=== PATIENT | female | born 1940 | race Hispanic/Latino ===

== ENCOUNTER 2017-07-11 09:37 | Inpatient (IN) | payer OTHER ==
--- OUTSIDE RECORDS SUMMARY | 2017-07-11 09:39 | XMS REPORT | Clinical Summary ---
:1940 Author Organization [facility] Address [address] [place] [id number] Care Team Providers Name Role Phone Fredy Torres MD Primary Care Provider Allergies No Known Allergies Current Medications Prescription Sig. Disp. Refills Start Date End Date Status hydrALAZINE Take 25 mg by mouth 2 Active (APRESOLINE) 25 MG (two) times a day. tablet carvedilol (COREG) 12.5 Take 12.5 mg by mouth Active MG tablet 2 (two) times a day with meals. NIFEdipine XL Take 30 mg by mouth 2 Active (PROCARDIA XL) 30 MG 24 (two) times a day. hr tablet lovastatin (MEVACOR) 10 Take 10 mg by mouth Active MG tablet nightly. bimatoprost (LUMIGAN) Administer 1 drop to Active 0.01 % ophthalmic drops both eyes nightly. sitaGLIPtin-metformin Take 1 tablet by Active (JANUMET XR) 100-1,000 mouth daily. mg tablet, ER multiphase 24 hr Active Problems No known active problems Encounters Date Type Specialty Care Team Description 10/09/2016 Hospital Encounter General Surgery Abram Van MD 10/09/2016 Anesthesia Event General Surgery Patricia Cortés CRNA 10/09/2016 Procedure Pass General Surgery 10/09/2016 Surgery General Surgery Rehan PHACOEMULSIFICATIONAbram MD CATARACT, WITH IOL IMPLANTATION 2016 Emergency Emergency Medicine Deisy Miranda MD (Primary Dx) 2016 Pre-Admit Testing Pre-Admission Preop testing Appointment Testing (Primary Dx) 09/11/2016 Procedure Pass General Surgery 08/07/2016 Procedure Pass General Surgery 08/07/2016 Procedure Pass General Surgery after 07/10/2016 Family History Medical History Relation Name Comments No Known Problems Father Diabetes Mother Relation Name Status Comments Father Mother Social History Tobacco Use Types Packs/Day Years Used Date Former Smoker Cigarettes 0.5 10 Smokeless Tobacco: Never Used Alcohol Use Drinks/Week oz/Week Comments No Sex Assigned at Date Recorded Not on file Last Filed Vital Signs Vital Sign Reading Time Taken Blood Pressure 137/65 10/09/2016 10:30 AM CDT Pulse 54 10/09/2016 10:30 AM CDT Temperature 36.4 C (97.6 F) 10/09/2016 10:30 AM CDT Respiratory Rate 16 10/09/2016 10:30 AM CDT Oxygen Saturation 99% 10/09/2016 10:30 AM CDT Inhaled Oxygen Concentration - - Weight 51.7 kg (114 lb) 10/09/2016 8:16 AM CDT Height 149.9 cm (4' 11") 10/09/2016 8:16 AM CDT Body Mass Index 23.03 10/09/2016 8:16 AM CDT Plan of Treatment Health Maintenance Due Date Last Done Comments BREAST CANCER SCREENING 10/07/1991 COLON CANCER SCREENING 10/07/1991 SHINGRIX VACCINE (#1) 10/07/1991 ZOSTER VACCINE 2001 PNEUMOCOCCAL POLYSACCHARIDE VACCINE AGE 65 AND OVER 2006 PNEUMOCOCCAL-13 2006 INFLUENZA VACCINE 09/26/2017 Implants Implanted Type Area Religion Professor Device Expiration Model / Identifier Date Serial / Lot Lens Iol Asprc Asymet Bicnvx Ant +26.0d 0deg 6x13mm - [id number] - [id number] Intraocular Left: BARTOLOME 04/26/2019 [id number] 260 / Implanted: Qty: 1 on 10/09/2016 by Abram Van MD [employer] [facility] [id number] / [id number] Procedures Procedure Name Priority Date/Time Associated Diagnosis Comments PHACOEMULSIFICATION, 10/09/2016 9:15 AM CATARACT RIGHT EYE CATARACT, WITH IOL CDT H25.11 IMPLANTATION after 07/10/2016 Results POC glucose (10/09/2016 10:02 AM)Only the most recent of2 resultswithin the time period is included. Component Value Ref Range POC glucose 179 (H) 65 - 99 mg/dL Comment: Meter ID: [id number] Card Decorator: William Salvador Specimen Performing Laboratory [facility] DEPARTMENT OF PATHOLOGY AND GENOMIC MEDICINE [address] [place] [address] ECG ED Preliminary Interpretation - NOT AN ORDER (2016 9:53 PM) Narrative Deisy Miranda MD 10/06/20169:53 PM ECG ED Preliminary Interpretation - Not an Order Performed by: DEISY MIRANDA Authorized by: DEISY MIRANDA ECG reviewed by ED Physician in the absence of a signal tower director: yes Rate: ECG rate:58 Rhythm: Rhythm: sinus bradycardia Comments: 1st degree AV block XR Chest 1 Vw Portable (2016 2:30 PM) Specimen Performing Laboratory [facility] [address] [place] [address] Narrative EXAMINATION:XR CHEST 1 VW PORTABLE CLINICAL HISTORY:Chest Pain COMPARISON:None IMPRESSION: Vague 12 mm opacity overlying the right upper lobe is felt more likely to represent anterior first rib rather than a true pulmonary nodule. Chest CT is recommended for confirmation. The lungs are otherwise clear. No pleural fluid or pneumothorax is seen. The cardiomediastinal silhouette and bones are within normal limits. [id number] Procedure Note Hm Interface, Radiology Results Incoming - 2016 3:10 PM CDT EXAMINATION: XR CHEST 1 VW PORTABLE CLINICAL HISTORY: Chest Pain COMPARISON: None IMPRESSION: Vague 12 mm opacity overlying the right upper lobe is felt more likely to represent anterior first rib rather than a true pulmonary nodule. Chest CT is recommended for confirmation. The lungs are otherwise clear. No pleural fluid or pneumothorax is seen. The cardiomediastinal silhouette and bones are within normal limits. [id number] Estimated GFR (2016 2:03 PM) Component Value Ref Range GFR Non Af Amer 48 (A) mL/min/1.73 m2 GFR Af Amer 59 (A) mL/min/1.73 m2 Comment: Chronic kidney disease: <60 mL/min/1.73m2 Kidney failure: <15 mL/min/1.73m2 The estimated GFR is calculated from the IDMS-traceable Modification of Diet in Renal Disease Equation. The accuracy of the calculation is poor when the creatinine is normal. Calculated values >90 mL/min/1.73m2 are not reported. This equation has not been validated in children (<18 years), women, the elderly (>70 years), or ethnic groups other than Caucasians and Americans. Specimen Performing Laboratory Plasma specimen [facility] DEPARTMENT PATHOLOGY AND [employer] [address] [place] [address] Troponin (2016 2:03 PM) Component Value Ref Range Troponin <0.300 0.000 - 0.300 ng/mL Comment: 0.30 - 1.49 ng/mlMay indicate increased risk of acute coronary syndrome. >=1.5 ng/mlConsistent with acute myocardial infarction. The diagnostic value of a single normal or non-diagnostic result is questionable.Serial samples at 2-6 hour intervals are required to rule out acute myocardial injury. Specimen Performing Laboratory Plasma specimen [facility] PATHOLOGY AND [facility] [address] [place] [address] CBC with platelet and differential (2016 2:03 PM) Component Value Ref Range WBC 5.61 4.50 - 11.00 k/uL RBC 3.43 (L) 4.20 - 5.50 m/uL HGB 10.3 (L) 12.0 - 16.0 g/dL HCT 31.3 (L) 37.0 - 47.0 % MCV 91.3 82.0 - 100.0 fL MCH 30.0 27.0 - 34.0 pg MCHC 32.9 31.0 - 37.0 g/dL RDW - SD 41.0 37.0 - 55.0 fL MPV 11.1 8.8 - 13.2 fL Platelet count 183 150 - 400 k/uL Nucleated RBC 0.00 /100 WBC Neutrophils 65.3 39.0 - 69.0 % Lymphocytes 22.8 (L) 25.0 - 45.0 % Monocytes 8.9 0.0 - 10.0 % Eosinophils 2.3 0.0 - 5.0 % Basophils 0.5 0.0 - 1.0 % Immature granulocytes 0.2Comment: "Immature granulocytes" 0.0 - 1.0 % (promyelocytes, myelocytes, metamyelocytes) Specimen Performing Laboratory Blood [facility] DEPARTMENT OF PATHOLOGY AND [facility] [address] [place] [address] Comprehensive metabolic panel (2016 2:03 PM) Component Value Ref Range Sodium 142 135 - 148 mEq/L Potassium 4.5 3.5 - 5.0 mEq/L Chloride 103 98 - 112 mEq/L CO2 28 24 - 31 mEq/L Anion gap 11 7 - 15 mEq/L Comment: Starting from May , anion gap calculation no longer incorporates potassium. Please note the change. BUN 26 (H) 8 - 23 mg/dL Creatinine 1.1 (H) 0.5 - 0.9 mg/dL Glucose 142 (H) 65 - 99 mg/dL Calcium 9.8 8.8 - 10.2 mg/dL Protein 7.3 6.3 - 8.3 g/dL Comment: 4.6-7.0 g/dL 1 week 4.4-7.6 g/dL 7 months-1year5.1-7.3 g/dL 1-2 years5.6-7.5 g/dL >3 years6.0-8.0 g/dL 18-150 6.3-8.3 g/dL Albumin 4.5 3.5 - 5.0 g/dL A/G ratio 1.6 0.7 - 3.8 Alkaline phosphatase 82 35 - 104 U/L AST 15 10 - 35 U/L ALT 7 5 - 50 U/L Total bilirubin <0.2 0.0 - 1.2 mg/dL Specimen Performing Laboratory Plasma specimen [facility] DEPARTMENT OF PATHOLOGY AND GENOMIC MEDICINE [address] [place] [address] ECG 12 lead (2016 1:51 PM) Component Value Ref Range Ventricular rate 58 Atrial rate 58 QRSD interval 86 QT interval 454 QTC interval 445 P axis 1 69 QRS axis 1 31 T wave axis 78 EKG impression Sinus bradycardia with 1st degree AV block-Otherwise normal ECG-No previous ECGs available- Specimen Performing Laboratory [facility] [address] [place] [address] after 07/10/2016 Insurance Payer Benefit Plan / Group Subscriber ID Type Phone Address [employer]NA MEDICARE AETNA MEDICARE HMO/PPO [facility] xxxxxxxx HMO [phone] [address]
[2017-07-11 10:53] LABS: Absolute Monocytes 0.4 K/uL (0.1-1.3); Absolute Neutrophil 5.1 K/uL (1.8-8.0); Basophils % 0.5 % (0-1.3); Hematocrit 30.9 % (36.0-45.0); Lymphocytes % 15.6 % (15.3-44.8); MCH 29.4 pg (27.0-35.0); MCV 90.8 fL (80-100); MPV 10.3 fL (7.6-11.3); Monocytes % 6.6 % (3.3-12.3)
[2017-07-11] MEDS ORDERED: NA CHLORIDE 0.9% 1,000 ML ONE ×2 (11:05→15:33)
[2017-07-11 11:08] LABS: Potassium 4.2 mEq/L (3.6-5.0)
[2017-07-11 11:14] LABS: Albumin 3.9 g/dL (3.2-5.5); Bilirubin Direct 0.1 mg/dL (0-0.2); Bilirubin Total 0.4 mg/dL (0.3-1.2); Protein, Total 6.6 g/dL (6.0-8.3)
--- NOTE | 2017-07-11 12:16 | ER ---
Nurse's Notes [facility] Name: Tika Guadalupe Age: 76 yrs Sex: Female : 1940 Arrival Date: 07/11/2017 Time: 09:41 Bed 13 Private MD: Anthony Torres C Diagnosis: Hypotension;Diarrhea, unspecified Presentation: 07/11 10:05 Presenting complaint: Patient states: Reports diarrhea since last night. 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 Denies pain or blood in stool. Transition of care: patient was not received from another setting of care. Onset of symptoms was July 11, 2017. Care prior to arrival: None. 10:05 Method Of Arrival: Ambulatory aj 10:05 Acuity: APRYL 3 aj 10:40 Initial Sepsis Screen: Does the patient meet any 2 criteria? Mean Arterial Pressure sg (MAP) < 65. No. Patient's initial sepsis screen is negative. Does the patient have a suspected source of infection? No. Patient's initial sepsis screen is negative. Triage Assessment: 10:07 General: Appears in no apparent distress. comfortable, Behavior is calm, cooperative, aj appropriate for age. Pain: Denies pain. Neuro: Level of Consciousness is awake, alert, obeys commands, Oriented to person, place, time, situation, Appropriate for age. Respiratory: Airway is patent Respiratory effort is even, unlabored, Respiratory pattern is regular, symmetrical. GI: Abdomen is flat, non-distended, Reports diarrhea. Derm: Skin is intact, is healthy with good turgor, Skin is pink, warm \T\ dry. normal. Historical: - Allergies: 10:07 No Known Allergies; aj - Home Meds: 12:26 carvedilol 12.5 mg oral tab 1 tab 2 times per day [Active]; lovastatin 10 mg Oral tab 1 sg tab once daily [Active]; clonidine HCl 0.1 mg Oral tab 1 tab 2 times per day [Active]; losartan 100 mg oral tab 1 tab once daily [Active]; nifedipine 30 mg Oral tr24 1 tab twice daily [Active]; hydralazine 25 mg Oral tab 1 tab 2 times per day [Active]; Janumet 50-500 mg oral tab 1 tab 2 times per day [Active]; - PMHx: 14:39 Hypertension; Diabetes - NIDDM; sg - PSHx: 10:07 left masectomy; colon surgery; Appendectomy; Cholecystectomy; aj - Immunization history:: Adult Immunizations up to date. - Social history:: Smoking status: Patient/guardian denies using tobacco. Screenin:10 Abuse screen: Denies threats or abuse. Denies injuries from another. Nutritional iw screening: No deficits noted. Tuberculosis screening: No symptoms or risk factors identified. Fall Risk IV access (20 points). Assessment: 10:40 Reassessment: Donald GRESHAM at bedside at this time. General: Appears in no apparent sg distress. comfortable, slender, well groomed, well developed, well nourished, Behavior is calm, cooperative, appropriate for age. Pain: Denies pain. Neuro: Level of Consciousness is awake, alert, obeys commands, Oriented to person, place, time, situation, Speech is normal, Facial symmetry appears normal. Cardiovascular: Heart tones S1 S2 present Capillary refill is brisk in bilateral fingers. Respiratory: Airway is patent Respiratory effort is even, unlabored, Respiratory pattern is regular, symmetrical, Breath sounds are clear. GI: Abdomen is flat, non-distended, Bowel sounds present X 4 quads. Reports diarrhea. : No signs and/or symptoms were reported regarding the genitourinary system. EENT: No signs and/or symptoms were reported regarding the EENT system. Derm: Skin is intact, is healthy with good turgor, Skin is dry, Skin is pale, Skin temperature is warm. Musculoskeletal: No signs and/or symptoms reported regarding the musculoskeletal system. 10:58 Reassessment: Donald GRESHAM notified of pt VS. sg 11:10 Reassessment: Patient appears in no apparent distress at this time. Patient and/or iw family updated on plan of care and expected duration. Pain level reassessed. Patient is alert, oriented x 3, equal unlabored respirations, skin warm/dry/pink. warm blanket given, son at bedside. 11:46 Reassessment: Donald GRESHAM notified of VS, BP remains hypotensive at this time, orders sg received, see EMAR. 14:50 Reassessment: Patient appears in no apparent distress at this time. Patient and/or sg family updated on plan of care and expected duration. Pain level reassessed. Patient is alert, oriented x 3, equal unlabored respirations, skin warm/dry/pink. pt updated attempt to call report, receiving nurse unavailable at this time, awaiting a call back, pt stated understanding, will continue to monitor, pt son remains at bedside at this time, updated on room number 408, pt son stated understanding. 15:45 Reassessment: Patient appears in no apparent distress at this time. Patient and/or sg family updated on plan of care and expected duration. Pain level reassessed. Patient is alert, oriented x 3, equal unlabored respirations, skin warm/dry/pink. Vital Signs: 10:07 BP 99 / 47; Pulse 63; Resp 19; Temp 97.2; Pulse Ox 99% on R/A; Weight 53.98 kg; Height aj 4 ft. 11 in. (149.86 cm); Pain 0/10; 10:58 BP 96 / 40; Pulse 55; Resp 17 S; Pulse Ox 98% on R/A; Pain 0/10; sg 11:40 BP 88 / 37; Pulse 55; Resp 16; Pulse Ox 100% on R/A; Pain 0/10; sg 12:21 BP 92 / 37; Pulse 56; Resp 16; Pulse Ox 99% on R/A; Pain 0/10; sg 12:26 BP 96 / 50; sg 13:30 BP 94 / 50; Pulse 60; Resp 18; Pulse Ox 100% on R/A; Pain 0/10; sg 14:50 BP 92 / 52; Pulse 58 MON; Resp 17 S; Pulse Ox 100% on R/A; sg 15:40 BP 96 / 54; Pulse 56; Resp 17; Temp 97.2; Pulse Ox 97% on R/A; Pain 0/10; sg 16:00 BP 104 / 55; Pulse 57; Resp 16; Pulse Ox 97% on R/A; Pain 0/10; sg 10:07 Body Mass Index 24.03 (53.98 kg, 149.86 cm) aj Rona Coma Score: 11:40 Eye Response: spontaneous(4). Verbal Response: oriented(5). Motor Response: obeys sg commands(6). Total: 15. 12:21 Eye Response: spontaneous(4). Verbal Response: oriented(5). Motor Response: obeys sg commands(6). Total: 15. 13:30 Eye Response: spontaneous(4). Verbal Response: oriented(5). Motor Response: obeys sg commands(6). Total: 15. 14:50 Eye Response: spontaneous(4). Verbal Response: oriented(5). Motor Response: obeys sg commands(6). Total: 15. 15:40 Eye Response: spontaneous(4). Verbal Response: oriented(5). Motor Response: obeys sg commands(6). Total: 15. ED Course: 09:41 Patient arrived in ED. mr 09:41 Anthony Torres MD is Private Physician. mr 10:06 Triage completed. aj 10:07 Arm band placed on right wrist. Patient placed in an exam room, on a stretcher. aj 10:10 Patient has correct armband on for positive identification. Placed in gown. Bed in low sg position. Call light in reach. Side rails up X2. nuclear monitoring technician on. Pulse ox on. NIBP on. Warm blanket given. Head of bed elevated. 10:22 Donald Eden PA is PHCP. jr8 10:22 Venancio Norris MD is Attending Physician. jr8 10:40 Initial lab(s) drawn, by co, sent to lab. Inserted saline lock: 22 gauge in right sg wrist, using aseptic technique. Blood collected. 10:40 No provider procedures requiring assistance completed. sg 10:53 Chau Langford RN is Primary Nurse. sg 12:14 Anthony Torres MD is Hospitalizing Provider. jr8 16:00 Patient admitted, IV remains in place. intact, No redness/swelling at site. sg Administered Medications: 11:09 Drug: NS 0.9% 500 ml Route: IV; Rate: bolus; Site: right wrist; iw 11:46 Follow up: Response: No adverse reaction; IV Status: Completed infusion; IV Intake: sg 500ml 11:45 Drug: NS 0.9% 500 ml Route: IV; Rate: bolus; Site: right wrist; sg 15:44 Drug: NS 0.9% 500 ml Route: IV; Rate: bolus; Site: right wrist; sg Intake: 11:46 IV: 500ml; Total: 500ml. sg Outcome: 12:15 Decision to Hospitalize by Provider. jr8 15:50 Admitted to Tele accompanied by tech, family with patient, via stretcher, room 408, sg with chart, Report called to Aysha DIAZ 15:50 Condition: stable 15:50 Instructed on follow up and referral plans. medication usage, safety practices, Demonstrated understanding of instructions. 15:57 Patient left the ED. iw Signatures: Chau Langford RN RN sg Myers, Amanda, RN RN aj Rivera, Maria mr Williams, Irene, RN RN iw Roszak, Josh, PA PA jr8
--- NOTE | 2017-07-11 12:16 | EDPHYS ---
Physician Documentation [facility] Name: Tika Guadalupe Age: 76 yrs Sex: Female : 1940 Arrival Date: 07/11/2017 Time: 09:41 Bed 13 Private MD: Anthony Torres C ED Physician Venancio Norris HPI: 07/11 11:01 This 76 yrs old Female presents to ER via Ambulatory with complaints of jr8 Diarrhea. 11:01 The patient presents to the emergency department with diarrhea. Onset: The jr8 symptoms/episode began/occurred acutely, yesterday. Possible causes: unknown. The symptoms are aggravated by nothing. The symptoms are alleviated by nothing. Associated signs and symptoms: The patient has no apparent associated signs or symptoms. Severity of symptoms: At their worst the symptoms were mild in the emergency department the symptoms are unchanged. It is unknown whether or not the patient has had similar symptoms in the past. The patient has not recently seen a physician. 2 days of diarrhea. Denies abdominal pain, n/v, fevers, blood or mucous in stool . Historical: - Allergies: 10:07 No Known Allergies; aj - Home Meds: 12:26 carvedilol 12.5 mg oral tab 1 tab 2 times per day [Active]; lovastatin 10 mg Oral tab 1 sg tab once daily [Active]; clonidine HCl 0.1 mg Oral tab 1 tab 2 times per day [Active]; losartan 100 mg oral tab 1 tab once daily [Active]; nifedipine 30 mg Oral tr24 1 tab twice daily [Active]; hydralazine 25 mg Oral tab 1 tab 2 times per day [Active]; Janumet 50-500 mg oral tab 1 tab 2 times per day [Active]; - PMHx: 14:39 Hypertension; Diabetes - NIDDM; sg - PSHx: 10:07 left masectomy; colon surgery; Appendectomy; Cholecystectomy; aj - Immunization history:: Adult Immunizations up to date. - Social history:: Smoking status: Patient/guardian denies using tobacco. ROS: 11:01 Eyes: Negative for injury, pain, redness, and discharge, ENT: Negative for injury, jr8 pain, and discharge, Neck: Negative for injury, pain, and swelling, Cardiovascular: Negative for chest pain, palpitations, and edema, Respiratory: Negative for shortness of breath, cough, wheezing, and pleuritic chest pain, Back: Negative for injury and pain, MS/Extremity: Negative for injury and deformity, Skin: Negative for injury, rash, and discoloration, Neuro: Negative for headache, weakness, numbness, tingling, and seizure. 11:01 Abdomen/GI: Positive for diarrhea, Negative for abdominal pain, nausea and vomiting, constipation, abdominal cramps, abdominal distension, anorexia, dysphagia, hematemesis, black/tarry stool, rectal pain, rectal bleeding, bowel incontinence, flatulence. Exam: 11:01 Eyes: Pupils equal round and reactive to light, extra-ocular motions intact. Lids and jr8 lashes normal. Conjunctiva and sclera are non-icteric and not injected. Cornea within normal limits. Periorbital areas with no swelling, redness, or edema. ENT: Nares patent. No nasal discharge, no septal abnormalities noted. Tympanic membranes are normal and external auditory canals are clear. Oropharynx with no redness, swelling, or masses, exudates, or evidence of obstruction, uvula midline. Mucous membranes moist. Neck: Trachea midline, no thyromegaly or masses palpated, and no cervical lymphadenopathy. Supple, full range of motion without nuchal rigidity, or vertebral point tenderness. No Meningismus. Cardiovascular: Regular rate and rhythm with a normal S1 and S2. No gallops, murmurs, or rubs. Normal PMI, no JVD. No pulse deficits. Respiratory: Lungs have equal breath sounds bilaterally, clear to auscultation and percussion. No rales, rhonchi or wheezes noted. No increased work of breathing, no retractions or nasal flaring. Abdomen/GI: Soft, non-tender, with normal bowel sounds. No distension or tympany. No guarding or rebound. No evidence of tenderness throughout. Back: No spinal tenderness. No costovertebral tenderness. Full range of motion. Skin: Warm, dry with normal turgor. Normal color with no rashes, no lesions, and no evidence of cellulitis. MS/ Extremity: Pulses equal, no cyanosis. Neurovascular intact. Full, normal range of motion. Neuro: Awake and alert, GCS 15, oriented to person, place, time, and situation. Cranial nerves II-XII grossly intact. Motor strength 5/5 in all extremities. Sensory grossly intact. Cerebellar exam normal. Normal gait. Vital Signs: 10:07 BP 99 / 47; Pulse 63; Resp 19; Temp 97.2; Pulse Ox 99% on R/A; Weight 53.98 kg; Height aj 4 ft. 11 in. (149.86 cm); Pain 0/10; 10:58 BP 96 / 40; Pulse 55; Resp 17 S; Pulse Ox 98% on R/A; Pain 0/10; sg 11:40 BP 88 / 37; Pulse 55; Resp 16; Pulse Ox 100% on R/A; Pain 0/10; sg 12:21 BP 92 / 37; Pulse 56; Resp 16; Pulse Ox 99% on R/A; Pain 0/10; sg 12:26 BP 96 / 50; sg 13:30 BP 94 / 50; Pulse 60; Resp 18; Pulse Ox 100% on R/A; Pain 0/10; sg 14:50 BP 92 / 52; Pulse 58 MON; Resp 17 S; Pulse Ox 100% on R/A; sg 15:40 BP 96 / 54; Pulse 56; Resp 17; Temp 97.2; Pulse Ox 97% on R/A; Pain 0/10; sg 16:00 BP 104 / 55; Pulse 57; Resp 16; Pulse Ox 97% on R/A; Pain 0/10; sg 10:07 Body Mass Index 24.03 (53.98 kg, 149.86 cm) aj Rona Coma Score: 11:40 Eye Response: spontaneous(4). Verbal Response: oriented(5). Motor Response: obeys sg commands(6). Total: 15. 12:21 Eye Response: spontaneous(4). Verbal Response: oriented(5). Motor Response: obeys sg commands(6). Total: 15. 13:30 Eye Response: spontaneous(4). Verbal Response: oriented(5). Motor Response: obeys sg commands(6). Total: 15. 14:50 Eye Response: spontaneous(4). Verbal Response: oriented(5). Motor Response: obeys sg commands(6). Total: 15. 15:40 Eye Response: spontaneous(4). Verbal Response: oriented(5). Motor Response: obeys sg commands(6). Total: 15. MDM: 10:22 Patient medically screened. jr8 12:13 Data reviewed: vital signs, nurses notes, lab test result(s), and as a result, I will jr8 admit patient. Data interpreted: Pulse oximetry: on room air is 100 %. Interpretation: normal. Counseling: I had a detailed discussion with the patient and/or guardian regarding: the historical points, exam findings, and any diagnostic results supporting the discharge/admit diagnosis, lab results, the need for further work-up and treatment in the hospital. Physician consultation: A Brian AHUMADA was called at 12:13, was contacted at 12:14, regarding admission, to the medical/surgical unit. consult, patient's condition, and will see patient Dr. Torres wants to admit for blood pressure control and diarrhea. Requests inpatient admission. 07/11 10:23 Order name: Basic Metabolic Panel; Complete Time: 11:38 07/11 10:23 Order name: CBC with Diff; Complete Time: 10:59 07/11 10:23 Order name: Creatinine for Radiology; Complete Time: 11:10 [facility] 07/11 10:23 Order name: Hepatic Function; Complete Time: 11:38 [facility] 07/11 10:23 Order name: Lipase; Complete Time: 11:38 07/11 15:46 Order name: Urine Dipstick--Ancillary (enter results) em1 07/11 10:23 Order name: IV Saline Lock; Complete Time: 10:53 07/11 10:23 Order name: Labs collected and sent; Complete Time: 10:53 Administered Medications: 11:09 Drug: NS 0.9% 500 ml Route: IV; Rate: bolus; Site: right wrist; iw 11:46 Follow up: Response: No adverse reaction; IV Status: Completed infusion; IV Intake: sg 500ml 11:45 Drug: NS 0.9% 500 ml Route: IV; Rate: bolus; Site: right wrist; sg 15:44 Drug: NS 0.9% 500 ml Route: IV; Rate: bolus; Site: right wrist; sg Disposition: 18:03 Co-signature as Attending Physician, Venancio Norris MD I agree with the assessment and kdr plan of care. Disposition: 07/11/17 12:15 Hospitalization ordered by Anthony Torres for Inpatient Admission. Preliminary diagnosis are Hypotension, Diarrhea, unspecified. - Bed requested for Telemetry/MedSurg (Inpatient). - Status is Inpatient Admission. iw - Condition is Stable. - Problem is new. - Symptoms are unchanged. UTI on Admission? No Signatures: Dispatcher [employer] EDMS Chau Langford, RN Dorinda Galicia, RN Venancio Almonte MD MD kdr Williams, Irene, RN RN iw Martinez, Eric em1 Donald Eden PA PA jr8 Corrections: (The following items were deleted from the chart) 14:56 12:15 Hospitalization Ordered by A Brian AHUMADA for Inpatient Admission. Preliminary em1 diagnosis is Hypotension; Diarrhea, unspecified. Bed requested for Telemetry/MedSurg (Inpatient). Status is Inpatient Admission. Condition is Stable. Problem is new. Symptoms are unchanged. UTI on Admission? No. jr8 15:57 14:56 07/11/2017 12:15 Hospitalization Ordered by A Brian AHUMADA for Inpatient Admission. iw Preliminary diagnosis is Hypotension; Diarrhea, unspecified. Bed requested for Telemetry/MedSurg (Inpatient). Status is Inpatient Admission. Condition is Stable. Problem is new. Symptoms are unchanged. UTI on Admission? No. em1
[2017-07-11] MEDS ORDERED: D50W 25 GM/50 ML SYRINGE IV PRN (16:36)
[2017-07-11] MEDS: INSULIN -REGULAR HUMAN 50 UNIT/0.5 ML ML SQ SCH ×2 (16:36→21:00)
[2017-07-11] MEDS ORDERED: GLUCAGON 1 MG/VIAL IM PRN (16:36)
[2017-07-11] MEDS: NA CHLORIDE 0.9% 1,000 ML IV SCH ×2 (16:36→20:24)
[2017-07-11] MEDS ORDERED: ONDANSETRON 4 MG/2 ML VIAL IV PRN (16:36)
[2017-07-11] MEDS ORDERED: ACETAMINOPHEN 500 MG TAB PO PRN (16:36)
[2017-07-11 16:44] LABS: Urine Blood NEGATIVE (NEG); Urine Glucose NEGATIVE (NEG); Urine Protein NEGATIVE (NEG); Urine Specific Gravity 1.015 (1.005-1.030); Urine pH 7.5 (5.0-7.0)
[2017-07-11 17:12] VITALS: BMI 24.0
[2017-07-12] MEDS: NA CHLORIDE 0.9% 1,000 ML IV SCH (02:36)
[2017-07-12 04:06] LABS: Absolute Lymphocytes (CBC) 1.4 K/uL (0.7-4.9); Absolute Monocytes 0.6 K/uL (0.1-1.3); Absolute Neutrophil 3.7 K/uL (1.8-8.0); Basophils % 0.6 % (0-1.3); Eosinophils % 1.9 % (0-4.4); Hematocrit 29.3 % (36.0-45.0); MCH 29.5 pg (27.0-35.0); MPV 10.2 fL (7.6-11.3); Monocytes % 10.1 % (3.3-12.3); RBC Red Blood Cell Count 3.22 M/uL (3.86-4.86)
[2017-07-12 04:46] LABS: Potassium 4.1 mEq/L (3.6-5.0)
--- NOTE | 2017-07-12 06:18 | HP ---
Date of Admission: 07/11/2017 Chief Complaint: Diarrhea, weak. History Of Present Illness: A 76-year-old female patient who lives with her son , started her diarrhea yesterday. At this moment, the patient's son brought her in the emergency room. The patient did take her antihypertensive medication this morning. Normally without her blood pressure medication, her blood pressure runs extremely high anywhere between 180-200 systolic blood pressure range but if she takes her blood pressure medications regularly then it is well controlled. Today in the emergency room, her lowest systolic blood pressure was 88 systolic. After she was evaluated in the ER, I was contacted requesting admission to the hospital. Since her time of presentation to the emergency room till I saw her this evening. She received approximately 1800 cc of IV fluids and her systolic blood pressure is still running in the range of between 90 to 100. She denies any abdominal pain. No nausea, no vomiting. No bleeding. Allergies: SHE IS LISTED ALLERGIC TO GLIMEPIRIDE, CAUSING ITCHING. Review of Systems: GI: As mentioned above. Constitutional: As mentioned above. All other systems reviewed and negative. Past Medical History: Significant for type 2 diabetes mellitus, mixed hyperlipidemia, hypertension, left breast cancer, anemia, gastroesophageal reflux disease, prior history of asthma, osteoarthritis at multiple sites. Past Surgical History: Mastectomy in 1995. Family History: Significant for father had stroke. Mother, hypertension and diabetes mellitus. Social History: Negative for smoking and alcohol use. Medications: Aspirin 81 mg p.o. daily, carvedilol 12.5 mg 2 times a day, clonidine 0.1 mg 2 times a day, hydralazine 25 mg the patient takes 2 tablets by mouth 2 times a day, Janumet one tablet p.o. 2 times a day, losartan 100 mg p.o. daily, lovastatin 10 mg p.o. daily, Lumigan eye drops, and nifedipine ER 30 mg p.o. 2 times a day. Physical Examination: Vital Signs: Initial blood pressure when she was admitted 99/47, pulse 63, respiratory rate 19, temperature 97.2, oxygen saturation 99%, height 4 feet 11 inches, weight 119 pounds. General: Awake, alert, oriented, not in distress. HEENT: Head atraumatic, normocephalic. Conjunctivae nonerythematous. Sclerae white. Mouth, no thrush or edema noted. Ears/Nose, no mass, lesion, discharge noted. Neck: Supple. No JVD, lymph nodes, bruit, thyromegaly noted. Lungs: Bilateral good equal air entry. Clear to auscultation. No rhonchi. No rales. Heart: Normal heart sounds, no murmur or gallop. Abdomen: Soft, bowel sounds normal. No guarding, rigidity, tenderness, mass, hepatosplenomegaly, distention, or bruit noted. Extremities: No leg edema. No calf tenderness. Skin: No rash, ulcer, cellulitis. Lymphatics: No lymph node enlargement in neck, supraclavicular, infraclavicular region. Neuro: No focal neurological deficit. Chest: Unremarkable. External Genitalia: Deferred. Rectal: Deferred. Laboratory Data: White count 6.6, hemoglobin 10, platelets 156. Sodium 136, potassium 4.2, chloride 105, bicarb 23, BUN 43, creatinine 1.71. Glucose 153. Liver function tests unremarkable. Lipase 20. Urinalysis; 1+ leukocyte esterase, 2+ ketones. Impression: 1. Acute gastroenteritis. 2. Volume depletion. 3. Acute kidney injury. 4. Type 2 diabetes mellitus. 5. Mixed hyperlipidemia. 6. Hypertension. 7. Left breast cancer. 8. Osteoarthritis, multiple sites. 9. Gastroesophageal reflux disease. Plan: 1. Admit the patient to hospital for further evaluation and management of this problem. The patient is appropriate for inpatient and is expected to spend 2 midnights in hospital. We will continue IV fluid hydration, monitor her renal function electrolytes, fall precautions, and DVT prophylaxis will be ordered. I will see her tomorrow for followup. We will repeat blood work tomorrow morning. Depending on the patient's condition, possible discharge day after tomorrow. Details and plan of treatment discussed with the patient and family member who was at bedside. We will hold her antihypertensive and diabetes medication at this point. We will restart it at appropriate time. We will start her on clear liquid diet and tomorrow, we will consider to advance diet depending on her condition. ABNER/MODL Voice ID: [id number] FERNANDA
[2017-07-12] MEDS: INSULIN -REGULAR HUMAN 50 UNIT/0.5 ML ML SQ SCH ×4 (07:30→21:00)
[2017-07-12] MEDS ORDERED: cloNIDine HCl 0.1 MG TAB PO SCH (09:00)
[2017-07-12] MEDS: NACHLORIDE 0.45% 1,000 ML IV SCH ×3 (09:00→21:02)
[2017-07-12] MEDS: ENOXAPARIN 30 MG/0.3 ML SQ SCH (13:07)
[2017-07-12] MEDS: ASPIRIN EC 81 MG TAB PO SCH (13:08)
[2017-07-12] MEDS: HYDRALAZINE HCL 25 MG TABLET PO SCH ×2 (13:08→21:03)
[2017-07-12] MEDS: CARVEDILOL 12.5 MG TAB PO SCH ×2 (13:08→21:03)
[2017-07-12] MEDS: NIFEDIPINE XL 30 MG TABLET PO SCH ×2 (14:12→21:02)
[2017-07-12] MEDS: cloNIDine HCl 0.1 MG TAB PO PRN (16:34)
[2017-07-12] MEDS: ATORVASTATIN 10 MG TAB PO SCH (17:49)
--- NOTE | 2017-07-13 01:49 | PN ---
Date of Progress Note: 07/12/2017 Subjective: The patient was seen this morning for followup. No new complaints or problems reported by patient. She was lying in bed, not in any distress. There was no family member with her at [facility]. Denies any abdominal pain, nausea or vomiting. No diarrhea overnight, no bleeding. Objective: Vital signs: Reviewed. HEENT: Unremarkable. Lungs: Clear to auscultation. Heart: Heart sounds normal. Abdomen: Soft. Bowel sounds normal. No guarding, rigidity, tenderness, or distention. Extremities: No leg edema. Laboratory Data: White count 5.8, hemoglobin 9.5, platelets 140. Sodium 141, potassium 4.1, chlorid e 115, bicarb 24, BUN 32, creatinine 1.07. Impression: 1.Acute gastroenteritis. 2.Hypertension. 3.Type 2 diabetes mellitus. 4.Anemia, chronic. Plan: The patient's blood pressure started to go up today. Her home medications were continued incl uding her antihypertensive medication. IV fluid was changed. A volume depletion problem has improve d and the IV fluid was changed to half-normal saline. We will repeat blood work tomorrow. Ambulatio n was encouraged. Consultation with physical therapy was ordered to help ambulate the patient and du ring course of day today for elevated blood pressure, we did have to start her on p.r.n. use of cloni dine. I expect her blood pressure to come under better control once she gets back on her usual medic ations. Diet was advanced and I will see her tomorrow for followup. Possible discharge to go home tomorrow depending on her condition. ABNER/MODL Voice ID: [id number] Report ID: [id number]
[2017-07-13] MEDS: INSULIN -REGULAR HUMAN 50 UNIT/0.5 ML ML SQ SCH ×4 (07:30→20:47)
[2017-07-13 08:26] LABS: Folic Acid, (Folate) 15.7 ng/ml (>5.21); Magnesium 1.7 mg/dL (1.8-2.5); Thyroid Stimulating Hormone 3.34 uIU/mL (0.34-5.60)
[2017-07-13] MEDS: NACHLORIDE 0.45% 1,000 ML IV SCH (09:57)
[2017-07-13] MEDS: ENOXAPARIN 30 MG/0.3 ML SQ SCH (09:58)
[2017-07-13] MEDS: CARVEDILOL 12.5 MG TAB PO SCH ×2 (09:59→20:42)
[2017-07-13] MEDS: HYDRALAZINE HCL 25 MG TABLET PO SCH ×2 (09:59→20:42)
[2017-07-13] MEDS: ASPIRIN EC 81 MG TAB PO SCH (09:59)
[2017-07-13] MEDS: NIFEDIPINE XL 30 MG TABLET PO SCH (09:59)
[2017-07-13] MEDS: cloNIDine HCl 0.1 MG TAB PO PRN (12:19)
[2017-07-13] MEDS ORDERED: NIFEDIPINE XL 30 MG TABLET PO ONE (13:30)
[2017-07-13] MEDS: ATORVASTATIN 10 MG TAB PO SCH (18:34)
[2017-07-13] MEDS: NIFEDIPINE XL 60 MG TABLET PO SCH (20:47)
--- NOTE | 2017-07-13 22:28 | PN ---
Date of Progress Note: 07/13/2017 Subjective: The patient was seen this morning. She was lying in bed, not in any distress. Denied a ny complaints. No abdominal pain, nausea, or vomiting. No diarrhea. No bleeding per rectum. Objective: Vital signs: Reviewed. This morning, her systolic blood pressure was between 120-130, b ut then it started going up and it remained between 180-200 systolic. HEENT: Examination unremarkable. Lungs: Clear to auscultation. Heart: Heart sounds normal. Abdomen: Soft. Bowel sounds normal. No guarding, rigidity, tenderness, or distention. Extremities: No leg edema. Laboratory Data: Labs reviewed. Chem-7 shows renal function has improved today. Impression: 1.Acute gastroenteritis. 2.Volume depletion. 3.Hypertension, uncontrolled. 4.Type 2 diabetes mellitus. 5.Anemia, chronic. Plan: We will go ahead and continue current medications. The patient's antihypertensive medications will be continued except one extra dose of nifedipine 30 mg p.o. x1 dose was ordered this afternoon, and as of this evening, we will increase dose from 30 mg 2 times a day to 60 mg 2 times a day. Cont inue rest of her medications. I will see her tomorrow for followup. Depending on blood pressure, we will decide if we can discharge her tomorrow or not. Ambulation was encouraged with physical therapy . She is tolerating diet very well. ABNER/MODL Voice ID: [id number] Report ID: [id number]
[2017-07-13 22:30] VITALS: O2SAT 98
[2017-07-14] MEDS: INSULIN -REGULAR HUMAN 50 UNIT/0.5 ML ML SQ SCH (07:30)
[2017-07-14 08:23] VITALS: BP 169/59; TEMP 97
[2017-07-14] MEDS: NIFEDIPINE XL 60 MG TABLET PO SCH (09:38)
[2017-07-14] MEDS: ENOXAPARIN 30 MG/0.3 ML SQ SCH (09:38)
[2017-07-14] MEDS: HYDRALAZINE HCL 25 MG TABLET PO SCH (09:39)
[2017-07-14] MEDS: ASPIRIN EC 81 MG TAB PO SCH (09:39)
[2017-07-14] MEDS: CARVEDILOL 12.5 MG TAB PO SCH (09:39)
--- NOTE | 2017-07-15 14:30 | DS ---
Date of Discharge: 07/14/2017 Subjective: The patient was seen this morning for followup. Her 2 sons were present at bedside. She was sitting in the chair feeling much better, looking much better. No new complaints or problems reported. No abdominal pain. No nausea, vomiting. No diarrhea. No bleeding. Objective: Vital Signs: Reviewed. HEENT: Examination unremarkable. Lungs: Clear to auscultation. Heart: Heart sounds normal. Abdomen: Soft, bowel sounds normal. No guarding, rigidity, tenderness, or distention. Extremities: No leg edema. Hospital Course: A 76-year-old female patient, admitted to the hospital after she presented to the emergency room with complaints of feeling weak and diarrhea. Please see dictated H and P for more information. The patient came in with volume depletion and acute kidney injury with acute gastroenteritis problem. Her BUN was 43, creatinine 1.71. Liver function tests were unremarkable. She was admitted to the hospital with these problems, was started on IV fluid hydration. Her initial systolic blood pressure was 88 in emergency room when she presented. On IV fluid hydration her condition improved. We started her on diet that she tolerated. Physical therapy was consulted to help ambulate the patient. Overall, her condition has improved. She has not had any recurrence of diarrhea after admission to the hospital. No vomiting. Her blood pressure was initially very low when she came in. She takes multiple blood pressure medications as noted in history and physical. During beginning part of this hospital admission, we did not give her any hypertension medication as her blood pressure was low, but then as blood pressure started coming up we restarted all her home medications. IV fluid was continued. Her renal function came back to normal with IV fluid hydration and in fact, her blood pressure started going up in spite of continue all her usual home medications, her blood pressure was around 200 systolic, so we had to make some more adjustment on her antihypertensive medication, and yesterday I increased her nifedipine from 30 mg twice a day to 60 mg twice a day, and that has actually helped to bring her blood pressure down under better control. We will continue to monitor on outpatient basis and make further adjustment on medications if it becomes necessary. She is feeling fine. Has no complaints, and she is being discharged to go home in stable condition with following discharge medications and instructions: Final Diagnoses: 1. Acute gastroenteritis. 2. Volume depletion. 3. Acute kidney injury. 4. Type 2 diabetes mellitus. 5. Hypertension. 6. Mixed hyperlipidemia. 7. Left breast cancer. 8. Osteoarthritis, multiple sites. 9. Gastroesophageal reflux disease. 10. Vitamin D deficiency. Discharge Medications And Instructions: 1. Continue all prior home medication except stop nifedipine 30 mg dose and start to take nifedipine 60 mg 2 times a day. 2. Follow up at my office in 3 weeks and take [id number] vitamin D3 2000 unit 1 tablet by mouth daily. ABNER/ANETA Voice ID: [id number] Report ID: [id number]
== END 2017-07-14 10:47 | disposition home or self-care (01) | DRG 392 ==
LOC: ER 09:37 → ERHOLD 12:19 → 4TH 15:16
PROVIDERS: ADMIT Internal Medicine; ATTEND Internal Medicine
DX: K52.9 Noninfective gastroenteritis and colitis, unspecified (principal); N17.9 Acute kidney failure, unspecified; E86.9 Volume depletion, unspecified; E11.9 Type 2 diabetes mellitus without complications; I10 Essential (primary) hypertension; E78.2 Mixed hyperlipidemia; M19.90 Unspecified osteoarthritis, unspecified site; K21.9 Gastro-esophageal reflux disease without esophagitis; E55.9 Vitamin D deficiency, unspecified; D64.9 Anemia, unspecified; Z85.3 Personal history of malignant neoplasm of breast
CPT/HCPCS: 36415; 80048; 80076; 81003; 82306; 82607; 82746; 82962; 83690; 83735; 84443; 85025; 96360; 97163; 99285; J1650; J7030

== ENCOUNTER 2019-01-14 13:31 | Emergency (ER) | payer OTHER ==
[2019-01-14 15:29] LABS: Absolute Lymphocytes (CBC) 1.3 K/uL (0.7-4.9); Basophils % 0.4 % (0-1.3); Hematocrit 26.9 % (36.0-45.0); Lymphocytes % 26.2 % (15.3-44.8); MPV 9.8 fL (7.6-11.3); RBC Red Blood Cell Count 2.99 M/uL (3.86-4.86)
[2019-01-14 15:39] LABS: Potassium 4.5 mmol/L (3.5-5.1)
[2019-01-14] MEDS ORDERED: HYDRALAZINE HCL 20 MG/ML VIAL ONE (17:28)
--- NOTE | 2019-01-14 18:02 | ER ---
Nurse's Notes [facility] Name: Tika Guadalupe Age: 78 yrs Sex: Female : 1940 Arrival Date: 01/14/2019 Time: 13:34 Bed 20 Private MD: Anthony Torres C Diagnosis: Hypertension Presentation: 01/14 13:52 Presenting complaint: Home health aide reports BP 208/87 after taking scheduled hb hypertension medication today. Pt denies pain/SOB. Transition of care: patient was not received from another setting of care. Onset of symptoms was January 14, 2019. Risk Assessment: Do you want to hurt yourself or someone else? Patient reports no desire to harm self or others. Care prior to arrival: None. 13:52 Method Of Arrival: Ambulatory hb 13:52 Acuity: APRYL 3 hb 14:10 Initial Sepsis Screen: Does the patient meet any 2 criteria? No. Patient's initial tw2 sepsis screen is negative. Does the patient have a suspected source of infection? No. Patient's initial sepsis screen is negative. Historical: - Allergies: 13:56 No Known Allergies; hb - Home Meds: 13:56 carvedilol 12.5 mg Oral tab 1 tab 2 times per day [Active]; clonidine HCl 0.1 mg Oral hb tab 1 tab 2 times per day [Active]; hydralazine 50 mg oral tab 2 times per day [Active]; Janumet 50-500 mg Oral tab 1 tab 2 times per day [Active]; losartan 100 mg Oral tab 1 tab once daily [Active]; lovastatin 10 mg Oral tab 1 tab once daily [Active]; nifedipine 60 mg oral tr24 once daily [Active]; aspirin 81 mg Oral chew [Active]; - PMHx: 13:56 Diabetes - NIDDM; Hypertension; hb - PSHx: 13:56 left masectomy; colon surgery; Appendectomy; Cholecystectomy; hb - Immunization history:: Adult Immunizations up to date. - Social history:: Smoking status: Patient/guardian denies using tobacco. - Ebola Screening: : No symptoms or risks identified at this time. - Family history:: not pertinent. - Hospitalizations: : No recent hospitalization is reported. Screenin:10 Abuse screen: Denies threats or abuse. Nutritional screening: No deficits noted. tw2 Tuberculosis screening: No symptoms or risk factors identified. Fall Risk Secondary diagnosis (15 points) impaired mobility. Assessment: 14:11 General: Appears in no apparent distress. Behavior is calm, cooperative, appropriate tw2 for age. Pain: Denies pain. Neuro: Level of Consciousness is awake, alert, obeys commands, Oriented to person, place, time, situation. Cardiovascular: Denies chest pain, shortness of breath, Patient's skin is warm and dry. Respiratory: Airway is patent Respiratory effort is even, unlabored, Respiratory pattern is regular, symmetrical. GI: No signs and/or symptoms were reported involving the gastrointestinal system. : No signs and/or symptoms were reported regarding the genitourinary system. EENT: No signs and/or symptoms were reported regarding the EENT system. Derm: No signs and/or symptoms reported regarding the dermatologic system. Musculoskeletal: No signs and/or symptoms reported regarding the musculoskeletal system. Range of motion: intact in all extremities. 14:20 Reassessment: provider at bedside at this time. tw2 15:02 Reassessment: Patient appears in no apparent distress at this time. Patient is alert, ca1 oriented x 3, equal unlabored respirations, skin warm/dry/pink. 16:09 Reassessment: Patient appears in no apparent distress at this time. Patient is alert, ca1 oriented x 3, equal unlabored respirations, skin warm/dry/pink. 17:00 Reassessment: Patient appears in no apparent distress at this time. Patient and/or ca1 family updated on plan of care and expected duration. Pain level reassessed. Patient is alert, oriented x 3, equal unlabored respirations, skin warm/dry/pink. 18:03 Reassessment: Patient appears in no apparent distress at this time. Patient is alert, ca1 oriented x 3, equal unlabored respirations, skin warm/dry/pink. Vital Signs: 13:53 BP 169 / 58; Pulse 55; Resp 16; Temp 97.8; Pulse Ox 100% on R/A; Weight 63.5 kg; Height hb 4 ft. 10 in. (147.32 cm); Pain 0/10; 14:20 BP 204 / 69; Pulse 52; Resp 17; Pulse Ox 98% on R/A; tw2 15:30 BP 227 / 74; Pulse 52; Resp 17 S; Pulse Ox 98% on R/A; ca1 16:09 BP 234 / 86; Pulse 52; Resp 17 S; Pulse Ox 98% on R/A; ca1 16:33 BP 214 / 75; Pulse 52; Resp 18 S; Pulse Ox 98% on R/A; ca1 17:00 BP 213 / 72; Pulse 51; Resp 17 S; Pulse Ox 99% on R/A; ca1 17:30 BP 197 / 64; Pulse 51; Resp 16 S; Pulse Ox 98% on R/A; ca1 18:03 BP 198 / 61; Pulse 53; Resp 17 S; Pulse Ox 97% on R/A; ca1 13:53 Body Mass Index 29.26 (63.50 kg, 147.32 cm) hb ED Course: 13:34 Patient arrived in ED. mr 13:35 Anthony Torres MD is Private Physician. mr 13:53 Triage completed. hb 13:53 Arm band placed on. hb 13:57 Bed in low position. Call light in reach. tw2 14:08 Clarke Mitchell MD is Attending Physician. rn 14:42 EKG done, by veterinary technician instructor. reviewed by Clarke Mitchell MD. sm3 14:44 Carrie Mata, EMILY is Primary Nurse. ca1 14:55 Initial lab(s) drawn, by me, sent to lab. Missed attempt(s): 20 gauge in right bb antecubital area. Inserted saline lock: 20 gauge in right antecubital area, using aseptic technique. Blood collected. 18:01 Anthony Torres MD is Referral Physician. rn 18:12 No provider procedures requiring assistance completed. IV discontinued, intact, ca1 bleeding controlled, No redness/swelling at site. Pressure dressing applied. Administered Medications: 16:09 Drug: cloNIDine 0.1 mg Route: PO; ca1 17:25 Follow up: Response: No adverse reaction; Blood pressure is unchanged ca1 17:30 Drug: hydrALAZINE 5 mg Route: IV; Rate: calculated rate; Site: right antecubital; ca1 18:00 Follow up: Response: No adverse reaction; Blood pressure is lowered; IV Status: ca1 Completed infusion Outcome: 18:02 Discharge ordered by . rn 18:12 Discharged to home via wheelchair, with family. ca1 18:12 Condition: stable 18:12 Discharge instructions given to patient, family, Instructed on discharge instructions, follow up and referral plans. Demonstrated understanding of instructions, follow-up care. 18:14 Patient left the ED. ca1 Signatures: Marylu Boyle mr CarolinJessica, RN RN bb Clarke Mitchell MD MD rn Baxter, Heather, RN RN Marivel Minor RN RN 2 Rosio Clay 3 Carrie Mata RN RN ca1 Corrections: (The following items were deleted from the chart) 15:41 13:52 Acuity: APRYL 4 hb hb 16:34 16:09 BP 134 / 86; Pulse 52bpm; Resp 17bpm; Spontaneous; Pulse Ox 98% RA; ca1 ca1
--- NOTE | 2019-01-14 18:03 | EDPHYS ---
Physician Documentation [facility] Name: Tika Guadalupe Age: 78 yrs Sex: Female : 1940 Arrival Date: 01/14/2019 Time: 13:34 Bed 20 Private MD: Anthony Torres C ED Physician Clarke Mitchell HPI: 01/14 17:33 This 78 yrs old Female presents to ER via Ambulatory with complaints of High rn Blood Pressure. 17:33 The patient has elevated blood pressure and discovered this at home. Onset: The rn symptoms/episode began/occurred at an unknown time. Modifying factors:. Associated signs and symptoms: The patient has no apparent associated signs or symptoms, Pertinent negatives: chest pain, dizziness, headache, lightheadedness, nausea, visual changes, vomiting, weakness. Severity of symptoms: At its worst the blood pressure was moderate, in the emergency department the blood pressure is unchanged. The patient has experienced similar episodes in the past. Caregiver states BP has been getting really high in morning, gives meds, and comes down, did not come down today. Patient denies symptoms, no headache/focal neuro complaint/chest pain/sob/abd pain/vomiting/diaphoresis. . Historical: - Allergies: 13:56 No Known Allergies; hb - Home Meds: 13:56 carvedilol 12.5 mg Oral tab 1 tab 2 times per day [Active]; clonidine HCl 0.1 mg Oral hb tab 1 tab 2 times per day [Active]; hydralazine 50 mg oral tab 2 times per day [Active]; Janumet 50-500 mg Oral tab 1 tab 2 times per day [Active]; losartan 100 mg Oral tab 1 tab once daily [Active]; lovastatin 10 mg Oral tab 1 tab once daily [Active]; nifedipine 60 mg oral tr24 once daily [Active]; aspirin 81 mg Oral chew [Active]; - PMHx: 13:56 Diabetes - NIDDM; Hypertension; hb - PSHx: 13:56 left masectomy; colon surgery; Appendectomy; Cholecystectomy; hb - Immunization history:: Adult Immunizations up to date. - Social history:: Smoking status: Patient/guardian denies using tobacco. - Ebola Screening: : No symptoms or risks identified at this time. - Family history:: not pertinent. - Hospitalizations: : No recent hospitalization is reported. ROS: 17:33 Constitutional: Negative for fever, chills, and weight loss, Eyes: Negative for injury, rn pain, redness, and discharge, Neck: Negative for injury, pain, and swelling, Cardiovascular: Negative for chest pain, palpitations, and edema, Respiratory: Negative for shortness of breath, cough, wheezing, and pleuritic chest pain, Abdomen/GI: Negative for abdominal pain, nausea, vomiting, diarrhea, and constipation, Back: Negative for injury and pain, MS/Extremity: Negative for injury and deformity, Skin: Negative for injury, rash, and discoloration, Neuro: Negative for headache, weakness, numbness, tingling, and seizure. Exam: 17:33 Constitutional: This is a well developed, well nourished patient who is awake, alert, rn and in no acute distress. Head/Face: Normocephalic, atraumatic. Cardiovascular: Regular rate and rhythm. No pulse deficits. Loud systolic murmur Respiratory: No increased work of breathing, no retractions or nasal flaring. Abdomen/GI: soft, non-tender Skin: Warm, dry with normal turgor. Normal color with no rashes, no lesions, and no evidence of cellulitis. MS/ Extremity: Pulses equal, no cyanosis. Neurovascular intact. Full, normal range of motion. Equal circumference. Neuro: Awake and alert, GCS 15, oriented to person, place, time, and situation. Cranial nerves II-XII grossly intact. Motor strength 5/5 in all extremities. Sensory grossly intact. Vital Signs: 13:53 BP 169 / 58; Pulse 55; Resp 16; Temp 97.8; Pulse Ox 100% on R/A; Weight 63.5 kg; Height hb 4 ft. 10 in. (147.32 cm); Pain 0/10; 14:20 BP 204 / 69; Pulse 52; Resp 17; Pulse Ox 98% on R/A; tw2 15:30 BP 227 / 74; Pulse 52; Resp 17 S; Pulse Ox 98% on R/A; ca1 16:09 BP 234 / 86; Pulse 52; Resp 17 S; Pulse Ox 98% on R/A; ca1 16:33 BP 214 / 75; Pulse 52; Resp 18 S; Pulse Ox 98% on R/A; ca1 17:00 BP 213 / 72; Pulse 51; Resp 17 S; Pulse Ox 99% on R/A; ca1 17:30 BP 197 / 64; Pulse 51; Resp 16 S; Pulse Ox 98% on R/A; ca1 18:03 BP 198 / 61; Pulse 53; Resp 17 S; Pulse Ox 97% on R/A; ca1 13:53 Body Mass Index 29.26 (63.50 kg, 147.32 cm) hb MDM: 14:08 Patient medically screened. rn 17:50 Differential diagnosis: Malignant HTN. Data reviewed: vital signs, nurses notes, excavation laborer test result(s), EKG, and as a result, I will discharge patient. Counseling: I had a detailed discussion with the patient and/or guardian regarding: the historical points, exam findings, and any diagnostic results supporting the discharge/admit diagnosis, lab results, the need for outpatient follow up, to return to the emergency department if symptoms worsen or persist or if there are any questions or concerns that arise at home. Counseling: I had a detailed discussion with the patient and/or guardian regarding: the presence of at least one elevated blood pressure reading (>120/80) during this emergency department visit. Response to treatment: the patient's symptoms have mildly improved after treatment, and as a result, I will discharge patient. Special discussion: I have referred the patient to see his PCP for further evaluation of high blood pressure. I discussed with the patient/guardian in detail that at this point there is no indication for admission to the hospital. It is understood, however, that if the symptoms persist or worsen the patient needs to return immediately for re-evaluation. 01/14 14:22 Order name: CBC with Diff; Complete Time: 15:44 rn 01/14 14:22 Order name: Basic Metabolic Panel; Complete Time: 15:44 rn 01/14 14:22 Order name: IV Start; Complete Time: 14:54 rn 01/14 14:22 Order name: EKG; Complete Time: 14:23 rn 01/14 14:22 Order name: EKG - Nurse/Tech; Complete Time: 14:23 rn Administered Medications: 16:09 Drug: cloNIDine 0.1 mg Route: PO; ca1 17:25 Follow up: Response: No adverse reaction; Blood pressure is unchanged ca1 17:30 Drug: hydrALAZINE 5 mg Route: IV; Rate: calculated rate; Site: right antecubital; ca1 18:00 Follow up: Response: No adverse reaction; Blood pressure is lowered; IV Status: ca1 Completed infusion Disposition: 01/14/19 18:02 Discharged to Home. Impression: Hypertension. - Condition is Stable. - Discharge Instructions: Hypertension, Managing Your Hypertension. - Medication Reconciliation Form, Thank You Letter, Antibiotic Education, Prescription Opioid Use form. - Follow up: Anthony Torres MD; When: As needed; Reason: Recheck today's complaints, Re-evaluation by your physician. - Problem is an ongoing problem. - Symptoms have improved. Signatures: Dispatcher [employer] EDMS Clarke Mitchell MD MD rn Baxter, Heather, RN RN Acob, EMILY Butler RN ca1 Corrections: (The following items were deleted from the chart) 18:02 17:33 Constitutional: This is a well developed, well nourished patient who is awake, rn alert, and in no acute distress. Head/Face: Normocephalic, atraumatic. Cardiovascular: Regular rate and rhythm. No pulse deficits. Respiratory: No increased work of breathing, no retractions or nasal flaring. Abdomen/GI: soft, non-tender Skin: Warm, dry with normal turgor. Normal color with no rashes, no lesions, and no evidence of cellulitis. MS/ Extremity: Pulses equal, no cyanosis. Neurovascular intact. Full, normal range of motion. Equal circumference. Neuro: Awake and alert, GCS 15, oriented to person, place, time, and situation. Cranial nerves II-XII grossly intact. Motor strength 5/5 in all extremities. Sensory grossly intact. rn 18:14 18:02 01/14/2019 18:02 Discharged to Home. Impression: Hypertension. Condition is ca1 Stable. Forms are Medication Reconciliation Form, Thank You Letter, Antibiotic Education, Prescription Opioid Use. Follow up: Anthony Torres; When: As needed; Reason: Recheck today's complaints, Re-evaluation by your physician. Problem is an ongoing problem. Symptoms have improved. rn
--- NOTE | 2019-01-15 07:25 | EKG ---
Test Date: 2019-01-14 Test Time: 14:22:33 Baseboard Heating Installer: NENA MEASUREMENT RESULTS: Intervals: Rate: 53 KS: 228 QRSD: 78 QT: 482 QTc: 452 [place]: P: 77 KS: 228 QRS: 55 T: 59 INTERPRETIVE STATEMENTS: Sinus bradycardia with 1st degree AV block Otherwise normal ECG Compared to ECG 01/01/2017 14:38:30 First degree AV block now present ST (T wave) deviation no longer present Electronically Signed On 01-15-19 07:23:46 [employer] by Mani Georges
== END 2019-01-14 18:14 | disposition home or self-care (01) ==
LOC: ER 13:31
DX: I10 Essential (primary) hypertension (principal); E11.9 Type 2 diabetes mellitus without complications
CPT/HCPCS: 96365; 93005; 85025; 80048; 36415; 99284; J0360

== ENCOUNTER 2019-07-03 18:01 | Observation (INO) | payer OTHER ==
--- OUTSIDE RECORDS SUMMARY | 2019-07-03 18:06 | XMS REPORT | Clinical Summary ---
:1940 Author Organization [facility] Address [address] [place] [address] Care Team Providers Name Role Phone Danni Torres MD Primary Care Provider Allergies No Known Allergies Medications Medication Sig Dispensed Refills Start Date End Date Status hydrALAZINE Take 25 mg by mouth 0 Active (APRESOLINE) 25 MG 2 (two) times a tablet day. carvedilol (COREG) Take 12.5 mg by 0 Active 12.5 MG tablet mouth 2 (two) times a day with meals. NIFEdipine XL Take 30 mg by mouth 0 Active (PROCARDIA XL) 30 MG 2 (two) times a 24 hr tablet day. lovastatin (MEVACOR) Take 10 mg by mouth 0 Active 10 MG tablet nightly. bimatoprost (LUMIGAN) Administer 1 drop 0 Active 0.01 % ophthalmic to both eyes drops nightly. sitaGLIPtin-metformin Take 1 tablet by 0 Active (JANUMET XR) mouth daily. 100-1,000 mg tablet, ER multiphase 24 hr Active Problems No known active problems Family History Medical History Relation Name Comments No Known Problems Father Diabetes Mother Relation Name Status Comments Father Mother Social History Tobacco Use Types Packs/Day Years Used Date Former Smoker Cigarettes 0.5 10 Smokeless Tobacco: Never Used Alcohol Use Drinks/Week oz/Week Comments No Sex Assigned at Date Recorded Not on file Job Start Date Occupation Industry Not on file Not on file Not on file Travel History Travel Start Travel End No recent travel history available. Last Filed Vital Signs Not on file Plan of Treatment Health Maintenance Due Date Last Done Comments SHINGLES VACCINES (#1) 10/07/1991 65+ PNEUMOCOCCAL VACCINE (1 of 2 - PCV13) 2006 INFLUENZA VACCINE 09/27/2019 Implants Implanted Type Area Cabinet And Trim Installer Device Shelf Model / Identifier Expiration Serial / Lot Date Lens Iol Asprc Asymet Bicnvx Ant +26.0d 0deg 6x13mm - [id number] - [id number] Intraocular Left: BARTOLOME 04/26/2019 [id number] / Implanted: Qty: 1 on 10/09/2016 by Abram Van MD at [facility] [employer] [id number] / [id number] Results Not on fileafter 07/02/2018 ([facility]) [place] [address] Advance Directives For more information, please contact: [phone] Type Date Recorded Patient Director Experimental Medicine Explanati on Advance Directives, Living Will 2016 3:48 PM and Medical Power of Medical Insurance Clerk
[2019-07-03 18:49] LABS: Absolute Lymphocytes (CBC) 1.6 K/uL (0.7-4.9); Basophils % 0.6 % (0-1.3); Hematocrit 29.9 % (36.0-45.0); MPV 9.5 fL (7.6-11.3); RBC Red Blood Cell Count 3.35 M/uL (3.86-4.86)
[2019-07-03 18:51] LABS: Protime INR 0.98
[2019-07-03] MEDS ORDERED: MORPHINE 2 MG/ML SYR ONE (18:58)
[2019-07-03] MEDS ORDERED: ONDANSETRON 4 MG/2 ML VIAL ONE (18:58)
[2019-07-03] MEDS ORDERED: FAMOTIDINE 20 MG/2 ML VIAL IV ONE (18:58)
[2019-07-03 19:03] LABS: ALT/SGPT 17 U/L (12-78); AST/SGOT 16 U/L (15-37); Albumin 3.7 g/dL (3.4-5.0); Alkaline Phosphatase 86 U/L (45-117); BUN Blood Urea Nitrogen 37 mg/dL (7-18); Bicarbonate 27 mmol/L (21-32); Bilirubin Direct < 0.1 mg/dL (0-0.2); Bilirubin Total 0.2 mg/dL (0.2-1.0); Glucose Level 282 mg/dL (74-106); Magnesium 2.4 mg/dL (1.8-2.4); NT PRO-BNP 736 pg/mL (<450); Potassium 4.8 mmol/L (3.5-5.1); Protein, Total 7.1 g/dL (6.4-8.2); Sodium Level 139 mmol/L (136-145); Troponin (Emerg Dept Use Only) < 0.02 ng/mL (0.0-0.045)
--- NOTE | 2019-07-03 19:30 | RAD REPORT ---
EXAM DESCRIPTION: RAD - Chest Single View - 07/03/2019 7:12 pm CLINICAL HISTORY: CHEST PAIN COMPARISON: December 2016 TECHNIQUE: AP portable chest image was obtained 07/03/2019 7:12 pm . FINDINGS: No focal lung parenchymal process. No failure or volume overload. Interstitial pattern mat ches comparison. Heart and vasculature are normal. No measurable pleural effusion and no pneumothorax . No acute bony abnormality seen. No acute aortic findings suspected. IMPRESSION: No acute cardiopulmonary process. No significant interval change.
--- NOTE | 2019-07-03 19:53 | RAD REPORT ---
EXAM DESCRIPTION: CT - Angio Aorta For Dissection - 07/03/2019 7:33 pm CLINICAL HISTORY: CHEST PAIN COMPARISON: Portable chest July 02 TECHNIQUE: Dynamically enhanced 3 mm thick images of the chest, abdomen, and upper pelvis were obtai patricia during administration of approximately 150mL Isovue 370 IV contrast. Sagittal and coronal reconst ruction images were generated using MIP and reviewed. Exam utilizes a protocol to evaluate entire cou rse of the aorta. All CT scans are performed using dose optimization technique as appropriate and may include automated exposure control or mA/KV adjustment according to patient size. FINDINGS: Aorta is normal in diameter with no dissection or other acute aortic findings. Aortic calc ifications are present not unusual for age. No displaced calcifications. Aortic arch is 3 vessel with no great vessel origin stenosis. Vertebral artery origins unremarkable as well. Reconstruction image s show no significant findings. Pulmonary arteries are normal as well. No cardiomegaly, pericardial thickening or pericardial effusio n. No mass or infiltrate in the lung parenchyma. No pleural thickening, pleural effusion or pneumothorax . No abnormal mediastinal or hilar mass or lymphadenopathy seen. No chest wall mass or abnormal axillar y lymphadenopathy. Celiac, SMA and renal arteries show no suspicious findings. Prominent calcifications are present in t he mesenteric vasculature without significant stenosis identifiable. No suspicious findings in the so lid abdominal viscera, gallbladder or biliary tree. No acute large or small bowel finding. Moderate s tool volume present the colon. Fluid-filled stomach is present. Dilated distal esophagus is present a nd fluid filled. Patient likely has reflux. Patulous gastroesophageal junction suspected. No esophage al mass lesion. No mass or bulky lymphadenopathy. Urinary bladder shows no suspicious findings. Numerous calcificati ons are present in the uterus. No free air, free fluid or inflammatory stranding. No urinary bladder abnormality. Disc and bony degenerative changes are present. IMPRESSION: Negative CT scan of the aorta for acute finding. No acute CT chest finding. Distended fluid-filled stomach with dilated fluid-filled distal esophagus. No obstructing mass. No other significant findings on chest, abdomen and upper pelvis examination.
--- NOTE | 2019-07-03 20:27 | EDPHYS ---
Physician Documentation [facility] Name: Tika Guadalupe Age: 78 yrs Sex: Female : 1940 Arrival Date: 07/03/2019 Time: 18:06 Bed 3 Private MD: ED Physician Clarke Mitchell HPI: 07/02 18:40 This 78 yrs old Female presents to ER via Wheelchair with complaints of Chest cp Pain. 18:40 The patient or guardian reports chest pain that is located primarily in the anterior cp chest wall, left. 18:40 Onset: today, at 16:00. Associated signs and symptoms: Pertinent negatives: abdominal cp pain, cough, syncope, vomiting. The chest pain is described as a pressure. Duration: The patient or guardian reports a single episode, that is still ongoing, and worsening. Historical: - Allergies: 18:25 No Known Allergies; iw - Home Meds: 18:25 aspirin 81 mg Oral chew [Active]; carvedilol 12.5 mg Oral tab 1 tab 2 times per day iw [Active]; clonidine HCl 0.1 mg Oral tab 1 tab 2 times per day [Active]; hydralazine 50 mg Oral tab 2 times per day [Active]; Janumet 50-500 mg Oral tab 1 tab 2 times per day [Active]; lovastatin 10 mg Oral tab 1 tab once daily [Active]; nifedipine 60 mg Oral tr24 once daily [Active]; - PMHx: 18:25 Diabetes - NIDDM; Hypertension; Cancer, Breast; colon cancer; iw - PSHx: 18:25 Mastectomy, Left; colon surgery; Appendectomy; Cholecystectomy; iw - Immunization history:: Adult Immunizations up to date. - Social history:: Smoking status: Patient denies any tobacco usage or history of. Patient/guardian denies using alcohol, street drugs. ROS: 18:50 Constitutional: Negative for body aches, chills, fever, poor PO intake. cp 18:50 Eyes: Negative for injury, pain, redness, and discharge. cp 18:50 ENT: Negative for ear pain, sore throat, difficulty swallowing, difficulty handling secretions. 18:50 Cardiovascular: Positive for chest pain, Negative for edema, palpitations. 18:50 Respiratory: Negative for cough, wheezing. 18:50 Abdomen/GI: Negative for abdominal pain, nausea, vomiting, and diarrhea. 18:50 Back: Positive for radiated pain. 18:50 Skin: Negative for rash. 18:50 Neuro: Negative for altered mental status, headache, syncope, weakness. 18:50 All other systems are negative. Exam: 18:55 Constitutional: The patient appears in no acute distress, alert, awake, cp non-diaphoretic, non-toxic, well developed, well nourished. 18:55 Head/Face: Normocephalic, atraumatic. cp 18:55 Eyes: Periorbital structures: appear normal, Conjunctiva: normal, no exudate, no injection, Sclera: no appreciated abnormality, Lids and lashes: appear normal, bilaterally. 18:55 ENT: External ear(s): are unremarkable, Nose: is normal, Mouth: Lips: moist, Oral mucosa: moist, Posterior pharynx: is normal, airway is patent. 18:55 Neck: ROM/movement: is normal, is supple, without pain, no range of motions limitations, no nuchal rigidity. 18:55 Chest/axilla: Inspection: normal, Palpation: is normal, no crepitus, no tenderness. 18:55 Cardiovascular: Rate: normal, Rhythm: regular, Edema: is not appreciated, JVD: is not appreciated. 18:55 Respiratory: the patient does not display signs of respiratory distress, Respirations: normal, no use of accessory muscles, no retractions, labored breathing, is not present, Breath sounds: are clear throughout, no decreased breath sounds, no stridor, no wheezing. 18:55 Abdomen/GI: Inspection: abdomen appears normal, Bowel sounds: active, all quadrants, Palpation: soft, in all quadrants, mild abdominal tenderness, in the epigastric area, rebound tenderness, is not appreciated, involuntary guarding, is not appreciated. 18:55 Skin: no rash present. 18:55 Neuro: Orientation: to person, place \T\ time. Mentation: is normal. Vital Signs: 18:30 BP 156 / 65; Pulse 62; Resp 16; Temp 97.8(TE); Pulse Ox 99% on R/A; iw 19:00 BP 160 / 56; Pulse 58; Resp 15; Pulse Ox 96% on R/A; ls4 20:00 BP 159 / 75; Pulse 73; Resp 13; Pulse Ox 99% on R/A; ls4 20:29 BP 156 / 59; Pulse 61; Resp 11; Pulse Ox 99% on R/A; ls4 22:32 BP 148 / 62; Pulse 62; Resp 11; Pulse Ox 99% on R/A; Pain 0/10; ls4 MDM: 18:42 Patient medically screened. cp 19:00 Differential diagnosis: abnormal EKG, acute myocardial infarction, pneumonia, cp pneumothorax, pulmonary embolus, stable angina, thoracic aortic disection, unstable angina. 20:10 Data reviewed: vital signs, nurses notes, lab test result(s), EKG, radiologic studies, cp CT scan, plain films. 20:10 Counseling: I had a detailed discussion with the patient and/or guardian regarding: the cp historical points, exam findings, and any diagnostic results supporting the discharge/admit diagnosis, lab results, radiology results, the need for further work-up and treatment in the hospital. Response to treatment: the patient's symptoms have markedly improved after treatment. 20:25 The patient was given aspirin in the Emergency Department. cp 20:25 Physician consultation: Quincy Sandoval MD was contacted at 20:20, regarding admission, cp to the telemetry unit. patient's condition. 07/02 18:31 Order name: Basic Metabolic Panel; Complete Time: 20: 07/02 20: Interpretation: Normal except: GLUC 282; BUN 37; CRE 1.45; GFR 35. 07/02 18:31 Order name: CBC with Diff; Complete Time: 20: 07/02 20:01 Interpretation: Normal except: RBC 3.35; HGB 10.1; HCT 29.9. 07/02 18:31 Order name: LFT's; Complete Time: 20:07/02 18:31 Order name: Magnesium; Complete Time: 20:01 07/02 18:31 Order name: NT PRO-BNP; Complete Time: 20: 07/02 20:01 Interpretation: Abnormal: NT PRO-BNP 736. 07/02 18:31 Order name: PT-INR; Complete Time: 20:01 07/02 18:31 Order name: Troponin (emerg Dept Use Only); Complete Time: 20: 07/02 20:02 Interpretation: Within normal limits: TROPED < 0.02. cp 07/02 18:31 Order name: Basic Metabolic Panel bp 07/02 18:31 Order name: CBC with Diff bp 07/02 18:31 Order name: LFT's bp 07/02 18:31 Order name: Magnesium bp 07/02 18:31 Order name: NT PRO-BNP bp 07/02 18:31 Order name: PT-INR bp 07/02 18:31 Order name: Troponin (emerg Dept Use Only) bp 07/02 18:31 Order name: XRAY Chest (1 view); Complete Time: 20:01 iw 07/02 20:02 Interpretation: Report review. cp 07/02 18:31 Order name: EKG; Complete Time: 18:32 iw 07/02 18:43 Order name: Lipase; Complete Time: 20:01 cp 07/02 18:44 Order name: CT Aorta for Dissection; Complete Time: 20:01 cp 07/02 20:52 Order name: Basic Metabolic Panel EDMS 07/02 20:52 Order name: Basic Metabolic Panel EDMS 07/02 20:52 Order name: Lipid Profile EDMS 07/02 20:52 Order name: Lipid Profile EDMS 07/02 20:53 Order name: Echo with Doppler EDMS 07/02 20:53 Order name: Troponin I EDMS 07/02 18:31 Order name: Cardiac monitoring; Complete Time: 18:35 iw 07/02 18:31 Order name: EKG - Nurse/Tech; Complete Time: 18:35 iw 07/02 18:31 Order name: IV Saline Lock; Complete Time: 18:35 iw 07/02 18:31 Order name: Labs collected and sent; Complete Time: 18:36 iw 07/02 18:31 Order name: O2 Per Protocol; Complete Time: 18:36 iw 07/02 18:31 Order name: O2 Sat Monitoring; Complete Time: 18:35 iw 07/02 18:31 Order name: EKG; Complete Time: 18:33 bp 07/02 18:31 Order name: Cardiac monitoring; Complete Time: 18:33 bp 07/02 18:31 Order name: EKG - Nurse/Tech; Complete Time: 18:32 bp 07/02 18:31 Order name: IV Saline Lock; Complete Time: 18:35 bp 07/02 18:31 Order name: Labs collected and sent; Complete Time: 18:35 bp 07/02 18:31 Order name: O2 Per Protocol; Complete Time: 18:35 bp 07/02 18:31 Order name: O2 Sat Monitoring; Complete Time: 18:35 bp 07/02 20:53 Order name: CONS Physician Consult EDRI 07/02 20:53 Order name: EKG Electrocardiogram EDMS 07/02 20:53 Order name: EKG Electrocardiogram EDMS Administered Medications: 18:57 Drug: morphine 2 mg Route: IVP; Site: right forearm; bp 18:58 Drug: Zofran (Ondansetron) 4 mg Route: IVP; Site: right forearm; bp 18:58 Drug: Pepcid 20 mg Route: IVP; Site: right forearm; bp 20:30 Drug: Aspirin Chewable Tablet 324 mg Route: PO; ls4 22:33 Follow up: Response: No adverse reaction; Marked relief of symptoms ls4 20:31 Drug: ProTONIX 40 mg Route: IVP; Site: right forearm; ls4 22:33 Follow up: Response: No adverse reaction; Marked relief of symptoms ls4 Disposition: 23:17 Co-signature as Attending Physician, Clarke Mitchell MD. rn Disposition: 07/03/19 20:26 Hospitalization ordered by Quincy Sandoval for Observation. Preliminary diagnosis is Chest pain, unspecified. - Bed requested for Telemetry/MedSurg (observation). - Status is Observation. rv - Condition is Stable. - Problem is new. - Symptoms have improved. Signatures: Dispatcher [employer] EDRI Soni Nelson RN RN dw Williams, Irene, RN RN iw Nieto, Roman, MD MD rn Page, Corey, PA PA cp Nehemiah Kinsey, RN EMILY bp Danny Kramer RN EMILY rv Kitty Gtuierres RN RN ls4 Corrections: (The following items were deleted from the chart) 18:37 18:33 Chest Single View+RAD.RAD.BRZ ordered. EDRI EDMS 21:45 20:26 Hospitalization Ordered by Quincy Sandoval MD for Observation. Preliminary dw diagnosis is Chest pain, unspecified. Bed requested for Telemetry/MedSurg (observation). Status is Observation. Condition is Stable. Problem is new. Symptoms have improved. cp 23:03 21:45 07/03/2019 20:26 Hospitalization Ordered by Quincy Sandoval MD for Observation. rv Preliminary diagnosis is Chest pain, unspecified. Bed requested for Telemetry/MedSurg (observation). Status is Observation. Condition is Stable. Problem is new. Symptoms have improved. dw
--- NOTE | 2019-07-03 20:27 | ER ---
Nurse's Notes [facility] Name: Tika Guadalupe Age: 78 yrs Sex: Female : 1940 Arrival Date: 07/03/2019 Time: 18:06 Bed 3 Private MD: Diagnosis: Chest pain, unspecified Presentation: 07/02 18:22 Chief complaint: Patient's son or daughter states: left sided chest pain started about iw 4 pm today, also reports mild SOB, no cough or fever. Coronavirus screen: Proceed with normal triage. Patient denies a cough. Patient reports shortness of breath or difficulty breathing. Patient denies measured and/or subjective temperature greater than 100.4F prior to today's visit. Patient denies travel on a cruise ship or to a country the [facility] currently lists as an affected area. Patient denies contact with known and/or suspected case of COVID-19. Ebola Screen: Patient negative for fever greater than or equal to 101.5 degrees Fahrenheit, and additional compatible Ebola Virus Disease symptoms Patient denies exposure to infectious person. Patient denies travel to an Ebola-affected area in the 21 days before illness onset. No symptoms or risks identified at this time. Initial Sepsis Screen: Does the patient meet any 2 criteria? No. Patient's initial sepsis screen is negative. Does the patient have a suspected source of infection? No. Patient's initial sepsis screen is negative. Risk Assessment: Do you want to hurt yourself or someone else? Patient reports no desire to harm self or others. Onset of symptoms was July 03, 2019. 18:22 Method Of Arrival: Wheelchair iw 18:22 Acuity: APRYL 3 iw Triage Assessment: 18:42 General: Appears in no apparent distress. uncomfortable, Behavior is calm, cooperative. ls4 Pain: Complains of pain in anterior aspect of left upper chest Pain currently is 5 out of 10 on a pain scale. at worst was 10 out of 10 on a pain scale. Quality of pain is described as crushing, pressure, squeezing, Pain began 2 hours ago. Neuro: Level of Consciousness is awake, alert, obeys commands, Oriented to person, place, time, situation, DAUGHTER STATES SHE HAS BEGINNING STAGE OF DEMENTIA. . Cardiovascular: Capillary refill < 3 seconds Clubbing of nail beds is absent Patient's skin is warm and dry. Rhythm is regular Chest pain is described as severe, is located in left anterior began suddenly, 3 hours prior to arrival episodes. Respiratory: Airway is patent Respiratory effort is even, unlabored, Respiratory pattern is regular. GI: No deficits noted. No signs and/or symptoms were reported involving the gastrointestinal system. : No deficits noted. No signs and/or symptoms were reported regarding the genitourinary system. Derm: No deficits noted. No signs and/or symptoms reported regarding the dermatologic system. Musculoskeletal: No deficits noted. No signs and/or symptoms reported regarding the musculoskeletal system. Historical: - Allergies: 18:25 No Known Allergies; iw - Home Meds: 18:25 aspirin 81 mg Oral chew [Active]; carvedilol 12.5 mg Oral tab 1 tab 2 times per day iw [Active]; clonidine HCl 0.1 mg Oral tab 1 tab 2 times per day [Active]; hydralazine 50 mg Oral tab 2 times per day [Active]; Janumet 50-500 mg Oral tab 1 tab 2 times per day [Active]; lovastatin 10 mg Oral tab 1 tab once daily [Active]; nifedipine 60 mg Oral tr24 once daily [Active]; - PMHx: 18:25 Diabetes - NIDDM; Hypertension; Cancer, Breast; colon cancer; iw - PSHx: 18:25 Mastectomy, Left; colon surgery; Appendectomy; Cholecystectomy; iw - Immunization history:: Adult Immunizations up to date. - Social history:: Smoking status: Patient denies any tobacco usage or history of. Patient/guardian denies using alcohol, street drugs. Screenin:58 Abuse screen: Denies threats or abuse. Denies injuries from another. Nutritional ls4 screening: No deficits noted. Tuberculosis screening: No symptoms or risk factors identified. Fall Risk No fall in past 12 months (0 pts). Secondary diagnosis (15 points) IV access (20 points). Ambulatory Aid- None/Bed Rest/Nurse Assist (0 pts). Gait- Weak (10 pts.). Mental Status- Oriented to own ability (0 pts). Total Cummings Fall Scale indicates High Risk Score (45 or more points). Fall prevention measures have been instituted. Side Rails Up X 2 Placed Close to Nursing Station Frequent Obs/Assessments Occuring As available patient and family educated on Fall Prevention Program and Strategies. Assessment: 18:45 Also complains of nausea. Pain: Pain does not radiate. ls4 22:30 Pain: Denies pain. ls4 Vital Signs: 18:30 BP 156 / 65; Pulse 62; Resp 16; Temp 97.8(TE); Pulse Ox 99% on R/A; iw 19:00 BP 160 / 56; Pulse 58; Resp 15; Pulse Ox 96% on R/A; ls4 20:00 BP 159 / 75; Pulse 73; Resp 13; Pulse Ox 99% on R/A; ls4 20:29 BP 156 / 59; Pulse 61; Resp 11; Pulse Ox 99% on R/A; ls4 22:32 BP 148 / 62; Pulse 62; Resp 11; Pulse Ox 99% on R/A; Pain 0/10; ls4 ED Course: 18:06 Patient arrived in ED. ag5 18:12 Patient has correct armband on for positive identification. Bed in low position. Call ls4 light in reach. Side rails up X 1. school lunch monitor on. Pulse ox on. NIBP on. 18:12 Warm blanket given. Pillow given. Verbal reassurance given. Diet: Patient is NPO. ls4 18:12 No provider procedures requiring assistance completed. Patient maintains SpO2 ls4 saturation greater than 95% on room air. 18:23 Triage completed. iw 18:30 Arm band placed on. iw 18:30 Inserted saline lock: 20 gauge in right forearm, using aseptic technique. Blood bp collected. 18:37 Marcin Burt PA is PHCP. cp 18:37 Venancio Norris MD is Attending Physician. cp 18:42 Kitty Gutierres RN is Primary Nurse. ls4 18:58 Lipase Sent. kj1 19:12 XRAY Chest (1 view) In Process Unspecified. EDMS 19:26 Clarke Mitchell MD is Attending Physician. cp 19:34 CT Aorta for Dissection In Process Unspecified. EDMS 20:26 Quincy Sandoval MD is Hospitalizing Provider. cp 22:32 Patient admitted, IV remains in place. ls4 Administered Medications: 18:57 Drug: morphine 2 mg Route: IVP; Site: right forearm; bp 18:58 Drug: Zofran (Ondansetron) 4 mg Route: IVP; Site: right forearm; bp 18:58 Drug: Pepcid 20 mg Route: IVP; Site: right forearm; bp 20:30 Drug: Aspirin Chewable Tablet 324 mg Route: PO; ls4 22:33 Follow up: Response: No adverse reaction; Marked relief of symptoms ls4 20:31 Drug: ProTONIX 40 mg Route: IVP; Site: right forearm; ls4 22:33 Follow up: Response: No adverse reaction; Marked relief of symptoms ls4 Outcome: 20:26 Decision to Hospitalize by Provider. cp 22:30 Admitted to Med/surg accompanied by tech, room 209, with chart, Report called to ian gil rn 22:31 Condition: stable ls4 22:31 Instructed on the need for admit. 23:03 Patient left the ED. rv Signatures: Dispatcher [employer] EDMS Madina Cash, RN RN iw Marcin Burt PA PA cp Nehemiah Kinsey RN RN bp Danny Kramer RN RN rv Kitty Gutierres RN RN ls4 Tal Wade ag5 Analy Delarosa kj1 Corrections: (The following items were deleted from the chart) 18:32 18:30 BP 156 / 65; Pulse 62bpm; Resp 16bpm; Pulse Ox 99% RA; iw iw 22:32 22:30 Admitted to Med/surg accompanied by tech, room 206, ls4 ls4
[2019-07-03] MEDS ORDERED: PANTOPRAZOLE 40 MG INJ ONE (20:49)
[2019-07-03] MEDS ORDERED: ACETAMINOPHEN 500 MG TAB PO PRN (20:49)
[2019-07-03] MEDS ORDERED: ALPRAZOLAM 0.25 MG TABLET PO PRN (20:49)
[2019-07-03] MEDS ORDERED: MORPHINE 4 MG/ML SYR IV PRN (20:49)
[2019-07-03] MEDS ORDERED: ASPIRIN 81 MG CHEWABLE TABLET ONE (20:50)
[2019-07-03 23:10] VITALS: BMI 25.4
[2019-07-03] MEDS: METOPROLOL TAR 50 MG TAB PO SCH (23:15)
[2019-07-04 05:10] LABS: Absolute Lymphocytes (CBC) 1.7 K/uL (0.7-4.9); Basophils % 0.5 % (0-1.3); Lymphocytes % 30.9 % (15.3-44.8); MPV 9.8 fL (7.6-11.3); RBC Red Blood Cell Count 3.14 M/uL (3.86-4.86)
[2019-07-04 05:27] LABS: BUN Blood Urea Nitrogen 28 mg/dL (7-18); Bicarbonate 26 mmol/L (21-32); Glucose Level 122 mg/dL (74-106); HDL Cholesterol 67 mg/dL (40-60); LDL Cholesterol, Calculated 63 (<130); Potassium 4.5 mmol/L (3.5-5.1); Sodium Level 140 mmol/L (136-145); Troponin I < 0.02 ng/mL (0.0-0.045)
--- NOTE | 2019-07-04 05:31 | P.HP ---
Certification for Inpatient Patient admitted to: Observation With expected LOS: <2 Midnights Patient will require the following post-hospital care: None Practitioner: I am a practitioner with admitting privileges, knowledge of patient current condition, hospital course, and medical plan of care. Services: Services provided to patient in accordance with Admission requirements found in Title 42 Section 412.3 of the Code of Federal Regulations Patient History Date of Service: 07/03/19 Reason for admission: Chest pain rule out acute coronary syndrome History of Present Illness: Patient is a 78-year-old female who lives at home with her daughter who presents to the hospital with chest discomfort. Pain was mainly in the sternal region. Patient's pain radiates the left side. She has some shortness of breath as well. The pain started today at 4:00 p.m.. The pain was not subsiding so the family brought her into the hospital. In the emergency room her initial troponins and EKG have been unremarkable. Patient does have multiple comorbidities including hypertension and diabetes and patient has had a history of colon and breast cancer. At this time, patient be admitted to the hospital for further evaluation. Allergies No Known Allergies Allergy (Verified 01/01/13 03:28) Home Medications: Carvedilol [Coreg] 1 tab PO BID 07/11/17 Hydralazine [Apresoline*] 2 tab PO BID 07/11/17 Lovastatin 10 mg PO DAILY AT SUPPER 07/11/17 cloNIDine HCL [Catapres*] 1 tab PO BID 07/11/17 Aspirin Chewable [Aspirin Chewable*] 1 tab PO DAILY 07/04/19 Bimatoprost [Lumigan Opthalmic Drops*] 1 drop OPTH BEDTIME 07/04/19 Nifedipine Xl [Procardia XL*] 60 mg PO DAILY 07/04/19 - Past Medical/Surgical History Has patient received pneumonia vaccine in the past: No Diabetic: Yes -: HTN -: DM -: Breast CA -: Hyperlipidemia -: gerd -: oestoarthirtis -: colon CA -: dementia -: LEFT MASTECTOMY -: COLON SX -: APPY -: PARTIAL HYSTERECTOMY -: Chris cataract sx - Family History Father Medical History: Hypertension, Diabetes Notes: Mother Medical History: Hypertension, Diabetes - Social History Smoking Status: Never smoker Alcohol use: No CD- Drugs: No Caffeine use: Yes Place of Residence: Home Review of Systems 10-point ROS is otherwise unremarkable Physical Examination - Vital Signs Temperature: 97.4 F Blood Pressure: 162/78 Pulse: 57 Respirations: 16 Pulse Ox (%): 96 - Physical Exam General: Alert, In no apparent distress, Oriented x3 HEENT: Atraumatic, Normocephalic, Other (Patient with difficulty hearing) Neck: Supple, 2+ carotid pulse no bruit, JVD not distended, No Thyromegaly Respiratory: Clear to auscultation bilaterally, Normal air movement Cardiovascular: Regular rate/rhythm, Normal S1 S2, Systolic murmur Gastrointestinal: Soft and benign, Non-distended, Tenderness Musculoskeletal: No clubbing, No swelling Integumentary: No rashes Neurological: Normal gait, Normal speech, Normal tone, Sensation intact, Cranial nerves 3-12 intact, Normal reflexes 2+, Abnormal strength (Strength is 4/5) - Studies Laboratory Data (last 24 hrs) 07/03/19 18:30: Lipase 115 07/03/19 18:30: PT 11.6, INR 0.98 07/03/19 18:30: WBC 6.7, Hgb 10.1 L, Hct 29.9 L, Plt Count 177 07/03/19 18:30: Sodium 139, Potassium 4.8, BUN 37 H, Creatinine 1.45 H, Glucose 282 H, Magnesium 2.4, Total Bilirubin 0.2, AST 16, ALT 17, Alkaline Phosphatase 86 Assessment & Plan - Problems (Diagnosis) (1) Chest pain, rule out acute myocardial infarction Current Visit: Yes Status: Acute (2) History of colon cancer Current Visit: Yes Status: Acute (3) Breast cancer, left Onset Date: 01/02/17 Current Visit: No Status: Acute (4) Diabetes mellitus, type II Onset Date: 01/02/17 Current Visit: No Status: Acute (5) Hyperlipidemia Onset Date: 01/02/17 Current Visit: No Status: Acute (6) Hypertension, uncontrolled Onset Date: 01/02/17 Current Visit: No Status: Acute - Plan 1. Serial troponins and EKG 2. Cardiology consultation 3. Echocardiogram and stress test 4. Anti-platelet therapy, anti coagulation, beta-nakul, statin, and O2 as needed 5. IV morphine for pain 6. Nitro p.r.n. 7. If workup is negative then possible discharge home later today with family; patient may benefit from PPI for GERD or gastritis Discharge Plan: Home Plan to discharge in: 24 Hours - Advance Directives Does patient have a Living Will: No Does patient have a Durable POA for Healthcare: No - Code Status/Comfort Care Code Status Assessed: Yes Code Status: Full Code Critical Care: No Time Spent Managing PTS Care (In Minutes): 45
[2019-07-04 07:47] VITALS: O2SAT 98
[2019-07-04] MEDS ORDERED: BISACODYL E.C. 5 MG TAB PO ONE (08:24)
[2019-07-04] MEDS ORDERED: REGADENOSON 0.4 MG/5 ML SYR IV ONE (08:30)
[2019-07-04] MEDS: METOPROLOL TAR 50 MG TAB PO SCH (09:00)
[2019-07-04] MEDS ORDERED: ENOXAPARIN 30 MG/0.3 ML SQ SCH (09:00)
[2019-07-04] MEDS ORDERED: ASPIRIN EC 81 MG TAB PO SCH (09:00)
[2019-07-04] MEDS ORDERED: PNEUMOCOCCAL VACCINE 0.5 ML IMVAC ONE (09:00)
[2019-07-04] MEDS ORDERED: HYDRALAZINE HCL 25 MG TABLET PO SCH (09:00)
[2019-07-04] MEDS ORDERED: cloNIDine HCL 0.1 MG TAB PO SCH (09:00)
[2019-07-04] MEDS ORDERED: NIFEDIPINE XL 60 MG TABLET PO SCH (09:00)
--- NOTE | 2019-07-04 09:00 | P.DS ---
Discharge Date: 07/04/19 Disposition: ROUTINE DISCHARGE Discharge Condition: GOOD Reason for Admission: Chest pain rule out acute coronary syndrome Consultations: Cardiology - Problems (1) Chest pain, rule out acute myocardial infarction Current Visit: Yes Status: Acute (2) History of colon cancer Current Visit: Yes Status: Acute (3) Breast cancer, left Onset Date: 01/02/17 Current Visit: No Status: Acute (4) Diabetes mellitus, type II Onset Date: 01/02/17 Current Visit: No Status: Acute (5) Hyperlipidemia Onset Date: 01/02/17 Current Visit: No Status: Acute (6) Hypertension, uncontrolled Onset Date: 01/02/17 Current Visit: No Status: Acute Brief History of Present Illness: Patient is a 78-year-old female who lives at home with her daughter who presents to the hospital with chest discomfort. Pain was mainly in the sternal region. Patient's pain radiates the left side. She has some shortness of breath as well. The pain started today at 4:00 p.m.. The pain was not subsiding so the family brought her into the hospital. In the emergency room her initial troponins and EKG have been unremarkable. Patient does have multiple comorbidities including hypertension and diabetes and patient has had a history of colon and breast cancer. At this time, patient be admitted to the hospital for further evaluation. Hospital Course: Patient was admitted for workup. Patient's echocardiogram and stress test were performed. These did not reveal any significant abnormality. At this time, patient is doing well and is stable for discharge with outpatient follow-up with PCP and Cardiology. Patient will go home with his family at discharge. Vital Signs/Physical Exam: Temp Pulse Resp BP Pulse Ox 97.4 F 57 16 162/78 H 96 07/04/19 08:32 07/04/19 08:32 07/04/19 08:32 07/04/19 08:32 07/04/19 08:32 General: Alert, In no apparent distress, Oriented x3 Laboratory Data at Discharge: WBC 5.7 K/uL (4.3-10.9) D 07/04/19 04:49 Hgb 9.4 g/dL (12.0-15.0) L 07/04/19 04:49 Hct 28.0 % (36.0-45.0) L 07/04/19 04:49 Plt Count 156 K/uL (152-406) 07/04/19 04:49 PT 11.6 SECONDS (9.5-12.5) 07/03/19 18:30 INR 0.98 07/03/19 18:30 Sodium 140 mmol/L (136-145) 07/04/19 04:49 Potassium 4.5 mmol/L (3.5-5.1) 07/04/19 04:49 BUN 28 mg/dL (7-18) H 07/04/19 04:49 Creatinine 1.20 mg/dL (0.55-1.3) 07/04/19 04:49 Glucose 122 mg/dL (74-106) H 07/04/19 04:49 Magnesium 2.4 mg/dL (1.8-2.4) 07/03/19 18:30 Total Bilirubin 0.2 mg/dL (0.2-1.0) 07/03/19 18:30 AST 16 U/L (15-37) 07/03/19 18:30 ALT 17 U/L (12-78) 07/03/19 18:30 Alkaline Phosphatase 86 U/L (45-117) 07/03/19 18:30 Troponin I < 0.02 ng/mL (0.0-0.045) 07/04/19 04:49 Triglycerides Cancelled 07/04/19 06:00 Cholesterol Cancelled 07/04/19 06:00 HDL Cholesterol Cancelled 07/04/19 06:00 Cholesterol/HDL Ratio Cancelled 07/04/19 06:00 Lipase 115 U/L (73-393) 07/03/19 18:30 Home Medications: Carvedilol [Coreg] 1 tab PO BID 07/11/17 Hydralazine [Apresoline*] 2 tab PO BID 07/11/17 Lovastatin 10 mg PO DAILY AT SUPPER 07/11/17 cloNIDine HCL [Catapres*] 1 tab PO BID 07/11/17 Aspirin Chewable [Aspirin Chewable*] 1 tab PO DAILY 07/04/19 Bimatoprost [Lumigan Opthalmic Drops*] 1 drop OPTH BEDTIME 07/04/19 Nifedipine Xl [Procardia XL*] 60 mg PO DAILY 07/04/19 Omeprazole [Prilosec] 40 mg PO DAILY #30 capsule. 07/04/19 New Medications: Omeprazole [Prilosec] 40 mg PO DAILY #30 capsule. Patient Discharge Instructions: OK TO DC IV AND DC HOME. FOLLOW-UP WITH PRIMARY CARE PROVIDER IN 1-2 WEEKS. FOLLOW-UP WITH CARDIOLOGY IN 1-2 WEEKS. RETURN TO THE ER IF symptoms worsen. CALL or TEXT DR. TRIVEDI AT [phone] IF ANY QUESTIONS REGARDING HOSPITAL STAY. PLEASE CALL THE FLOOR AT [phone] IF ANY MEDICATION OR NURSING QUESTIONS. Diet: Diabetic diet Activity: Fall precautions
--- NOTE | 2019-07-04 10:36 | EKG ---
Test Date: 2019-07-03 Test Time: 18:20:25 Chief Investment Officer: FELICITA MEASUREMENT RESULTS: Intervals: Rate: 60 CO: 246 QRSD: 74 QT: 448 QTc: 448 [place]: P: 70 CO: 246 QRS: 45 T: 69 INTERPRETIVE STATEMENTS: Sinus rhythm with 1st degree AV block Otherwise normal ECG Compared to ECG 01/14/2019 14:22:33 Sinus bradycardia no longer present Electronically Signed On 07-04-19 10:34:47 CDT by Mani Georges
--- NOTE | 2019-07-04 11:11 | ECHO ---
HEIGHT: 4 ft 10 in WEIGHT: 122 lb 1.6 oz DATE OF STUDY: 07/04/[address]: Quincy Sandoval MD 2-DIMENSIONAL: YES M.MODE: YES DOPPLER: YES COLOR FLOW: YES TDS: PORTABLE: DEFINITY: BUBBLE STUDY: DIAGNOSIS: CHEST PAIN, RULE OUT ACUTE CORNARY SYNDROME CARDIAC HISTORY: CATHERIZATION: NO SURGERY: NO PROSTHETIC VALVE: NO PACEMAKER: NO MEASUREMENTS (cm) DIASTOLIC (NORMALS) SYSTOLIC (NORMALS) IVSd 1.0 (0.6-1.2) LA Diam 3.2 (1.9-4.0) LVEF 58% LVIDd 3.2 (3.5-5.7) LVIDs 2.2 (2.0-3.5) %FS 30% LVPWd 0.9 (0.6-1.2) Ao Diam 2.3 (2.0-3.7) 2 DIMENSIONAL ASSESSMENT: RIGHT ATRIUM: NORMAL LEFT ATRIUM: NORMAL RIGHT VENTRICLE: NORMAL LEFT VENTRICLE: NORMAL TRICUSPID VALVE: NORMAL MITRAL VALVE: MITRAL ANNULAR CALCIFICATION PULMONIC VALVE: NORMAL AORTIC VALVE: SCLEROSIS PERICARDIAL EFFUSION: NONE AORTIC ROOT: NORMAL LEFT VENTRICULAR WALL MOTION: NORMAL DOPPLER/COLOR FLOW: NORMAL COMMENTS: NORMAL LEFT VENTRICULAR SIZE AND FUNCTION. MITRAL ANNULAR CALCIFICATION. AORTIC SCLEROSIS. NO WALL MOTION ABNORMALITY. NO EFFUSION. TECHNOLOGIST: FLAKITO DURANT
--- NOTE | 2019-07-04 11:46 | RAD REPORT ---
EXAM DESCRIPTION: NM - Rest Stress Cardiac Imaging - 07/04/2019 11:35 am CLINICAL HISTORY: CP Chest pain. COMPARISON: No comparisons TECHNIQUE: The patient was administered approximately 10mCi of Tc 99m Sestamibi prior to resting SPE CT imaging of the heart. The patient was then administered approximately 30 mCi of Tc 99m Sestamibi f ollowing exercise or pharmacologic stress. Multiplanar SPECT images were reviewed. FINDINGS: No stress induced ischemic defect is seen to suggest stress induced ischemia. No fixed def ect is seen to suggest hibernating myocardium or scarred myocardium. The end diastolic volume is 67 ml, the end systolic volume is 21 ml, and the ejection fraction is 69 %. IMPRESSION: No stress induced ischemia.
--- NOTE | 2019-07-04 14:16 | TREADPHA ---
DX: CHEST PAIN Date of Study: 07/04/2019 Ht: 4' 10 " Wt: 122 lb 1.6 oz Consulting Physician: JEWELS MEDICATIONS: TYLENOL, XANAX, ASPIRIN, COREG, DULCOLAX, CATAPRES, LOVENOX HISTORY: 78 YEAR OLD FEMALE WITH HISTORY OF NON INSULIN DEPENDENT DIABETES MELLITUS, HYPERTENSION, BREAST AND COLON CANCER. ADMITTED FOR CHEST PAIN. PHYSICIAL EXAMINATION: RESTING B.P.: 166/54 RESTING H.R.: 58 RESTING EKG: SINUS BRADYCARDIA, 1ST DEGREE AV BLOCK PROTOCOL: LEXISCAN EXERCISE TIME: 3:30 B.P. AT PEAK STRESS: 117/52 IMPRESSION: LEXISCAN STRESS TEST PERFORMED. CARDIOLITE INJECTED PER PROTOCOL. NO SUPRAVENTRICULAR TACHYCARDIA, VENTRICULAR TACHYCARDIA OR ARRYTHMIAS NOTED. PATIENT DENIED CHEST PAIN. RESPIRATORY EVEN AND NON LABORED. TOLERATED WELL. SEE NUCLEAR MEDICINE REPORT.
[2019-07-04 16:18] VITALS: BP 149/67; TEMP 97.5
[2019-07-04] MEDS ORDERED: HOME MED 1 EA UNK (Lovastatin [Lovastatin] 10 MG) PO SCH (17:00)
--- NOTE | 2019-07-04 17:06 | EKG ---
Test Date: 2019-07-04 Test Time: 10:14:51 Meteorology Faculty Member: SHAHRAM MEASUREMENT RESULTS: Intervals: Rate: 68 ME: 236 QRSD: 78 QT: 432 QTc: 459 [place]: P: ME: 236 QRS: 28 T: 51 INTERPRETIVE STATEMENTS: Sinus rhythm with 1st degree AV block Otherwise normal ECG Compared to ECG 07/03/2019 18:20:25 No significant changes Electronically Signed On 07-04-19 17:04:28 CDT by Mani Georges
[2019-07-04] MEDS ORDERED: HOME MED 1 EA UNK (Bimatoprost [Lumigan Opthalmic Drops*] 1 DROP) OPTH SCH (21:00)
[2019-07-04] MEDS ORDERED: carvediloL 12.5 MG TAB PO SCH (21:00)
[2019-07-04] MEDS ORDERED: ATORVASTATIN 10 MG TAB PO SCH (21:00)
--- NOTE | 2019-07-05 06:22 | CON ---
Date of Consultation: 07/04/2019 Reason For Consultation: Chest pain. History Of Present Illness: Ms. Guadalupe is a 78-year-old woman, has a history of hypertension, dyslip idemia, diabetes, history of colon cancer and breast cancer, came in with atypical chest pain, sharp, stabbing, left-sided, nonexertional. No nausea, vomiting, diaphoresis, PND, orthopnea, pedal edema, palpitations, or syncope. By the time I saw her, she has already ruled out for an MD. Her EKG show ed sinus bradycardia. Troponin was negative. Her BNP was 736. She was hypertensive. Her creatinin e is 1.20. She was mildly anemic. She is pain-free now. Past Medical History: As stated above. Allergies: NONE. Review of Systems: Negative. Social History: Negative. Family History: Noncontributory. Medications: At home include clonidine, Procardia, lovastatin, hydralazine, aspirin, and Coreg. Physical Examination: General: She was pain free. Vital Signs: Stable, afebrile. HEENT: Negative. Neck: Supple without any lymphadenopathy, JVD, thyromegaly. Chest: Clear. Cardiac: Revealed a regular rhythm and rate. No murmurs, gallops, or rubs. Abdomen: Benign. Extremities: Revealed no clubbing, cyanosis, or edema. Diagnostic Data: As stated earlier. Impression And Plan: Atypical chest pain in a patient with multiple cardiac risk factors including h ypertension, dyslipidemia, and diabetes. She has renal insufficiency and anemia that needs to be fol lowed. Echocardiogram and Lexiscan that were already ordered by Dr. Sandoval were done. They were both normal. There were no evidence of ischemia on the stress test. Her chest pain is most likely muscul oskeletal. She can go home whenever it is okay with Dr. Sandoval. If her chest pain persist or continue s, she will come see me in the office. CELINA/ANETA Voice ID: [id number] Report ID: [id number]
[2019-07-05] MEDS ORDERED: ASPIRIN 81 MG CHEWABLE TABLET PO SCH (09:00)
== END 2019-07-04 15:52 | disposition home or self-care (01) ==
LOC: ER 18:01 → ERHOLD 20:54 → 2ND 22:32
PROVIDERS: ADMIT Hospitalist; ATTEND Hospitalist
DX: R07.89 Other chest pain (principal); I10 Essential (primary) hypertension; R06.02 Shortness of breath; E11.9 Type 2 diabetes mellitus without complications; E78.5 Hyperlipidemia, unspecified; D64.9 Anemia, unspecified; N28.9 Disorder of kidney and ureter, unspecified; R00.1 Bradycardia, unspecified; K21.9 Gastro-esophageal reflux disease without esophagitis; M19.90 Unspecified osteoarthritis, unspecified site; F03.90 Unspecified dementia, unspecified severity, without behavioral disturbance, psychotic disturbance, mood disturbance, and anxiety; Z79.82 Long term (current) use of aspirin; Z85.3 Personal history of malignant neoplasm of breast; Z85.038 Personal history of other malignant neoplasm of large intestine; Z90.12 Acquired absence of left breast and nipple; Z83.3 Family history of diabetes mellitus; Z82.49 Family history of ischemic heart disease and other diseases of the circulatory system
CPT/HCPCS: 93005 ×2; 93017; 93306; 85025 ×2; 80048 ×2; 36415; 83735; 85610; 80061; 82947 ×3; 80076; 84484 ×3; 83690; 83880; 71275; 74175; 71045; 78452; 96375; 96374; 99285; Q9967; C9113; J1650; J2270; J2785; J2405; A9500; G0378 ×2

== ENCOUNTER 2019-08-29 08:44 | Emergency (ER) | payer OTHER ==
--- OUTSIDE RECORDS SUMMARY | 2019-08-29 09:09 | XMS REPORT | Clinical Summary ---
:1940 Author Organization [facility] Address [address] [place] [address] Care Team Providers Name Role Phone Danni [...] INFLUENZA VACCINE 09/27/2019 Implants Implanted Type Area Green Chain Offbearer Device Shelf Model / Identifier Expiration Serial / Lot Date Lens Iol Asprc Asymet Bicnvx Ant +26.0d 0deg 6x13mm - [id number] - [id number] Intraocular Left: BARTOLOME 04/26/2019 [id number] 260 / Implanted: Qty: 1 on 10/09/2016 by Abram Van MD at [facility] [employer]ens [employer] [facility] [id number] / [id number] Results Not on fileafter 08/28/2018 ([place]) [place] [address] Advance Directives For more information, please contact: [phone] Type Date Recorded 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
[2019-08-29] MEDS ORDERED: HYDROCODONE/APAP 5/325 MG TAB ONE (10:13)
--- NOTE | 2019-08-29 10:32 | RAD REPORT ---
EXAM DESCRIPTION: CT - [id number] - 08/29/2019 10:02 am CLINICAL HISTORY: Trauma, head and neck injury. fall COMPARISON: CT HEAD CSPINE MPR WO CONTRAST dated 12/31/2012 TECHNIQUE: Axial 5 mm thick images of the head were obtained. Axial 2 mm thick images of the cervical spine were obtained with sagittal and coronal reconstruction images generated and reviewed. All CT scans are performed using dose optimization technique as appropriate and may include automated exposure control or mA/KV adjustment according to patient size. FINDINGS: CT HEAD WITHOUT CONTRAST: No acute hemorrhage, hydrocephalus or extra-axial collection is identified.Moderate generalized brain atrophy is present with moderate periventricular and deep white matter chronic microvascular ischemi c changes.No areas of brain edema or midline shift. The paranasal sinuses and mastoids are clear.The calvarium is intact. CT CERVICAL SPINE WITHOUT CONTRAST: No fracture or subluxation.Mild mid and lower cervical degenerative change with ligamentum flavum alvino cifications seen.No prevertebral soft tissues swelling is identified. IMPRESSION: No acute intracranial or cervical spine findings.
--- NOTE | 2019-08-29 11:19 | RAD REPORT ---
EXAM DESCRIPTION: RAD - Shoulder Left 2 View - 08/29/2019 9:46 am CLINICAL HISTORY: pain, fall weeks ago Fall, pain COMPARISON: No comparisons FINDINGS: Prominent calcific tendinitis is seen. [id number] arthritic changes involve the AC j oint and glenohumeral joint. No acute fracture or dislocation evident. IMPRESSION: Prominent calcific tendinitis.
--- NOTE | 2019-08-29 11:39 | ER ---
Nurse's Notes [facility] Name: Tika Guadalupe Age: 78 yrs Sex: Female : 1940 Arrival Date: 08/29/2019 Time: 08:50 Bed 19 Private MD: Monique Junior Diagnosis: Pain in left shoulder Presentation: 08/28 09:02 Chief complaint: Patient states: L shoulder pain that began weeks ago after a fall. ss Coronavirus screen: Proceed with normal triage. Patient denies a cough. Patient denies shortness of breath or difficulty breathing. Patient denies measured and/or subjective temperature greater than 100.4F prior to today's visit. Patient denies travel on a cruise ship or to a country the [facility] currently lists as an affected area. Patient denies contact with known and/or suspected case of COVID-19. Ebola Screen: Patient denies exposure to infectious person. Patient denies travel to an Ebola-affected area in the 21 days before illness onset. Initial Sepsis Screen: Does the patient meet any 2 criteria? No. Patient's initial sepsis screen is negative. Does the patient have a suspected source of infection? No. Patient's initial sepsis screen is negative. Risk Assessment: Do you want to hurt yourself or someone else? Patient reports no desire to harm self or others. Onset of symptoms was July 2019. 09:02 Method Of Arrival: Ambulatory ss 09:02 Acuity: APRYL 4 ss Historical: - Allergies: 09:03 No Known Allergies; ss - PMHx: 09:03 Cancer, Breast; colon cancer; Hypertension; Diabetes - NIDDM; ss - PSHx: 09:03 Mastectomy, Left; colon surgery; Appendectomy; Cholecystectomy; ss - Immunization history:: Adult Immunizations up to date. - Social history:: Smoking status: Patient denies any tobacco usage or history of. Screenin:02 Abuse screen: Denies threats or abuse. Denies injuries from another. Nutritional ss screening: No deficits noted. Tuberculosis screening: Never had TB. Fall Risk None identified. Assessment: 09:02 General: Appears in no apparent distress. uncomfortable. Pain: Complains of pain in L ss shoulder Pain currently is 8 out of 10 on a pain scale. Quality of pain is described as tender, Aggravated by increased activity, ROM. Neuro: Level of Consciousness is awake, alert, obeys commands, Oriented to person, place, time, situation, Speech is normal, Facial symmetry appears normal, Pupils are PERRLA. Respiratory: Airway is patent Respiratory effort is even, unlabored, Respiratory pattern is regular, symmetrical. GI: Patient currently denies diarrhea, nausea, vomiting. EENT: Oral mucosa is moist. Derm: Skin is intact, is healthy with good turgor, Skin is dry, Skin is pink, warm \T\ dry. normal. Musculoskeletal: Range of motion: limited in left shoulder. 10:03 Reassessment: Pt in XRAY at this time. 10:10 Reassessment: Pain medication given at this time. No other needs voiced at this time. 11:10 Reassessment: Pt resting at this time. Awaiting on xray results. 12:00 Reassessment: Discharge instructions given at this time. Educated on prescription. Pt voiced understanding. Vital Signs: 09:02 BP 192 / 64; Pulse 55; Resp 16; Temp 98.3(TE); Pulse Ox 98% on R/A; Height 5 ft. 0 in. ss (152.40 cm); ED Course: 08:50 Patient arrived in ED. mr 08:51 Monique Junior MD is Private Physician. mr 09:02 Triage completed. 09:02 Patient has correct armband on for positive identification. Bed in low position. Call light in reach. 09:03 Arm band placed on right wrist. 09:04 Jason Muñoz PA is PHCP. [facility] 09:04 Quincy Garber MD is Attending Physician. [facility] 09:47 XRAY Shoulder LEFT 2 view In Process Unspecified. EDMS 10:02 Zully Gramajo, RN is Primary Nurse. 10:02 CT Head C Spine In Process Unspecified. EDMS 11:38 Rafa Richards MD is Referral Physician. [facility] 12:00 No provider procedures requiring assistance completed. Patient did not have IV access during this emergency room visit. Administered Medications: 10:10 Drug: Wis[place] 5 mg-325 mg 1 tabs Route: PO; 11:10 Follow up: Response: No adverse reaction; Pain is decreased Outcome: 11:39 Discharge ordered by . [facility] 12:00 Discharged to home via wheelchair. 12:00 Condition: good 12:00 Discharge instructions given to patient, Instructed on discharge instructions, follow up and referral plans. Demonstrated understanding of instructions, follow-up care, medications, Prescriptions given X 1. 12:19 Patient left the ED. Signatures: Dispatcher [employer] EDJason Leroy PA PA jmm Rivera, Mary mr AlexSayda, RN EMILY Zully Gramajo RN RN
--- NOTE | 2019-08-29 11:39 | EDPHYS ---
Physician Documentation [facility] Name: Tika Guadalupe Age: 78 yrs Sex: Female : 1940 Arrival Date: 08/29/2019 Time: 08:50 Bed 19 Private MD: Monique Junior ED Physician Quincy Garber HPI: 08/28 09:04 This 78 yrs old Female presents to ER via Ambulatory with complaints of jmm Shoulder Pain. 09:04 The patient or guardian complains of pain, that is chronic. Onset: The symptoms/episode jmm began/occurred gradually, 1 week(s) ago. Modifying factors: the symptoms are alleviated by nothing. The symptoms are aggravated by movement. Associated signs and symptoms: Pertinent negatives: abdominal pain, chest pain, shortness of breath. This is a 78 year old female with a history of htn, dm, that presents to the ED with complaints of left shoulder pain which has been ongoing for the past week. Patient states she fell a few weeks prior, hitting her head. Denies LOC. . Historical: - Allergies: 09:03 No Known Allergies; ss - PMHx: 09:03 Cancer, Breast; colon cancer; Hypertension; Diabetes - NIDDM; ss - PSHx: 09:03 Mastectomy, Left; colon surgery; Appendectomy; Cholecystectomy; ss - Immunization history:: Adult Immunizations up to date. - Social history:: Smoking status: Patient denies any tobacco usage or history of. ROS: 09:04 Constitutional: Negative for fever, chills, and weight loss, Cardiovascular: Negative jmm for chest pain, palpitations, and edema, Respiratory: Negative for shortness of breath, cough, wheezing, and pleuritic chest pain. 09:04 MS/extremity: Positive for injury or acute deformity, pain. 09:04 All other systems are negative. Exam: 09:04 Constitutional: This is a well developed, well nourished patient who is awake, alert, jmm and in no acute distress. Head/Face: atraumatic. Eyes: EOMI, no conjunctival erythema appreciated ENT: Moist Mucus Membranes Neck: Trachea midline, Supple Chest/axilla: Normal chest wall appearance and motion. Cardiovascular: Regular rate and rhythm. No edema appreciated Respiratory: Normal respirations, no respiratory distress appreciated Abdomen/GI: Non distended, soft Back: Normal ROM Skin: General appearance color normal 09:04 Musculoskeletal/extremity: painful abduction noted to the left shoulder, left post shoulder tenderness on palpation, full skills auditor strength. compartments are soft, NVI. 09:04 Skin: Appearance: Color: normal in color. 09:04 Neuro: Orientation: is normal, Mentation: is normal, Memory: is normal. 09:04 Psych: Behavior/mood is pleasant, cooperative. Vital Signs: 09:02 BP 192 / 64; Pulse 55; Resp 16; Temp 98.3(TE); Pulse Ox 98% on R/A; Height 5 ft. 0 in. ss (152.40 cm); MDM: 09:39 Patient medically screened. [facility] 11:36 Data reviewed: vital signs, nurses notes. Counseling: I had a detailed discussion with [facility] the patient and/or guardian regarding: the historical points, exam findings, and any diagnostic results supporting the discharge/admit diagnosis, radiology results, the need for outpatient follow up, to return to the emergency department if symptoms worsen or persist or if there are any questions or concerns that arise at home. ED course: pain partially relieved in the ED. patient is advised to follow up with ortho and otherwise given strict return precations. Patient understood and agrees with the plan of care. . 08/28 09:04 Order name: XRAY Shoulder LEFT 2 view; Complete Time: 11:32 ss 08/28 09:31 Order name: CT Head C Spine; Complete Time: 10:33 [facility] Administered Medications: 10:10 Drug: [place] 5 mg-325 mg 1 tabs Route: PO; 11:10 Follow up: Response: No adverse reaction; Pain is decreased Disposition: 19:08 Co-signature as Attending Physician, Quincy Garber MD. ma2 Disposition: 08/29/19 11:39 Discharged to Home. Impression: Pain in left shoulder. - Condition is Stable. - Discharge Instructions: Shoulder Pain. - Prescriptions for orphenadrine citrate 100 mg Oral Tablet Sustained Release - take 1 tablet by ORAL route 2 times per day As needed; 20 tablet. - Medication Reconciliation Form, Thank You Letter, Antibiotic Education, Prescription Opioid Use form. - Follow up: Rafa Richards MD; When: 2 - 3 days; Reason: Recheck today's complaints, Continuance of care, Re-evaluation by your physician. Signatures: Dispatcher [employer] EDMS Jason Muñoz PA PA jmm Smirch, Shelby, EMILY RN Quincy Garber MD MD [facility] Zully Gramajo RN RN Corrections: (The following items were deleted from the chart) 12:19 11:39 08/29/2019 11:39 Discharged to Home. Impression: Pain in left shoulder. Condition ah is Stable. Forms are Medication Reconciliation Form, Thank You Letter, Antibiotic Education, Prescription Opioid Use. Follow up: Dr. Rafa Richards; When: 2 - 3 days; Reason: Recheck today's complaints, Continuance of care, Re-evaluation by your physician. [email or web address]
[2019-08-29 12:26] VITALS: BP 192/64; TEMP 98.3; O2SAT 98
== END 2019-08-29 12:19 | disposition home or self-care (01) ==
LOC: ER 08:44
DX: M25.512 Pain in left shoulder (principal); I10 Essential (primary) hypertension; Z85.3 Personal history of malignant neoplasm of breast; Z85.038 Personal history of other malignant neoplasm of large intestine; Z90.12 Acquired absence of left breast and nipple
CPT/HCPCS: 70450; 72125; 99283

== ENCOUNTER 2022-07-04 09:27 | Emergency (ER) | payer OTHER ==
--- OUTSIDE RECORDS SUMMARY | 2022-07-04 09:30 | XMS REPORT | Continuity of Care Document ---
:1940 Author Organization [facility] t Address [address] [facility] [place] [address] Care Team Providers Name Role Phone Fredy Torres MD Primary Care Physician Almaz Chris Attending Clinician Unavailable Monique Junior Attending Clinician Unavailable Problems This patient has no known problems. Allergies, Adverse Reactions, Alerts This patient has no known allergies or adverse reactions. Family History Family Member Diagnosis Comments Start Date Stop Date Source Natural mother Diabetes [facility] Social History Social Habit Start Date Stop Date Quantity Comments Source [facility] of tobacco [facility] Alcohol intake 2016-10-09 2016-10-09 Current [facility] 00:00:00 00:00:00 non-drinker of Hospital alcohol (finding) History of Social [address] function 00:00:00 00:00:00 Hospital Cigarettes smoked [address] current (pack per 00:00:00 00:00:00 Hospita l day) - Reported Cigarette 2016 2016 [facility] pack-years 00:00:00 00:00:00 Hospital Tobacco use and 2016 2016 Smokeless [facility] exposure 00:00:00 00:00:00 tobacco non-user Hospital Sex Assigned At [birth year] [facility] Smoking Status Start Date Stop Date Source Ex-smoker 2016 00:00:00 2016 [facility] Medications Ordered Filled Start Stop Current Ordering Indication Dosage Frequency Signature Comments Components Source Medication Medication Date Date Medication? Clinician (SIG) Name Name bimatoprost Yes 1[drp] QD Administer [facility] (LUMIGAN) 8-[address] 0.01 % 10:50: both eyes Hospit a ophthalmic 42 nightly. l drops sitaGLIPtin Yes 1{tbl} QD Take 1 Me thodi -metformin 8-[address] (JANUMET 10:50: mouth Hospita XR) 42 daily. l 100-1,000 mg tablet, ER multiphase 24 hr hydrALAZINE Yes 25mg Q.5D Take 25 mg [facility] (APRESOLINE 8-[address] ) 25 MG 10:50: (two) Hospita tablet 42 times a l day. carvedilol Yes 12.5mg Q.5D Take 12.5 [facility] (COREG) 8-[address] 12.5 MG 10:50: mouth 2 Hospita tablet 42 (two) l times a day with meals. NIFEdipine Yes 30mg Q.5D Take 30 mg [facility] XL 8-[address] (PROCARDIA 10:50: (two) Hospit a XL) 30 MG 42 times a l 24 hr day. tablet lovastatin Yes 10mg QD Take 10 mg [facility] (MEVACOR) 8-[address] 10 MG 10:50: nightly. Hospita tablet 42 l Procedures This patient has no known procedures. Plan of Care Planned Activity Planned Date Details Comments Source Future Scheduled 2022-06-01 COVID-19 VACCINE (#1) [facility] [place] [place] Hospital Test 08:01:00 [code = COVID-19 VACCINE (#1)] Future Scheduled 2022-06-01 SHINGLES VACCINES (1 [facility] Hospital Test 08:01:00 of 2) [code = SHINGLES VACCINES (1 of 2)] Future Scheduled 2022-06-01 65+ [facility]OC[address] [facility] Test 08:01:00 VACCINE (1 - PCV) [code = 65+ PNEUMOCOCCAL VACCINE (1 - PCV)] Future Scheduled 2022-06-01 INFLUENZA VACCINE [facility] Test 08:01:00 [code = INFLUENZA VACCINE] Encounters Start End Encounter Admission Attending Care Care Encounter Source Date/Time Date/Time Type Type Clinicians Facility Department ID 2022-04-12 Outpatient Dot [facility] [id number] Common 14:27:03 Almaz [id number] [facility] 2021-12-02 Outpatient Monique Junior [facility] [id number] Common 14:07:00 [facility] Results This patient has no known results.
--- NOTE | 2022-07-04 10:02 | RAD REPORT ---
EXAM DESCRIPTION: CT - CTHCSPWOC - 07/04/2022 9:54 am CLINICAL HISTORY: Trauma, head and neck injury. DIZZINESS COMPARISON: Head C Spine Mpr Wo Con dated 08/29/2019; CT HEAD CSPINE MPR WO CONTRAST dated 12/31/2012 TECHNIQUE: Axial 5 mm thick images of the head were obtained. Axial 2 mm thick images of the cervical spine were obtained with sagittal and coronal reconstruction images generated and reviewed. All CT scans are performed using dose optimization technique as appropriate and may include automated exposure control or mA/KV adjustment according to patient size. FINDINGS: CT HEAD WITHOUT CONTRAST: No acute hemorrhage, hydrocephalus or extra-axial collection is identified.Moderate generalized brain atrophy is present with mild periventricular and deep white matter chronic microvascular ischemic ch anges.No areas of brain edema or midline shift. Mild vertebral atherosclerosis. The paranasal sinuses and mastoids are clear.The calvarium is intact. CT CERVICAL SPINE WITHOUT CONTRAST: No fracture or subluxation.Degenerative changes are present in the cervical spine mid aspect.No preve rtebral soft tissues swelling is identified. IMPRESSION: No acute intracranial or cervical spine findings.
[2022-07-04] MEDS ORDERED: MECLIZINE HCL 12.5 MG TAB ONE (10:25)
[2022-07-04] MEDS ORDERED: NA CHLORIDE 0.9% 500 ML ONE (10:25)
[2022-07-04] MEDS ORDERED: ONDANSETRON 4 MG/2 ML VIAL ONE (10:25)
[2022-07-04 10:44] LABS: Specific Gravity 1.014 (1.005-1.030); Urine Bacteria None Seen /HPF (<20); Urine Bilirubin NEGATIVE (Negative); Urine Blood Negative (Negative); Urine Clarity Clear (Clear); Urine Color Light-Yellow (Yellow); Urine Glucose 4+ (Over) (Negative); Urine Mucus Slight /HPF (None Seen); Urine Protein 1+ (Negative); Urine RBC <5 /HPF (None Seen); Urine Urobilinogen Normal (Normal); Urine pH 5.5 (5.0-7.0)
[2022-07-04 10:45] LABS: Absolute Lymphocytes (CBC) 1.5 K/uL (0.7-4.9); Hematocrit 33.6 % (36.0-45.0); Lymphocytes % 18.6 % (15.3-44.8); MCV 89.1 fL (80-100); MPV 9.1 fL (7.6-11.3); RBC Red Blood Cell Count 3.77 M/uL (3.86-4.86)
[2022-07-04 10:53] LABS: Protime INR 0.97
--- NOTE | 2022-07-04 11:04 | RAD REPORT ---
EXAM DESCRIPTION: RAD - Chest Single View - 07/04/2022 10:16 am CLINICAL HISTORY: fall Chest pain. COMPARISON: Chest Single View dated 07/03/2019; Chest Pa And Lat (2 Views) dated 01/01/2017; Chest Pa A nd Lat (2 Views) dated 08/02/2015; CHEST SINGLE VIEW dated 12/31/2012 FINDINGS: Portable technique limits examination quality. The lungs are grossly clear. The heart is normal in size. No displaced fractures. IMPRESSION: No acute intrathoracic process suspected.
--- NOTE | 2022-07-04 11:06 | RAD REPORT ---
EXAM DESCRIPTION: RAD - Pelvis - 07/04/2022 10:16 am CLINICAL HISTORY: fall COMPARISON: No comparisons FINDINGS: Mild arthritic changes are present in both hips. No acute fracture, dislocation or AVN obs erved.
[2022-07-04 11:09] LABS: Troponin High Sensitivity 12.3 pg/mL (<58.9)
--- NOTE | 2022-07-04 11:21 | RAD REPORT ---
EXAM DESCRIPTION: MRI - Brain Wo Cont - 07/04/2022 11:07 am CLINICAL HISTORY: vertigo, rule out CVA;Dizziness Headache, drowsiness, CVA symptomology COMPARISON: <Comparisons> TECHNIQUE: Multi-sequence, multiplanar MR imaging of the brain was performed without contrast. FINDINGS: No intracranial hemorrhage, hydrocephalus or extra-axial fluid collections.Moderate genera lized brain atrophy with moderate periventricular and deep white matter chronic microvascular ischemi c changes. No edema or shift of midline structures. No findings to suspect brain mass. DWI is negativ e for acute CVA. Midline structures are normally formed. Mastoid air cells and paranasal sinuses are clear. IMPRESSION: No evidence of acute CVA or other acute intracranial process.
--- NOTE | 2022-07-04 11:44 | ER ---
Nurse's Notes [facility] Name: Tika Guadalupe Age: 81 yrs Sex: Female : 1940 Arrival Date: 07/04/2022 Time: 09:27 Bed 19 Private MD: Monique Junior Diagnosis: Vertigo;Dizziness and giddiness;Fall on same level, unspecified;Hyperglycemia, unspecified;Dehydration Presentation: 07/04 09:40 Chief complaint: Pt's son reports unwitnessed fall this morning and pt c/o "feeling aa5 like everything is spinning", also reports vomiting. 09:40 Acuity: APRYL 2 aa5 09:40 Coronavirus screen: vomiting. Ebola Screen: Patient denies travel to an Ebola-affected [facility] area in the 21 days before illness onset. Initial Sepsis Screen: Does the patient meet any 2 criteria? No. Patient's initial sepsis screen is negative. Does the patient have a suspected source of infection? No. Patient's initial sepsis screen is negative. Risk Assessment: Do you want to hurt yourself or someone else? Unable to obtain. Onset of symptoms was July 04, 2022. 09:40 Method Of Arrival: Wheelchair aa5 Historical: - Allergies: 09:45 No Known Allergies; aa5 - PMHx: 09:45 Cancer, Breast; colon cancer; Diabetes - NIDDM; Hypertension; aa5 - PSHx: 09:45 Left mastectomy; aa5 - Immunization history:: Adult Immunizations unknown. - Social history:: Smoking status: Patient denies any tobacco usage or history of. - Family history:: not pertinent. - Hospitalizations: : No recent hospitalization is reported. Screenin:36 [facility] ED Fall Risk Assessment (Adult) History of falling in the last 3 months, ph including since admission. [facility] ED Fall Risk Assessment (Adult) History of falling in the last 3 months, including since admission Yes- single mechanical fall (1 pt) Confusion or Disorientation No (0 pts) Intoxicated or Sedated No (0 pts) Impaired Gait No (0 pts) Mobility Assist Device Used No (0 pt) Altered Elimination No (0 pt) Score/Fall Risk Level 0 - 2 = Low Risk Oriented to surroundings, Maintained a safe environment, Hourly rounding (assess needs \\T\\ fall precautionary measures) done. Abuse screen: Denies threats or abuse. Denies injuries from another. Nutritional screening: No deficits noted. Tuberculosis screening: No symptoms or risk factors identified. Assessment: 10:25 General: Appears in no apparent distress. comfortable, well groomed, Behavior is calm, ph cooperative, appropriate for age. Pain: Denies pain. Neuro: Level of Consciousness is awake, alert, obeys commands, Oriented to person, place, Reports dizziness. Cardiovascular: Reports lightheadedness, nausea, vomiting, Capillary refill < 3 seconds in bilateral fingers Patient's skin is warm and dry. Respiratory: Airway is patent Respiratory effort is even, unlabored, Respiratory pattern is regular, symmetrical. GI: Reports nausea, vomiting, Patient currently denies abdominal pain. Derm: Skin is healthy with good turgor, Skin is pink, warm \\T\\ dry. Musculoskeletal: Circulation, motion, and sensation intact. Range of motion: intact in all extremities. 10:35 Reassessment: Pt taken to MRI. ph Vital Signs: 09:40 BP 158 / 58; Pulse 56; Resp 18 S; Temp 97.3(TE); Pulse Ox 98% on R/A; aa5 10:30 BP 132 / 62; Pulse 52; Resp 18; Pulse Ox 99% ; ph 11:30 BP 131 / 58; Pulse 56; Resp 18; Pulse Ox 98% on R/A; ph 12:32 BP 141 / 58; Pulse 54; Resp 18; Temp 98; Pulse Ox 99% on R/A; ph ED Course: 09:28 Patient arrived in ED. am2 09:29 Clarke Mitchell MD is Attending Physician. rn 09:29 Monique Junior MD is Private Physician. am2 09:40 Arm band placed on. aa5 09:45 Triage completed. aa5 09:46 Lindsay Russell, RN is Primary Nurse. ph 09:51 CT Head C Spine In Process Unspecified. EDMS 10:17 XRAY Chest (1 view) In Process Unspecified. EDMS 10:17 XRAY Pelvis In Process Unspecified. EDMS 10:32 Inserted saline lock: 20 gauge in right antecubital area, using aseptic technique. zm Blood collected. 10:32 BNP Sent. zm 10:32 Basic Metabolic Panel Sent. zm 10:32 CBC with Diff Sent. zm 10:32 High Sensitivity Troponin Sent. zm 10:32 Protime (+inr) Sent. zm 10:32 Ptt, Activated Sent. zm 10:35 Urinalysis w/ reflexes Sent. ph 10:36 Patient has correct armband on for positive identification. Bed in low position. Call ph light in reach. Side rails up X 1. Pulse ox on. NIBP on. Door closed. Noise minimized. Warm blanket given. 10:38 Urinalysis w/ reflexes Sent. ph 11:09 Brain Wo Cont MRI In Process Unspecified. EDMS 11:43 Johnathan Adams MD is Referral Physician. rn 11:44 No provider procedures requiring assistance completed. ph 12:34 IV discontinued, intact, bleeding controlled, No redness/swelling at site. Pressure ph dressing applied. Administered Medications: 10:35 Drug: NS 0.9% IV 500 ml Route: IV; Rate: bolus; Site: right antecubital; ph 12:32 Follow up: Response: No adverse reaction; IV Status: Completed infusion; IV Intake: ph 500ml 10:35 Drug: Ondansetron IVP 4 mg Route: IVP; Site: right antecubital; ph 11:44 Follow up: Response: No adverse reaction ph 11:30 Drug: Meclizine PO 50 mg Route: PO; ph 11:44 Follow up: Response: No adverse reaction ph Medication: 10:36 VIS not applicable for this client. ph Intake: 12:32 IV: 500ml; Total: 500ml. ph Outcome: 11:44 Discharge ordered by MD. rn 12:33 Discharged to home via wheelchair, with family. ph 12:33 Condition: good 12:33 Discharge instructions given to patient, family, Instructed on discharge instructions, follow up and referral plans. medication usage, Demonstrated understanding of instructions, follow-up care, medications, Prescriptions given X 2. 12:34 Patient left the ED. ph Signatures: Dispatcher [employer] EDMS Clarke Mitchell MD MD rn Calderon, Audri, RN RN aa5 Lindsay Russell RN RN ph Dorinda Santos Zaina zm Corrections: (The following items were deleted from the chart) 09:45 09:43 Chief complaint: Pt's son reports unwitnessed fall, aa5 aa5
--- NOTE | 2022-07-04 11:45 | EDPHYS ---
Physician Documentation [facility] Name: Tika Guadalupe Age: 81 yrs Sex: Female : 1940 Arrival Date: 07/04/2022 Time: 09:27 Bed 19 Private MD: Monique Junior ED Physician Clarke Mitchell HPI: 07/04 09:46 This 81 yrs old Female presents to ER via Wheelchair with complaints of Fall rn Injury, Dizziness, Nausea/Vomiting. 09:46 Details of fall: The patient fell from an upright position. Onset: The symptoms/episode rn began/occurred just prior to arrival. Associated injuries: The patient sustained no obvious injury. Severity of symptoms: At their worst the symptoms were very mild, in the emergency department the symptoms have improved. The patient has not experienced similar symptoms in the past. The patient has not recently seen a physician. Pt and son state woke up this morning, felt dizzy, fell, denies injury from fall. Reports dizziness has improved, continues to deny injury or pain. Does not feel sick. + emesis x 1. No chest pain/sob/abd pain/diarrhea. NO blood in stools. Son states has dementia, is acting at her baseline. Grandson heard a sound and went to check on her, found her on ground. . Historical: - Allergies: 09:45 No Known Allergies; aa5 - PMHx: 09:45 Cancer, Breast; colon cancer; Diabetes - NIDDM; Hypertension; aa5 - PSHx: 09:45 Left mastectomy; aa5 - Immunization history:: Adult Immunizations unknown. - Social history:: Smoking status: Patient denies any tobacco usage or history of. - Family history:: not pertinent. - Hospitalizations: : No recent hospitalization is reported. ROS: 09:46 Constitutional: Negative for fever, chills, and weight loss, Eyes: Negative for injury, rn pain, redness, and discharge, Neck: Negative for injury, pain, and swelling, Cardiovascular: Negative for chest pain, palpitations, and edema, Respiratory: Negative for shortness of breath, cough, wheezing, and pleuritic chest pain, Abdomen/GI: Negative for abdominal pain, diarrhea, and constipation, Back: Negative for injury and pain, : Negative for injury, bleeding, discharge, and swelling, MS/Extremity: Negative for injury and deformity, Skin: Negative for injury, rash, and discoloration, Neuro: Negative for headache, weakness, numbness, tingling, and seizure. Exam: 09:46 Constitutional: This is a well developed, well nourished patient who is awake, alert, rn and in no acute distress. Head/Face: Normocephalic, atraumatic. Eyes: Periorbital areas with no swelling, redness, or edema. Neck: No midline cervical tenderness Cardiovascular: Bradycardic, regular. No pulse deficits. Respiratory: No increased work of breathing, no retractions or nasal flaring. Abdomen/GI: Soft, non-tender Back: No spinal tenderness. No costovertebral tenderness. Full range of motion. Skin: Warm, dry MS/ Extremity: Pulses equal, no cyanosis. Neuro: Awake and alert, GCS 15, oriented to person, place, and situation. Cranial nerves II-XII grossly intact. Motor strength 5/5 in all extremities. Sensory grossly intact. Normal finger to nose. Vital Signs: 09:40 BP 158 / 58; Pulse 56; Resp 18 S; Temp 97.3(TE); Pulse Ox 98% on R/A; aa5 10:30 BP 132 / 62; Pulse 52; Resp 18; Pulse Ox 99% ; ph 11:30 BP 131 / 58; Pulse 56; Resp 18; Pulse Ox 98% on R/A; ph 12:32 BP 141 / 58; Pulse 54; Resp 18; Temp 98; Pulse Ox 99% on R/A; ph MDM: 09:29 Patient medically screened. rn 11:42 Differential diagnosis: closed head injury, contusion, fracture, sprain, strain, rn vertigo, CVA, intracranial hemorrhage, diabetic emergency, dehydration. Data reviewed: vital signs, nurses notes, lab test result(s), EKG, radiologic studies, CT scan, MRI, and as a result, I will discharge patient. Independent interpretation of the following test(s) in the Emergency Department EKG: See my EKG interpretation above X-Ray: My interpretation is CXR images neg for pneumonia or pulmonary edema. Counseling: I had a detailed discussion with the patient and/or guardian regarding: the historical points, exam findings, and any diagnostic results supporting the discharge/admit diagnosis, lab results, radiology results, the need for outpatient follow up, to return to the emergency department if symptoms worsen or persist or if there are any questions or concerns that arise at home. Special discussion: I discussed with the patient/guardian in detail that at this point there is no indication for admission to the hospital. It is understood, however, that if the symptoms persist or worsen the patient needs to return immediately for re-evaluation. Based on the history and exam findings, there is no indication for further emergent testing or inpatient evaluation. I discussed with the patient/guardian the need to see the primary care provider for further evaluation of the symptoms. 07/04 09:41 Order name: Basic Metabolic Panel rn 07/04 09:41 Order name: CBC with Diff; Complete Time: 11:07/04 09:41 Order name: High Sensitivity Troponin 07/04 09:41 Order name: Protime (+inr); Complete Time: 11:07/04 09:41 Order name: Ptt, Activated; Complete Time: 11:07/04 09:41 Order name: BNP 07/04 09:42 Order name: Urinalysis w/ reflexes; Complete Time: 11:07/04 09:41 Order name: CT Head C Spine; Complete Time: 10:25 rn 07/04 09:41 Order name: Brain Wo Cont MRI; Complete Time: 11:07/04 09:41 Order name: XRAY Chest (1 view); Complete Time: 11:07/04 09:41 Order name: XRAY Pelvis; Complete Time: 11:22 07/04 09:41 Order name: EKG; Complete Time: 09:07/04 09:41 Order name: Accucheck; Complete Time: 10:35 07/04 09:41 Order name: Cardiac monitoring; Complete Time: 10:35 07/04 09:41 Order name: EKG - Nurse/Tech; Complete Time: 11:47 07/04 09:41 Order name: IV Saline Lock; Complete Time: 10:32 07/04 09:41 Order name: Labs collected and sent; Complete Time: 10:32 07/04 09:41 Order name: O2 Per Protocol; Complete Time: 10:35 07/04 09:41 Order name: O2 Sat Monitoring; Complete Time: 10:35 07/04 09:41 Order name: Stroke Swallow Screen; Complete Time: 10:35 rn Administered Medications: 10:35 Drug: NS 0.9% IV 500 ml Route: IV; Rate: bolus; Site: right antecubital; ph 12:32 Follow up: Response: No adverse reaction; IV Status: Completed infusion; IV Intake: ph 500ml 10:35 Drug: Ondansetron IVP 4 mg Route: IVP; Site: right antecubital; ph 11:44 Follow up: Response: No adverse reaction ph 11:30 Drug: Meclizine PO 50 mg Route: PO; ph 11:44 Follow up: Response: No adverse reaction ph Disposition Summary: 07/04/22 11:44 Discharge Ordered Location: Home rn Problem: new rn Symptoms: have improved rn Condition: Stable rn Diagnosis - Vertigo rn - Dizziness and giddiness rn - Fall on same level, unspecified rn - Hyperglycemia, unspecified rn - Dehydration rn Followup: rn - With: Johnathan Adams MD - When: As needed - Reason: Recheck today's complaints, Re-evaluation by your physician Discharge Instructions: - Discharge Summary Sheet rn - Dehydration, Adult rn - Dizziness rn - Hyperglycemia rn - Vertigo rn - Blood Glucose Monitoring, Adult rn Forms: - Medication Reconciliation Form rn - Thank You Letter rn - Antibiotic rn child - Prescription Opioid Use rn - Family Work Release ph Prescriptions: - ondansetron 4 mg Oral Tablet,disintegrating - take 1 tablet by ORAL route every 8-10 hours As needed; 10 tablet; Refills: 0, rn Product Selection Permitted - Meclizine 25 mg Oral Tablet - take 1 tablet by ORAL route every 8 hours As needed; 30 tablet; Refills: 0, rn Product Selection Permitted Signatures: Dispatcher [employer] Clarke Mcgee MD MD rn Calderon, Audri, RN RN aa5 Lindsay Russell RN RN ph
[2022-07-04 12:51] VITALS: BP 141/58; TEMP 98; O2SAT 99
--- NOTE | 2022-07-05 16:00 | EKG ---
Test Date: 2022-07-04 Test Time: 11:46:20 Motor Vehicles Supervisor: AUDELIA MEASUREMENT RESULTS: Intervals: Rate: 60 OR: QRSD: 78 QT: 472 QTc: 472 [place]: P: OR: QRS: 46 T: 25 INTERPRETIVE STATEMENTS: Atrial fibrillation Nonspecific ST and T wave abnormality Abnormal ECG Compared to ECG 07/04/2019 10:14:51 ST (T wave) deviation now present Sinus rhythm no longer present First degree AV block no longer present Electronically Signed On 07-05-22 15:57:32 CDT by Mani Georges
== END 2022-07-04 12:34 | disposition home or self-care (01) ==
LOC: ER 09:27
DX: R42 Dizziness and giddiness (principal); E86.0 Dehydration; E11.65 Type 2 diabetes mellitus with hyperglycemia; W18.30XA Fall on same level, unspecified, initial encounter; Z90.12 Acquired absence of left breast and nipple; Z85.3 Personal history of malignant neoplasm of breast
CPT/HCPCS: 96361; 93005; 85025; 81001; 80048; 36415; 85610; 85730; 84484; 83880; 70450; 72125; 71045; 72170; 70551; 96374; 99284; J8597; J2405; J7040

== ENCOUNTER 2022-10-19 07:54 | Emergency (ER) | payer OTHER ==
--- OUTSIDE RECORDS SUMMARY | 2022-10-19 07:57 | XMS REPORT | Continuity of Care Document ---
:1940 Author Organization [facility] t Address [address] [place] [address] Care Team Providers Name Role Phone Fredy Torres MD Primary Care Physician Armando Hein Attending Clinician Unavailable Almaz Chris Attending Clinician Unavailable Monique Junior Attending Clinician Unavailable Problems This patient has no known problems. Allergies, Adverse Reactions, Alerts This patient has no known allergies or adverse reactions. Family History Family Member Diagnosis Comments Start Date Stop Date Source Natural mother Diabetes [facility] Social History Social Habit Start Date Stop Date Quantity Comments Source History of tobacco Cigarette Smoker [facility] Gender identity [facility] Alcohol intake 2016-10-09 2016-10-09 Current Yarsanism 00:00:00 00:00:00 non-drinker of Hospital alcohol (finding) Tobacco use and 2016 2016 Smokeless Yarsanism exposure 00:00:00 00:00:00 tobacco non-user Hospital History of Social [address] function 00:00:00 00:00:00 Hospital Cigarettes smoked [address] current (pack per 00:00:00 00:00:00 Hospita l ) - Reported Cigarette 2016 2016 Yarsanism pack-years 00:00:00 00:00:00 Hospital Sex Ass[birth year] At [birth year] [facility]ism 00:00:00 00:00:00 Hospital Smoking Status Start Date Stop Date Source Ex-smoker 2016 00:00:00 2016 00:00:00 [facility] Medications Ordered Filled Start Stop Current Ordering Indication Dosage Frequency Signature Comments Components Source Medication Medication Date Date Medication? Clinician (SIG) Name Name NIFEdipine 2017-0 Yes 30mg Q.5D Take 30 mg [facility] XL 8-[address] (PROCARDIA 10:50: (two) Hospit a XL) 30 MG 42 times a l 24 hr day. tablet lovastatin 2017-0 Yes 10mg QD Take 10 mg M [facility]i (MEVACOR) 8-[address] 10 MG 10:50: nightly. Hospita tablet 42 l bimatoprost 2017-0 Yes 1[drp] QD Administer [facility] (LUMIGAN) 8-[address] 0.01 % 10:50: both eyes Hospit a ophthalmic 42 nightly. l drops sitaGLIPtin 2016-0 Yes 1{tbl} QD Take 1 Me thodi -metformin 8-[address] (JANUMET 10:50: mouth Hospita XR) 42 daily. l 100-1,000 mg tablet, ER multiphase 24 hr hydrALAZINE 2016-0 Yes 25mg Q.5D Take 25 mg [facility] (APRESOLINE 8-[address] ) 25 MG 10:50: (two) Hospita tablet 42 times a l day. carvedilol 2017-0 Yes 12.5mg Q.5D Take 12.5 [facility] (COREG) 8-[address] 12.5 MG 10:50: mouth 2 Hospita tablet 42 (two) l times a day with meals. NIFEdipine 2017-0 Yes 30mg Q.5D Take 30 mg M ethodi XL 8-[address] (PROCARDIA 10:50: (two) Hospit a XL) 30 MG 42 times a l 24 hr day. tablet lovastatin 2017-0 Yes 10mg QD Take 10 mg M ethodi (MEVACOR) 8-[address] 10 MG 10:50: nightly. Hospita tablet 42 l bimatoprost 2017-0 Yes 1[drp] QD Administer [facility] (LUMIGAN) 8-[address] 0.01 % 10:50: both eyes Hospit a ophthalmic 42 nightly. l drops sitaGLIPtin 2017-0 Yes 1{tbl} QD Take 1 Me thodi -metformin 8-[address] (JANUMET 10:50: mouth Hospita XR) 42 daily. l 100-1,000 mg tablet, ER multiphase 24 hr hydrALAZINE 2017-0 Yes 25mg Q.5D Take 25 mg [facility] (APRESOLINE 8-[address] ) 25 MG 10:50: (two) Hospita tablet 42 times a l day. carvedilol 2017-0 Yes 12.5mg Q.5D Take 12.5 [facility] (COREG) 8-[address] 12.5 MG 10:50: mouth 2 Hospita tablet 42 (two) l times a day with meals. Procedures This patient has no known procedures. Plan of Care Planned Activity Planned Date Details Comments Source Future Scheduled 2022-09-28 COVID-19 VACCINE (#1) [facility] Test 01:53:33 [code = COVID-19 VACCINE (#1)] Future Scheduled 2022-09-28 SHINGLES VACCINES (1 Met [facility] Test 01:53:33 of 2) [code = SHINGLES VACCINES (1 of 2)] Future Scheduled 2022-09-28 65+ PNEUMOCOCCAL [facility] Test 01:53:33 VACCINE (1 - PCV) [code = 65+ PNEUMOCOCCAL VACCINE (1 - PCV)] Future Scheduled 2022-09-28 INFLUENZA VACCINE [facility] Test 01:53:33 [code = INFLUENZA VACCINE] Future Scheduled 2022-06-01 COVID-19 VACCINE (#1) [facility] Test 08:01:00 [code = COVID-19 VACCINE (#1)] Future Scheduled 2022-06-01 SHINGLES VACCINES (1 Met [facility] Test 08:01:00 of 2) [code = SHINGLES VACCINES (1 of 2)] Future Scheduled 2022-06-01 65+ PNEUMOCOCCAL [facility] Test 08:01:00 VACCINE (1 - PCV) [code = 65+ PNEUMOCOCCAL VACCINE (1 - PCV)] Future Scheduled 2022-06-01 INFLUENZA VACCINE [facility] Test 08:01:00 [code = INFLUENZA VACCINE] Encounters Start End Encounter Admission Attending Care Care Encounter Source Date/Time Date/Time Type Type Clinicians Facility Department ID 2022-09-14 [facility] [id number] Common 11:08:00 Armando [id number] [facility] 2022-08-24 Outpatient Angel Luis, STLMLC STLMLC [id number] Common 10:08:02 Avnee [id number] [facility] 2022-08-01 Outpatient Hein, STLMLC STLMLC [id number] Common 10:28:01 Avnee [id number] [facility] 2022-04-12 Outpatient Dot, STLMLC STLC [id number] Common 14:27:03 Almaz [id number] [facility] 2021-12-02 Outpatient Monique Junior STLMLC STLC [id number] 2 Common 14:07:00 [id number] [facility] Results This patient has no known results.
[2022-10-19 09:08] LABS: Albumin 3.3 g/dL (3.4-5.0); Bilirubin Total 0.3 mg/dL (0.2-1.0); Potassium 3.5 mEq/L (3.5-5.1); Protein, Total 7.1 g/dL (6.4-8.2)
[2022-10-19 09:09] LABS: SARS-CoV-2 Antigen Rapid Res Positive (Negative)
[2022-10-19 09:10] LABS: Hematocrit 33.1 % (36.0-45.0); Lymphocytes % 23.8 % (15.3-44.8); MCV 88.7 fL (80-100); MPV 9.4 fL (7.6-11.3); Platelets 138 thou/uL (152-406); RBC Red Blood Cell Count 3.73 M/uL (3.86-4.86)
--- NOTE | 2022-10-19 09:58 | RAD REPORT ---
EXAM DESCRIPTION: RAD - Chest Pa And Lat (2 Views) - 10/19/2022 9:49 am CLINICAL HISTORY: COUGH Chest pain. COMPARISON: Chest Single View dated 07/04/2022; Chest Single View dated 07/03/2019; Chest Pa And Lat (2 Views) dated 01/01/2017; Chest Pa And Lat (2 Views) dated 08/02/2015 FINDINGS: The lungs are hyperexpanded compatible with COPD. No focal infiltrate detected. The heart is normal in size. No displaced fractures. IMPRESSION: Mild COPD suspected.
--- NOTE | 2022-10-19 10:07 | EDPHYS ---
Physician Documentation [facility] Name: Tika Guadalupe Age: 82 yrs Sex: Female : 1940 Arrival Date: 10/19/2022 Time: 07:54 Bed 7 Private MD: ED Physician Sreedhar Hargrove HPI: 10/19 10:55 This 82 yrs old Female presents to ER via Wheelchair with complaints of Fever, rt Cough, Diarrhea. 10:55 Patient presents to the ED with cough, fever, diarrhea starting last night. Patient has rt had multiple sick contacts. Denies difficulty breathing, abdominal pain, nausea, vomiting, other acute complaints. Symptoms are mild in severity, no other aggravating or alleviating factors.. Historical: - Allergies: 08:11 No Known Allergies; bp - PMHx: 08:11 Hypertension; Diabetes - NIDDM; colon cancer; Cancer, Breast; bp - PSHx: 08:11 Left Mastectomy; bp - Immunization history:: Adult Immunizations unknown. - Social history:: Smoking status: unknown. ROS: 10:55 Unable to obtain ROS due to baseline dementia. rt Exam: 10:55 Constitutional: This is a well developed, well nourished patient who is awake, alert, rt and in no acute distress. Head/Face: Normocephalic, atraumatic. Chest/axilla: Normal chest wall appearance and motion. Nontender with no deformity. No lesions are appreciated. Cardiovascular: Regular rate and rhythm with a normal S1 and S2. No gallops, murmurs, or rubs. Normal PMI, no JVD. No pulse deficits. Respiratory: Lungs have equal breath sounds bilaterally, clear to auscultation and percussion. No rales, rhonchi or wheezes noted. No increased work of breathing, no retractions or nasal flaring. Abdomen/GI: Soft, non-tender, with normal bowel sounds. No distension or tympany. No guarding or rebound. No evidence of tenderness throughout. Skin: Warm, dry with normal turgor. Normal color with no rashes, no lesions, and no evidence of cellulitis. MS/ Extremity: Pulses equal, no cyanosis. Neurovascular intact. Full, normal range of motion. Neuro: Awake and alert, GCS 15, oriented to person, place, time, and situation. Cranial nerves II-XII grossly intact. Motor strength 5/5 in all extremities. Sensory grossly intact. Cerebellar exam normal. Normal gait. Vital Signs: 08:25 BP 138 / 48; Pulse 54; Resp 19; Temp 99; Pulse Ox 96% on R/A; iw 09:59 BP 149 / 99; Pulse 59; Resp 18; Pulse Ox 99% on R/A; iw MDM: 08:21 Patient medically screened. rt 10:55 Differential diagnosis: Viral infection, COVID, pneumonia. Data reviewed: vital signs, rt nurses notes, lab test result(s), EKG, radiologic studies. Consideration of Admission/Observation Escalation of care including admission/observation considered. Stable vital signs, unremarkable labs, x-ray. No indications for admission at this time, return precautions discussed.. Independent interpretation of the following test(s) in the Emergency Department X-Ray: My interpretation is No consolidation seen on interpretation of the x-ray images. Test considered but Not performed: CT: Low suspicion for PE, CT angiogram not indicated. Historians other than the Patient: Daughter/Son: . Care significantly affected by the following chronic conditions: Diabetes, Hypertension. Counseling: I had a detailed discussion with the patient and/or guardian regarding the historical points, exam findings, and any diagnostic results supporting the discharge/admit diagnosis, lab results, radiology results, the need for outpatient follow up, to return to the emergency department if symptoms worsen or persist or if there are any questions or concerns that arise at home. 10/19 08:27 Order name: SARS RAPID; Complete Time: 09:17 rt 10/19 08:27 Order name: CBC with Diff; Complete Time: 09:17 rt 10/19 08:27 Order name: CMP; Complete Time: 09:17 rt 10/19 08:27 Order name: Chest Pa And Lat (2 Views) XRAY; Complete Time: 10:02 rt Administered Medications: No medications were administered Disposition Summary: 10/19/22 10:07 Discharge Ordered Location: Home rt Problem: new rt Symptoms: are unchanged rt Condition: Stable rt Diagnosis - Covid rt Followup: rt - With: Private Physician - When: 5 - 6 days - Reason: Discharge Instructions: - Discharge Summary Sheet rt - COVID-19 rt Forms: - Family Work Release rt - Medication Reconciliation Form rt - Thank You Letter rt - Antibiotic Education rt - Prescription Opioid Use rt - Patient Portal Instructions rt - Leadership Thank You Letter rt Prescriptions: - albuterol sulfate 90 mcg/actuation Inhalation HFA Aerosol Inhaler - inhale 2 puff by INHALATION route every 4 hours administer via ventilator; 1 rt Each; Refills: 0, Product Selection Permitted Signatures: Dispatcher [employer] Madina Jefferson RN RN iw Peltier, Brian, RN RN bp Turkington, Ryan, MD MD rt
--- NOTE | 2022-10-19 10:07 | ER ---
[facility] Name: Tika Guadalupe Age: 82 yrs Sex: Female : 1940 Arrival Date: 10/19/2022 Time: 07:54 Bed 7 Private MD: Diagnosis: Covid Presentation: 10/19 08:25 Chief complaint: Patient's son or daughter states: cough, fever of 10 2 since last iw night, also has diarrhea. Coronavirus screen: cough unrelated to allergies, diarrhea. 08:25 Ebola Screen: Patient negative for fever greater than or equal to 101.5 degrees iw Fahrenheit, and additional compatible Ebola Virus Disease symptoms Patient denies exposure to infectious person. Patient denies travel to an Ebola-affected area in the 21 days before illness onset. No symptoms or risks identified at this time. Initial Sepsis Screen: Does the patient meet any 2 criteria? No. Patient's initial sepsis screen is negative. Does the patient have a suspected source of infection? No. Patient's initial sepsis screen is negative. Risk Assessment: Do you want to hurt yourself or someone else? Patient reports no desire to harm self or others. Onset of symptoms was October 18, 2022. 08:25 Method Of Arrival: Wheelchair iw 08:25 Acuity: APRYL 3 iw Triage Assessment: 08:35 General: Behavior is calm, cooperative. iw 09:00 General: Appears in no apparent distress. iw Historical: - Allergies: 08:11 No Known Allergies; bp - PMHx: 08:11 Hypertension; Diabetes - NIDDM; colon cancer; Cancer, Breast; bp - PSHx: 08:11 Left Mastectomy; bp - Immunization history:: Adult Immunizations unknown. - Social history:: Smoking status: unknown. Screenin:31 [facility] ED Fall Risk Assessment (Adult) Score/Fall Risk Level 0 - 2 = Low Risk. Abuse iw screen: Denies threats or abuse. Denies injuries from another. Nutritional screening: No deficits noted. Tuberculosis screening: No symptoms or risk factors identified. Assessment: 08:35 General: Appears in no apparent distress. Behavior is calm, cooperative. Pain: Denies iw pain. Neuro: Level of Consciousness is awake, alert, obeys commands. Cardiovascular: Patient's skin is warm and dry. Respiratory: Respiratory effort is even, unlabored, Respiratory pattern is regular, symmetrical, Parent/caregiver reports the patient having cough that is. GI: Abdomen is non-distended, Parent/caregiver reports the patient having diarrhea. Derm: Skin is fragile, is thin. 09:31 Reassessment: Patient appears in no apparent distress at this time. Patient and/or iw family updated on plan of care and expected duration. Pain level reassessed. 10:00 Reassessment: Patient appears in no apparent distress at this time. Patient and/or iw family updated on plan of care and expected duration. Pain level reassessed. Patient is alert, oriented x 3, equal unlabored respirations, skin warm/dry/pink. Vital Signs: 08:25 BP 138 / 48; Pulse 54; Resp 19; Temp 99; Pulse Ox 96% on R/A; iw 09:59 BP 149 / 99; Pulse 59; Resp 18; Pulse Ox 99% on R/A; iw ED Course: 07:56 Patient arrived in ED. im 07:57 Sreedhar Hargrove MD is Attending Physician. rt 08:24 Madina Cash RN is Primary Nurse. iw 08:25 Triage completed. iw 08:25 Arm band placed on. iw 09:00 Patient has correct armband on for positive identification. Provided Education on: labs.iw 09:00 Inserted saline lock: 22 gauge in right antecubital area, using aseptic technique. iw 09:51 Chest Pa And Lat (2 Views) XRAY In Process Unspecified. EDMS 10:32 No provider procedures requiring assistance completed. IV discontinued, intact, iw bleeding controlled, No redness/swelling at site. Pressure dressing applied. Administered Medications: No medications were administered Medication: 09:31 VIS not applicable for this client. iw Outcome: 10:07 Discharge ordered by . rt 10:32 Discharged to home via wheelchair, with family. iw 10:32 Condition: good 10:32 Discharge instructions given to family, Instructed on discharge instructions, follow up and referral plans. Demonstrated understanding of instructions, follow-up care, Prescriptions given X 1. 10:33 Patient left the ED. iw Signatures: Dispatcher [employer] EDMS Madina Cash RN RN iw Nehemiah Kinsey RN RN bp Sreedhar Hargrove MD MD rt [facility] im Corrections: (The following items were deleted from the chart) 19:30 10:32 Discharge instructions given to family, Instructed on discharge instructions, iw follow up and referral plans. Demonstrated understanding of instructions, follow-up care, iw
[2022-10-19 10:55] VITALS: TEMP 99
[2022-10-19 10:56] VITALS: BP 149/99; O2SAT 99
== END 2022-10-19 10:33 | disposition home or self-care (01) ==
LOC: ER 07:54
DX: U07.1 COVID-19 (principal); E11.9 Type 2 diabetes mellitus without complications; I10 Essential (primary) hypertension; Z85.3 Personal history of malignant neoplasm of breast; Z85.038 Personal history of other malignant neoplasm of large intestine
CPT/HCPCS: 36415; 71046; 80053; 85025; 87811; 99283

== ENCOUNTER → 2023-03-10 | Emergency (ER) | payer OTHER ==
--- NOTE | 2023-03-10 11:23 | RAD REPORT ---
EXAM DESCRIPTION: CT - Head Brain Wo Cont - 03/10/2023 11:15 am CLINICAL HISTORY: TRAUMA Fall, trauma, head injury COMPARISON: <Comparisons> TECHNIQUE: All CT scans are performed using dose optimization technique as appropriate and may inclu de automated exposure control or mA/KV adjustment according to patient size. FINDINGS: No intracranial hemorrhage, hydrocephalus or extra-axial fluid collection.Advanced general ized brain atrophy is present with moderate periventricular and deep white matter chronic microvascul ar ischemic changes.No areas of brain edema or evidence of midline shift. Vertebral atherosclerosis. The paranasal sinuses and mastoids are clear. The calvarium is intact. IMPRESSION: No acute intracranial abnormality.
--- NOTE | 2023-03-10 11:25 | RAD REPORT ---
EXAM DESCRIPTION: RAD - Pelvis - 03/10/2023 11:18 am CLINICAL HISTORY: PAIN Fall, trauma, pain COMPARISON: <Comparisons> FINDINGS: No fracture, dislocation or radiographic evidence of AVN. IMPRESSION: Negative study.
--- NOTE | 2023-03-10 11:26 | RAD REPORT ---
EXAM DESCRIPTION: RAD - Sacrum And Coccyx - 03/10/2023 11:18 am CLINICAL HISTORY: PAIN Fall, pain COMPARISON: <Comparisons> FINDINGS: Diffuse osteopenia. Symmetric SI joints are noted. No fracture or subluxation seen.
--- NOTE | 2023-03-10 11:30 | ER ---
Nurse's Notes [facility] Name: Tika Guadalupe Age: 82 yrs Sex: Female : 1940 Arrival Date: 03/10/2023 Time: 10:05 Bed 16 Private MD: Steve Heard Diagnosis: Fall on same level from slipping, tripping and stumbling without subsequent striking against object;Low back pain Presentation: 03/10 10:28 Chief complaint: Low back pain after fall onto hardwood floor this morning. Negative hb LOC. Coronavirus screen: At this time, the client does not indicate any symptoms associated with coronavirus-19. Ebola Screen: No symptoms or risks identified at this time. Initial Sepsis Screen: Does the patient meet any 2 criteria? No. Patient's initial sepsis screen is negative. Does the patient have a suspected source of infection? No. Patient's initial sepsis screen is negative. Risk Assessment: Do you want to hurt yourself or someone else? Patient reports no desire to harm self or others. Onset of symptoms was March 10, 2023. 10:28 Method Of Arrival: Wheelchair hb 10:28 Acuity: APRYL 4 hb Historical: - Allergies: 10:29 No Known Allergies; hb - Home Meds: 10:29 aspirin 81 mg Oral chew [Active]; carvedilol 12.5 mg Oral tab 1 tab 2 times per day hb [Active]; clonidine HCl 0.1 mg Oral tab 1 tab 2 times per day [Active]; hydralazine 50 mg Oral tab 2 times per day [Active]; Janumet 50-500 mg Oral tab 1 tab 2 times per day [Active]; lovastatin 10 mg Oral tab 1 tab once daily [Active]; nifedipine 60 mg Oral tr24 once daily [Active]; - PMHx: 10:29 Cancer; Diabetes - NIDDM; Hypertension; colon cancer; hb - PSHx: 10:29 Left Mastectomy; hb - Immunization history:: Adult Immunizations up to date. - Social history:: Smoking status: Patient denies any tobacco usage or history of. Screenin:[facility] ED Fall Risk Assessment (Adult) History of falling in the last 3 months, kc6 including since admission Yes- single mechanical fall (1 pt) Confusion or Disorientation No (0 pts) Intoxicated or Sedated No (0 pts) Impaired Gait Yes (1 pt) Mobility Assist Device Used Yes (1 pt) Altered Elimination No (0 pt) Score/Fall Risk Level 3 or more points = High Risk. Abuse screen: Denies threats or abuse. Denies injuries from another. Nutritional screening: No deficits noted. Tuberculosis screening: No symptoms or risk factors identified. Assessment: 10:44 General: Appears in no apparent distress. comfortable, well groomed, well developed, kc6 Behavior is calm, cooperative, appropriate for age. Neuro: Level of Consciousness is awake, alert, obeys commands, Oriented to person, place, time, situation, Appropriate for age. Cardiovascular: Capillary refill < 3 seconds. Respiratory: Airway is patent Trachea midline Respiratory effort is even, unlabored, Respiratory pattern is regular, symmetrical. GI: No signs and/or symptoms were reported involving the gastrointestinal system. : No signs and/or symptoms were reported regarding the genitourinary system. EENT: No signs and/or symptoms were reported regarding the EENT system. Derm: No signs and/or symptoms reported regarding the dermatologic system. Skin is intact, is healthy with good turgor, Skin is pink, warm \T\ dry. Musculoskeletal: No signs and/or symptoms reported regarding the musculoskeletal system. Circulation, motion, and sensation intact. Capillary refill < 3 seconds, Range of motion: intact in all extremities. Vital Signs: 10:28 BP 167 / 64; Pulse 62; Resp 16; Temp 97.9; Pulse Ox 97% on R/A; Weight 49.9 kg; Height hb 5 ft. 5 in. ; Pain 8/10; 10:28 Body Mass Index 18.30 (49.90 kg, 165.1 cm) hb 10:28 Pain Scale: Adult hb ED Course: 10:07 Patient arrived in ED. rg4 10:08 Steve Heard DO is Private Physician. rg4 10:08 Britany Delarosa FNP-C is [facility]. kb 10:09 Marcin Chou MD is Attending Physician. kb 10:29 Triage completed. hb 10:30 Arm band placed on. hb 10:43 Sera Hodgson RN is Primary Nurse. kc6 10:43 Patient maintains SpO2 saturation greater than 95% on room air. kc6 10:44 Patient has correct armband on for positive identification. Bed in low position. Call kc6 light in reach. Side rails up X2. Adult w/ patient. Client placed on continuous cardiac and pulse oximetry monitoring. NIBP monitoring applied. 11:17 CT Head Brain wo Cont In Process Unspecified. EDMS 11:20 Pelvis XRAY In Process Unspecified. EDMS 11:20 Sacrum And Coccyx XRAY In Process Unspecified. EDMS 11:38 No provider procedures requiring assistance completed. Patient did not have IV access kc6 during this emergency room visit. Administered Medications: No medications were administered Medication: 11:38 VIS not applicable for this client. kc6 Outcome: 11:30 Discharge ordered by . rossy 11:38 Discharged to home via wheelchair, with family, kc6 11:38 Condition: good 11:38 Discharge instructions given to patient, family, Instructed on discharge instructions, follow up and referral plans. medication usage, Demonstrated understanding of instructions, follow-up care, medications, Prescriptions given X 1, 11:39 Patient left the ED. kc6 Signatures: Dispatcher [employer] EDBritany Myles, BOXCAR WEIGHER-C BOXCAR WEIGHER-Michelle Amaral, RN RN Layne Colin rg4 Sera Hodgson RN RN kc6 Corrections: (The following items were deleted from the chart) 10:30 10:29 PMHx: Cancer; hb hb 10:30 10:29 PMHx: Cancer; hb hb 10:30 10:29 PMHx: Cancer; hb hb 10:30 10:29 PMHx: Cancer; hb hb
--- NOTE | 2023-03-10 11:30 | EDPHYS ---
Physician Documentation [facility] Name: Tika Guadalupe Age: 82 yrs Sex: Female : 1940 Arrival Date: 03/10/2023 Time: 10:05 Bed 16 Private MD: [facility] ED Physician Marcin Chou HPI: 03/10 11:44 This 82 yrs old Female presents to ER via Wheelchair with complaints of Fall kb Injury. 11:44 Patient is an 82-year-old female who was walking to the restroom, had to step up on 1 kb step and fell backwards. Son states she hit her bottom on the ground and then fell the rest of the way and slightly hit her head. Has been complaining of pain to tailbone since the fall.. Historical: - Allergies: 10:29 No Known Allergies; hb - Home Meds: 10:29 aspirin 81 mg Oral chew [Active]; carvedilol 12.5 mg Oral tab 1 tab 2 times per day hb [Active]; clonidine HCl 0.1 mg Oral tab 1 tab 2 times per day [Active]; hydralazine 50 mg Oral tab 2 times per day [Active]; Janumet 50-500 mg Oral tab 1 tab 2 times per day [Active]; lovastatin 10 mg Oral tab 1 tab once daily [Active]; nifedipine 60 mg Oral tr24 once daily [Active]; - PMHx: 10:29 Cancer; Diabetes - NIDDM; Hypertension; colon cancer; hb - PSHx: 10:29 Left Mastectomy; hb - Immunization history:: Adult Immunizations up to date. - Social history:: Smoking status: Patient denies any tobacco usage or history of. ROS: 11:43 Constitutional: Negative for fever, chills, and weight loss, kb 11:43 Back: Positive for pain with movement, of the sacrum, 11:43 All other systems are negative, Exam: 11:43 Constitutional: This is a well developed, well nourished patient who is awake, alert, kb and in no acute distress. Head/Face: Normocephalic, atraumatic. ENT: Moist Mucous membranes Respiratory: Respirations even and unlabored. No increased work of breathing. Talking in full sentences Abdomen/GI: Soft, non-tender. No distention Skin: Warm, dry with normal turgor. Normal color. MS/ Extremity: Pulses equal, no cyanosis. Neurovascular intact. Full, normal range of motion. 11:43 Back: pain, that is moderate, of the sacrum, ROM is painful, 11:43 Neuro: Exam negative for acute changes, Vital Signs: 10:28 BP 167 / 64; Pulse 62; Resp 16; Temp 97.9; Pulse Ox 97% on R/A; Weight 49.9 kg; Height hb 5 ft. 5 in. ; Pain 8/10; 10:28 Body Mass Index 18.30 (49.90 kg, 165.1 cm) hb 10:28 Pain Scale: Adult hb MDM: 10:09 Patient medically screened. kb 11:44 Differential diagnosis: closed head injury, contusion, fracture, strain. Data reviewed: kb vital signs, nurses notes. Historians other than the Patient: Daughter/Son: Son. Counseling: I had a detailed discussion with the patient and/or guardian regarding the historical points, exam findings, and any diagnostic results supporting the discharge/admit diagnosis, radiology results, the need for outpatient follow up, a family practitioner, to return to the emergency department if symptoms worsen or persist or if there are any questions or concerns that arise at home. 11:44 ED course: Son requested a new prescription for meclizine for patient's diagnosed kb vertigo.. 03/10 10:23 Order name: Pelvis XRAY; Complete Time: 11:25 kb 03/10 10:23 Order name: Sacrum And Coccyx XRAY; Complete Time: 11:29 kb 03/10 10:23 Order name: CT Head Brain wo Cont; Complete Time: 11:25 kb Administered Medications: No medications were administered Disposition Summary: 03/10/23 11:30 Discharge Ordered Notes: Location: Home kb Condition: Stable kb Diagnosis - Fall on same level from slipping, tripping and stumbling without subsequent kb striking against object - Low back pain kb Followup: kb - With: Emergency Department - When: As needed - Reason: Worsening of condition Followup: kb - With: Private Physician - When: 2 - 3 days - Reason: Recheck today's complaints, Continuance of care, Re-evaluation by your physician Discharge Instructions: - Discharge Summary Sheet kb - Musculoskeletal Pain kb Forms: - Medication Reconciliation Form kb - Thank You Letter kb - Antibiotic Education kb - Prescription Opioid Use kb - Patient Portal Instructions kb - Leadership Thank You Letter kb Prescriptions: - Meclizine 25 mg Oral tablet - take 1 tablet ORAL route every 8 hours As needed; 21 tablet; Refills: 0, kb Product Selection Permitted Signatures: Dispatcher [employer] Britany Juarez, SARAH-C Michelle Wolf, RN RN hb Corrections: (The following items were deleted from the chart) 10:30 10:29 PMHx: Cancer; hb hb 10:30 10:29 PMHx: Cancer; hb hb 10:30 10:29 PMHx: Cancer; hb hb 10:30 10:29 PMHx: Cancer; hb hb
[2023-03-10 12:31] VITALS: BP 167/64; TEMP 97.9; O2SAT 97
== END ==
LOC: ER 10:05
DX: M54.50 Low back pain, unspecified (principal); W01.0XXA Fall on same level from slipping, tripping and stumbling without subsequent striking against object, initial encounter
CPT/HCPCS: 70450; 72170; 72220; 99284

== ENCOUNTER 2023-04-16 08:57 | Inpatient (IN) | payer OTHER ==
[2023-04-16] MEDS ORDERED: HYDROCODONE/APAP 5/325 MG TAB ONE (09:13)
--- NOTE | 2023-04-16 09:41 | RAD REPORT ---
EXAM DESCRIPTION: CT - Pelvis Wo Cont - 04/16/2023 9:24 am CLINICAL HISTORY: Pelvic pain status post fall COMPARISON: 2019 TECHNIQUE: Computed axial tomography of the pelvis was obtained. Coronal and sagittal reconstruction performed All CT scans are performed using dose optimization technique as appropriate and may include automated exposure control or mA/KV adjustment according to patient size. FINDINGS: Comminuted moderately displaced fracture right inferior pubic ramus. Comminuted mildly to moderately displaced fracture anterior right acetabulum. Insufficiency fracture right sacrum Lucency posterior right sacrum unchanged from 2020 likely benign No dislocation IMPRESSION: Comminuted moderately displaced fracture right inferior pubic ramus. Comminuted mildly to moderately displaced fracture anterior right acetabulum. Insufficiency fracture right sacrum
--- NOTE | 2023-04-16 11:12 | ER ---
Nurse's Notes [facility] Name: Tika Guadalupe Age: 82 yrs Sex: Female : 1940 Arrival Date: 04/16/2023 Time: 08:57 Bed 13 Private MD: Steve Heard Diagnosis: Mechanical fall;Right inferior pubic ramus fracture;Right acetabular fracture;Sacral insufficiency fracture Presentation: 04/16 09:06 Chief complaint: Patient states: Fell on Sunday while getting out of vehicle. Fell onto ll1 L buttocks area and having pain to L leg since. No head injury or LOC. Coronavirus screen: Client denies travel out of the [place] in the last 14 days. At this time, the client does not indicate any symptoms associated with coronavirus-19. Ebola Screen: Patient denies travel to an Ebola-affected area in the 21 days before illness onset. Initial Sepsis Screen: Does the patient meet any 2 criteria? No. Patient's initial sepsis screen is negative. Does the patient have a suspected source of infection? No. Patient's initial sepsis screen is negative. Risk Assessment: Do you want to hurt yourself or someone else? Patient reports no desire to harm self or others. Onset of symptoms was April 13, 2023. 09:06 Method Of Arrival: Wheelchair ll1 09:06 Acuity: APRYL 3 ll1 Triage Assessment: 09:08 General: Appears uncomfortable, Behavior is calm, cooperative, appropriate for age. ll1 Pain: Complains of pain in L hip Pain radiates to left leg Quality of pain is described as aching, Pain began 2-3 days ago. Aggravated by increased activity, repositioning, weight bearing. Musculoskeletal: Circulation, motion, and sensation intact. Capillary refill < 3 seconds. Injury Description: Bruise. Historical: - Allergies: 09:06 No Known Allergies; ll1 - PMHx: 09:06 Cancer; colon cancer; Diabetes - NIDDM; Hypertension; ll1 - PSHx: 09:06 Left Mastectomy; ll1 - Immunization history:: Adult Immunizations up to date. - Social history:: Smoking status: Patient denies any tobacco usage or history of. Screenin:06 [facility] ED Fall Risk Assessment (Adult) History of falling in the last 3 months, kc6 including since admission Yes- fall prone (multiple falls) (3 pts) Confusion or Disorientation Yes (5 pts) Intoxicated or Sedated No (0 pts) Impaired Gait Yes (1 pt) Mobility Assist Device Used Yes (1 pt) Altered Elimination No (0 pt) Score/Fall Risk Level 3 or more points = High Risk. Abuse screen: Denies threats or abuse. Denies injuries from another. Nutritional screening: No deficits noted. Tuberculosis screening: No symptoms or risk factors identified. Assessment: 09:18 General: Appears in no apparent distress. comfortable, well groomed, well developed, kc6 Behavior is calm, cooperative, appropriate for age. Pain: Complains of pain in left leg. Neuro: Level of Consciousness is awake, alert, obeys commands, Oriented to person, place, Appropriate for age. Cardiovascular: Capillary refill < 3 seconds. Respiratory: Airway is patent Trachea midline Respiratory effort is even, unlabored, Respiratory pattern is regular, symmetrical. GI: No signs and/or symptoms were reported involving the gastrointestinal system. : No signs and/or symptoms were reported regarding the genitourinary system. EENT: No signs and/or symptoms were reported regarding the EENT system. Derm: No signs and/or symptoms reported regarding the dermatologic system. Skin is intact, is healthy with good turgor, Skin is pink, warm \T\ dry. Musculoskeletal: No signs and/or symptoms reported regarding the musculoskeletal system. Circulation, motion, and sensation intact. Capillary refill < 3 seconds, Range of motion: intact in all extremities. 10:34 Reassessment: Patient appears in no apparent distress at this time. No changes from kc6 previously documented assessment. Patient and/or family updated on plan of care and expected duration. Pain level reassessed. 11:24 Reassessment: Patient appears in no apparent distress at this time. No changes from kc6 previously documented assessment. Patient and/or family updated on plan of care and expected duration. Pain level reassessed. Vital Signs: 09:06 Weight 43.09 kg; Height 4 ft. 10 in. ; Pain 6/10; ll1 09:07 BP 120 / 60; Pulse 83; Resp 18 S; Temp 98.2(O); Pulse Ox 94% on R/A; kc6 10:34 BP 119 / 57; Pulse 80; Resp 16 S; Pulse Ox 95% on R/A; kc6 11:24 BP 155 / 67; Pulse 70; Resp 16 S; Pulse Ox 95% on R/A; kc6 12:30 BP 116 / 49; Pulse 66; Resp 18; Pulse Ox 97% on R/A; me1 13:00 BP 125 / 44; Pulse 59; Resp 13; Pulse Ox 96% on R/A; me1 14:00 BP 112 / 80; Pulse 98; Resp 19; Pulse Ox 97% on R/A; me1 09:06 Body Mass Index 19.85 (43.09 kg, 147.32 cm) ll1 09:06 Pain Scale: Adult ll1 ED Course: 08:59 Patient arrived in ED. rg4 08:59 Steve Heard DO is Private Physician. rg4 09:00 Sreedhar Hargrove MD is Attending Physician. rt 09:00 Sera Hodgson RN is Primary Nurse. kc6 09:06 Arm band placed on. ll1 09:07 Patient has correct armband on for positive identification. Bed in low position. Call kc6 light in reach. Side rails up X2. Adult w/ patient. Client placed on continuous cardiac and pulse oximetry monitoring. NIBP monitoring applied. 09:07 Patient maintains SpO2 saturation greater than 95% on room air. kc6 09:08 Triage completed. ll1 09:25 CT Pelvis wo Cont In Process Unspecified. EDMS 11:11 Kishore Mitchell MD is Hospitalizing Provider. rt 11:26 Inserted saline lock: 20 gauge in right antecubital area, using aseptic technique. kc6 Blood collected. 13:24 Provided Education on: POC. Family verbalized understanding. . me1 13:24 No provider procedures requiring assistance completed. me1 18:35 Patient admitted, IV remains in place. ll1 Administered Medications: 09:18 Drug: HYDROcodone-acetaminophen PO 5 mg-325 mg 1 tabs PO once Route: PO; kc6 10:35 Follow up: Response: No adverse reaction; Pain is decreased; RASS: Alert and Calm (0) kc6 Medication: 13:24 VIS not applicable for this client. me1 Outcome: 11:11 Decision to Hospitalize by Provider. rt 18:35 Admitted to Med/surg accompanied by tech, via stretcher, room 216, with chart, Report ll1 called to EMILY Hughes 18:35 Condition: stable 18:35 Instructed on the need for admit, 18:59 Patient left the ED. ph Signatures: Dispatcher [employer] Lindsay Otoole RN RN ph Layne Guadalupe rg4 Nara Villa RN RN ll1 Sera Hodgson RN RN kc6 Sreedhar Hargrove MD MD rt Peyton Deal RN RN me1 Corrections: (The following items were deleted from the chart) 11:24 09:18 Neuro: Level of Consciousness is awake, alert, obeys commands, Oriented to kc6 person, place, time, situation, Appropriate for age kc6 11:24 10:34 Reassessment: Patient appears in no apparent distress at this time. No changes kc6 from previously documented assessment. Patient and/or family updated on plan of care and expected duration. Pain level reassessed. Patient is alert, oriented x 3, equal unlabored respirations, skin warm/dry/pink. kc6
--- NOTE | 2023-04-16 11:12 | EDPHYS ---
Physician Documentation [facility] Name: Tika Guadalupe Age: 82 yrs Sex: Female : 1940 Arrival Date: 04/16/2023 Time: 08:57 Bed 13 Private MD: Steve Heard ED Physician Sreedhar Hargrove HPI: 04/16 09:20 This 82 yrs old Female presents to ER via Wheelchair with complaints of Fall rt Injury. 09:20 Patient presents to the ED 4 days after a mechanical fall. Patient exited a vehicle, rt lost her balance falling onto her right buttock. Was reporting pain to the right hip, right buttock since then. Denies other acute complaints, symptoms are aching nature, nonradiating, moderate severity, no other aggravating elevating factors.. Historical: - Allergies: 09:06 No Known Allergies; ll1 - PMHx: 09:06 Cancer; colon cancer; Diabetes - NIDDM; Hypertension; ll1 - PSHx: 09:06 Left Mastectomy; ll1 - Immunization history:: Adult Immunizations up to date. - Social history:: Smoking status: Patient denies any tobacco usage or history of. ROS: 09:20 Constitutional: Negative for fever, chills, and weight loss, Cardiovascular: Negative rt for chest pain, palpitations, and edema, Respiratory: Negative for shortness of breath, cough, wheezing, and pleuritic chest pain, Abdomen/GI: Negative for abdominal pain, nausea, vomiting, diarrhea, and constipation, Skin: Negative for injury, rash, and discoloration, Neuro: Negative for headache, weakness, numbness, tingling, and seizure, Psych: Negative for depression, anxiety, suicide ideation, homicidal ideation, and hallucinations, 09:20 MS/extremity: Positive for decreased range of motion, pain, Exam: 09:20 Constitutional: This is a well developed, well nourished patient who is awake, alert, rt and in no acute distress. Head/Face: Normocephalic, atraumatic. Neck: Trachea midline, no thyromegaly or masses palpated, and no cervical lymphadenopathy. Supple, full range of motion without nuchal rigidity, or vertebral point tenderness. No Meningismus. Chest/axilla: Normal chest wall appearance and motion. Nontender with no deformity. No lesions are appreciated. Cardiovascular: Regular rate and rhythm with a normal S1 and S2. No gallops, murmurs, or rubs. Normal PMI, no JVD. No pulse deficits. Respiratory: Lungs have equal breath sounds bilaterally, clear to auscultation and percussion. No rales, rhonchi or wheezes noted. No increased work of breathing, no retractions or nasal flaring. Abdomen/GI: Soft, non-tender, with normal bowel sounds. No distension or tympany. No guarding or rebound. No evidence of tenderness throughout. Skin: Warm, dry with normal turgor. Normal color with no rashes, no lesions, and no evidence of cellulitis. Neuro: Awake and alert, GCS 15, oriented to person, place, time, and situation. Cranial nerves II-XII grossly intact. Motor strength 5/5 in all extremities. Sensory grossly intact. Cerebellar exam normal. Normal gait. Psych: Awake, alert, with orientation to person, place and time. Behavior, mood, and affect are within normal limits. 09:20 Musculoskeletal/extremity: Tenderness over right hip, right buttock, no deformities noted, pulses, motor, sensation intact. 11:30 ECG was reviewed by the Attending Physician. rt Vital Signs: 09:06 Weight 43.09 kg; Height 4 ft. 10 in. ; Pain 6/10; ll1 09:07 BP 120 / 60; Pulse 83; Resp 18 S; Temp 98.2(O); Pulse Ox 94% on R/A; kc6 10:34 BP 119 / 57; Pulse 80; Resp 16 S; Pulse Ox 95% on R/A; kc6 11:24 BP 155 / 67; Pulse 70; Resp 16 S; Pulse Ox 95% on R/A; kc6 12:30 BP 116 / 49; Pulse 66; Resp 18; Pulse Ox 97% on R/A; me1 13:00 BP 125 / 44; Pulse 59; Resp 13; Pulse Ox 96% on R/A; me1 14:00 BP 112 / 80; Pulse 98; Resp 19; Pulse Ox 97% on R/A; me1 09:06 Body Mass Index 19.85 (43.09 kg, 147.32 cm) ll1 09:06 Pain Scale: Adult ll1 MDM: 09:06 Patient medically screened. rt 11:09 Differential diagnosis: Fracture, contusion. Data reviewed: vital signs, nurses notes, rt radiologic studies. Consideration of Admission/Observation Patient was admitted/placed on observation. Management of patient was discussed with the following: Wheel Worker: Discussed with Dr. Richards with orthopedics as nonoperative, touchdown weightbearing, will need admission for therapy, SNF placement. I considered the following discharge prescriptions or medication management in the emergency department Medications were administered in the Emergency Department. See MAR. Independent interpretation of the following test(s) in the Emergency Department CT Scan: My interpretation is Acetabular fracture seen on interpretation of CT scan images. Care significantly affected by the following chronic conditions: Diabetes. Counseling: I had a detailed discussion with the patient and/or guardian regarding the historical points, exam findings, and any diagnostic results supporting the discharge/admit diagnosis, radiology results, the need for further work-up and treatment in the hospital. Response to treatment: the patient's symptoms have mildly improved after treatment. 04/16 11:02 Order name: Basic Metabolic Panel; Complete Time: 11:47 rt 04/16 11:02 Order name: CBC with Diff; Complete Time: 11:39 rt 04/16 11:02 Order name: LFT's; Complete Time: 11:47 rt 04/16 17:14 Order name: Glucose, Ancillary Testing; Complete Time: 17:34 EDMS 04/16 17:36 Order name: Glucose, Ancillary Testing; Complete Time: 17:50 EDMS 04/16 09:11 Order name: CT Pelvis wo Cont; Complete Time: 09:42 rt 04/16 11:02 Order name: EKG; Complete Time: 11: rt 04/16 11:02 Order name: Cardiac monitoring; Complete Time: 11:24 rt 04/16 11:02 Order name: EKG - Nurse/Tech; Complete Time: 11:24 rt 04/16 11:02 Order name: IV Saline Lock; Complete Time: 11:13 rt 04/16 11:02 Order name: Labs collected and sent; Complete Time: 11:14 rt 04/16 11:02 Order name: O2 Per Protocol; Complete Time: : rt 04/16 11:02 Order name: O2 Sat Monitoring; Complete Time: 11:14 rt EC:30 Rate is 56 beats/min. Rhythm is irregularly irregular, A fib with No ectopy. QRS [place] rt is Normal. IA interval is normal. QRS interval is normal. QT interval is normal. No Q waves. No ST changes noted. Administered Medications: 09:18 Drug: HYDROcodone-acetaminophen PO 5 mg-325 mg 1 tabs PO once Route: PO; kc6 10:35 Follow up: Response: No adverse reaction; Pain is decreased; RASS: Alert and Calm (0) kc6 Disposition Summary: 04/16/23 11:11 Hospitalization Ordered Notes: Hospitalization Status: Inpatient Admission rt Provider: Kishore Mitchell rt Condition: Stable rt Problem: new rt Symptoms: are unchanged rt Bed/Room Type: Standard rt Location: Telemetry/MedSurg (Inpatient)(04/16/23 18:21) bd Room Assignment: 202(04/16/23 18:37) bd Diagnosis - Mechanical fall rt - Right inferior pubic ramus fracture rt - Right acetabular fracture rt - Sacral insufficiency fracture rt Forms: - Medication Reconciliation Form rt - SBAR form rt - Leadership Thank You Letter rt Signatures: Dispatcher [employer] EDMS Janneth Figueroa Lee, FNP-C [employer]-Cla1 Nara Villa RN RN ll1 Sera Hodgson RN RN kc6 Sreedhar Hargrove MD MD rt Corrections: (The following items were deleted from the chart) 13:07 11:11 Telemetry/MedSurg (Inpatient) rt bd 13:07 11:11 rt bd 18:21 13:07 [facility] ER HOLD bd bd 18:21 13:07 ERHOLD- bd bd 18:37 18:21 216 bd bd
[2023-04-16 11:29] LABS: Absolute Lymphocytes (CBC) 1.2 K/uL (0.7-4.9); Lymphocytes % 12.2 % (15.3-44.8); MCV 88.8 fL (80-100); MPV 9.4 fL (7.6-11.3); Platelets 141 thou/uL (152-406); RBC Red Blood Cell Count 3.27 M/uL (3.86-4.86)
[2023-04-16 11:46] LABS: Albumin 3.2 g/dL (3.4-5.0); Bilirubin Direct 0.2 mg/dL (0-0.2); Bilirubin Indirect, Calculated 0.5 mg/dL (0.2-0.8); Bilirubin Total 0.7 mg/dL (0.2-1.0)
[2023-04-16] MEDS ORDERED: ONDANSETRON 4 MG/2 ML VIAL IV PRN (13:32)
[2023-04-16] MEDS: ENOXAPARIN 30 MG/0.3 ML SQ SCH (14:00)
--- NOTE | 2023-04-16 14:15 | P.HP ---
Certification for Inpatient Patient admitted to: Inpatient With expected LOS: >2 Midnights Patient will require the following post-hospital care: None Practitioner: I am a practitioner with admitting privileges, knowledge of patient current condition, hospital course, and medical plan of care. Services: Services provided to patient in accordance with Admission requirements found in Title 42 Section 412.3 of the Code of Federal Regulations Patient History Date of Service: 04/16/23 History of Present Illness: 82-year-old female with history of muc-jzfcaum-kdqrfxmiz diabetes, hypertension, hyperlipidemia presents emergency department chief complaint of hip pain. Her son reports that on 04/13/2023 she had a mechanical fall while stepping out of the vehicle and since then she has not been able to ambulate. At her baseline she is ambulatory without a walker around the house, she does have a walker and wheelchair at the house. With her current level of pain she is unable to ambulate even with a walker and has been needing to use wheelchair. She was evaluated in the emergency department her labs are remarkable for a glucose of 331 creatinine 1.48 hemoglobin 10.2 hematocrit [address] of the pelvis was performed which revealed comminuted and moderately displaced fracture of the right inferior pubic ramus as well as comminuted mildly to moderately displaced fracture anterior right acetabulum. Insufficiency fracture right sacrum. ED physician reached out to orthopedics who recommended admission for supportive measures, fractures likely nonoperative. Allergies No Known Allergies Allergy (Verified 01/01/13 03:28) Home Medications: Carvedilol [Coreg] 1 tab PO BID 07/11/17 Hydralazine [Apresoline*] 2 tab PO BID 07/11/17 Lovastatin 10 mg PO DAILY AT SUPPER 07/11/17 cloNIDine HCL [Catapres*] 1 tab PO BID 07/11/17 Aspirin Chewable [Aspirin Chewable*] 1 tab PO DAILY 07/04/19 Bimatoprost [Lumigan Opthalmic Drops*] 1 drop OPTH BEDTIME 07/04/19 Nifedipine Xl [Procardia XL*] 60 mg PO DAILY 07/04/19 Omeprazole [Prilosec] 40 mg PO DAILY #30 capsule. 07/04/19 - Past Medical/Surgical History Diabetic: Yes -: HTN -: DM -: Breast CA -: Hyperlipidemia -: gerd -: oestoarthirtis -: colon CA -: dementia -: LEFT MASTECTOMY -: COLON SX -: APPY -: PARTIAL HYSTERECTOMY -: Chris cataract sx Psychosocial/ Personal History: lives at home with her son - Family History Father -: Hypertension, Diabetes Notes: Mother -: Hypertension, Diabetes - Social History Smoking Status: Never smoker Alcohol use: No CD- Drugs: No Caffeine use: Yes Place of Residence: Home Review of Systems 10-point ROS is otherwise unremarkable Musculoskeletal: Leg Pain Physical Examination - Physical Exam General: Alert, In no apparent distress, Oriented x2 HEENT: Atraumatic, PERRLA, Mucous membr. moist/pink Neck: Supple, 2+ carotid pulse no bruit, No LAD Respiratory: Clear to auscultation bilaterally, Normal air movement Cardiovascular: Regular rate/rhythm, Normal S1 S2 Gastrointestinal: Normal bowel sounds, No tenderness Musculoskeletal: No tenderness Integumentary: No rashes Neurological: Normal speech, Normal strength at 5/5 x4 extr, Normal affect - Studies Laboratory Data (last 24 hrs) 04/16/23 04/16/23 11:13 11:13 WBC 9.80 Hgb 10.2 L Hct 29.0 L Plt Count 141 L Sodium 138 Potassium 4.0 BUN 33 H Creatinine 1.48 H Glucose 331 H Total Bilirubin 0.7 AST 34 ALT 29 Alkaline Phosphatase 97 Assessment and Plan - Plan Assessment: Right inferior pubic ramus fracture, anterior right acetabulum fracture, right sacral insufficiency fracture Diabetes mellitus type 7uqm-qurghah-uwxycegxp with hyperglycemia Hypertension Hyperlipidemia RYDER Plan: Right inferior pubic ramus fracture, anterior right acetabulum fracture, right sacral insufficiency fracture Orthopedic surgery consulted-likely nonoperative PT with weightbearing as tolerated right lower extremity As needed pain medications Disposition depending on patient's level of function with PT Diabetes mellitus type 6dwx-zsyfryi-tcuyannsl with hyperglycemia ACHS Accu-Chek, sliding scale insulin A1c in the morning Son reports she is supposed be on medication but has been without for some time now Will need prescriptions at discharge for diabetic management Hypertension Hyperlipidemia Continue home medications RYDER Continue gentle IV fluids overnight, recheck chemistry in the morning DVT PPX: Lovenox Code status:Full Discharge Plan: Home Plan to discharge in: 72 Hours - Advance Directives Does patient have a Living Will: No Does patient have a Durable POA for Healthcare: No - Code Status/Comfort Care Code Status Assessed: Yes (full) Critical Care: No Time Spent Managing Pts Care (In Minutes): 70
[2023-04-16] MEDS ORDERED: ENOXAPARIN 30 MG/0.3 ML SQ ONE (15:21)
[2023-04-16 15:41] VITALS: BMI 19.6
[2023-04-16] MEDS: INSULIN REGULAR (HUMAN) 100 UNIT/ML SQ SCH (16:25)
[2023-04-16] MEDS ORDERED: GLUCAGON 1 MG/VIAL IM PRN (16:26)
[2023-04-16] MEDS: INSULIN REGULAR (HUMAN) 100 UNIT/ML IV ONE (16:26)
[2023-04-16] MEDS ORDERED: D10W 250 ML BAG IV PRN (16:26)
[2023-04-16] MEDS ORDERED: INSULIN REGULAR (HUMAN) 100 UNIT/ML ONE ×2 (16:28→16:55)
[2023-04-16] MEDS ORDERED: NA CHLORIDE 0.9% 1,000 ML ONE (16:55)
[2023-04-16] MEDS: NA CHLORIDE 0.9% 1,000 ML IV SCH (17:00)
[2023-04-17 03:58] LABS: Absolute Lymphocytes (CBC) 2.2 K/uL (0.7-4.9); Hematocrit 25.7 % (36.0-45.0); Lymphocytes % 28.6 % (15.3-44.8); MCV 88.1 fL (80-100); Platelets 143 thou/uL (152-406); RBC Red Blood Cell Count 2.92 M/uL (3.86-4.86)
[2023-04-17 04:23] LABS: Potassium 3.6 mEq/L (3.5-5.1)
[2023-04-17] MEDS: HYDROCODONE/APAP 5/325 MG TAB PO PRN (04:51)
--- NOTE | 2023-04-17 13:42 | P.PN ---
Date of Service: 04/17/23 Subjective Awake and eating breakfast no complaints of pain this AM Worked with PT this AM ROS 10 point ROS as noted above, otherwise negative Physical Exam General: AAO x3, NAD, conversing well HEENT: Atraumatic, PERRLA, Mucous membr. moist/pink Neck: Supple, 2+ carotid pulse no bruit, No LAD Respiratory: Clear to auscultation bilaterally, Symmetrical chest wall movement Cardiovascular: RRR, Normal S1 S2, no murmur appreciated Gastrointestinal: Normal bowel sounds, No tenderness, bowel sounds present Musculoskeletal: No tenderness Integumentary: No rashes Neurological: Normal speech, Normal strength at 5/5 x4 extr, Normal affect Vitals Reviewed Assessment: Right inferior pubic ramus fracture, anterior right acetabulum fracture, right sacral insufficiency fracture Diabetes mellitus type 2dwu-xtseuwg-ztleevtcl with hyperglycemia Hypertension Hyperlipidemia RYDER Plan: Right inferior pubic ramus fracture, anterior right acetabulum fracture, right sacral insufficiency fracture Orthopedic surgery consulted-likely nonoperative PT with weightbearing as tolerated right lower extremity- PT evaluated today As needed pain medications Disposition depending on patient's level of function with PT Diabetes mellitus type 8tcf-ozncxel-ugszwdiiy with hyperglycemia ACHS Accu-Chek, sliding scale insulin A1c 8.5 serum glucose 164, improved from admission >300 Son reports she is supposed be on medication but has been without for some time now Will need prescriptions at discharge for diabetic management Hypertension Hyperlipidemia Continue home medications RYDER Continue gentle IV fluids overnight improved- BUN/creatinine 24.06, GFR 53 DVT PPX: Lovenox Code status:Full Discharge Plan: Home- son makes decisions Plan to discharge in: 72 Hours
[2023-04-17 13:48] VITALS: O2SAT 94
[2023-04-18 05:39] LABS: Absolute Lymphocytes (CBC) 1.4 K/uL (0.7-4.9); Hematocrit 28.1 % (36.0-45.0); Lymphocytes % 21.7 % (15.3-44.8); MCV 88.7 fL (80-100); MPV 9.3 fL (7.6-11.3); Platelets 166 thou/uL (152-406); RBC Red Blood Cell Count 3.17 M/uL (3.86-4.86)
[2023-04-18 05:43] LABS: Potassium 3.4 mEq/L (3.5-5.1)
[2023-04-18] MEDS: carvediloL 12.5 MG TAB PO SCH (08:31)
[2023-04-18] MEDS: NIFEDIPINE XL 60 MG TABLET PO SCH (08:31)
--- NOTE | 2023-04-18 12:46 | P.PN ---
Date of Service: 04/18/23 Subjective In no acute distress this AM eating breakfast independently Working with therapy, progress is slow Will require snf rehab facility ROS 10 point ROS as noted above, otherwise negative Physical Exam General: Alert and conversing, NAD HEENT: Atraumatic, PERRLA, Mucous membr. moist/pink Neck: Supple, 2+ carotid pulse no bruit Respiratory: Clear to auscultation bilaterally, Symmetrical chest wall movement, on RA Cardiovascular: RRR, Normal S1 S2, no murmur appreciated Gastrointestinal: Normal bowel sounds, No tenderness, bowel sounds present Musculoskeletal: Right hip pain, 2+ peripheral pulses Integumentary: No rashes Neurological: Normal speech, Normal strength at 5/5 x4 extr, Normal affect Vitals Reviewed Assessment: Right inferior pubic ramus fracture, anterior right acetabulum fracture, right sacral insufficiency fracture Diabetes mellitus type 1tlw-oxlvbod-gvxqcuudr with hyperglycemia Hypertension Hyperlipidemia RYDER Plan: Right inferior pubic ramus fracture, anterior right acetabulum fracture, right sacral insufficiency fracture Orthopedic surgery consulted-likely nonoperative PT with TDWB right lower extremity- progress is slow As needed pain medications Disposition depending on patient's level of function with PT- Currently PT is recommending SNF d/t slow progress Diabetes mellitus type 9rcr-mwqfxsx-pofuesmck with hyperglycemia ACHS Accu-Chek, sliding scale insulin A1c 8.5 serum glucose 164, improved from admission >300 stopped D10W IVF for better glucose control Son reports she is supposed be on medication but has been without for some time now Will need prescriptions at discharge for diabetic management Hypertension Hyperlipidemia Continue home medications hypertensive today- continue coreg and procardia RYDER- resolved improved- BUN/creatinine 15/0.91, GFR 53 DVT PPX: Lovenox Code status:Full Discharge Plan: Home- son makes decisions, will need SNF Plan to discharge in: 72 Hours
--- NOTE | 2023-04-18 16:14 | CON ---
Date of Consultation: 04/17/2023 Reason For Consultation: Right hip pain. History Of Present Illness: Tika is an 82-year-old female presented to the ER after sustaining a fa ll with subsequent pain and difficulty mobilizing her right lower extremity. The patient was brought into the emergency room and had x-rays and CT scan that demonstrated a right-sided pubic rami fractu re. The patient was admitted to floor for further evaluation, treatment, and physical therapy. The patient denies any other musculoskeletal complaints at this time. Review of Systems: As above, otherwise negative. Past Medical History: Includes hypertension, diabetes, breast cancer, hyperlipidemia, GERD, colon ca ncer, dementia. Past Surgical History: Includes left-sided mastectomy, colon surgery, appendectomy, hysterectomy, ca taract surgery. Family History: Reviewed and noncontributory. Social History: Denies tobacco, alcohol, or drug use. Lives at home. Physical Examination: General: No apparent distress. HEENT: Normocephalic, atraumatic. Neck: Supple. Cardiovascular: Brisk cap refill to all digits. Chest: Nonlabored breathing. Abdomen: Nondistended. Psychiatric: Responsive to exam. Musculoskeletal: Bilateral upper extremities, functional range of motion without pain. No gross def ormities. No obvious dislocations. Right lower extremity, no pain with internal or external rotatio n of the right hip. Some pain with hip abduction; neurovascular intact distally. Left lower extremi ty, functional range of motion without pain. No gross deformities. No obvious dislocation. Bilater al upper extremities, functional range of motion without pain. No gross deformities. No obvious dis location. Diagnostic Studies: CT scan of the pelvis demonstrates a right-sided pelvic ring injury with fractur e of the pubic rami with minimal displacement. Assessment And Plan: Tika is an 82-year-old female with right sided pelvic ring injury. I discusse d with the patient and her family at length risks and benefits associated with her treatment. There is no surgical intervention that is indicated at this time. The patient may be weightbearing as tole rated using a walker. Physical Therapy may be consulted to aid with mobilization. The patient will follow up in my clinic in 2 weeks for re-evaluation with x-rays of her pelvis. CV/MODL Voice ID: [id number] Report ID: [id number]
[2023-04-18] MEDS ORDERED: HOME MED 1 EA UNK (Lovastatin [Lovastatin] 10 MG Tablet) PO SCH (17:00)
[2023-04-18] MEDS: ATORVASTATIN 10 MG TAB PO SCH (22:01)
[2023-04-19 04:25] LABS: Absolute Lymphocytes (CBC) 1.4 K/uL (0.7-4.9); Hematocrit 27.8 % (36.0-45.0); Lymphocytes % 19.4 % (15.3-44.8); MCV 88.1 fL (80-100); MPV 8.8 fL (7.6-11.3); Platelets 189 thou/uL (152-406); RBC Red Blood Cell Count 3.16 M/uL (3.86-4.86)
[2023-04-19 04:42] LABS: Potassium 3.8 mEq/L (3.5-5.1)
[2023-04-19] MEDS: ENOXAPARIN 40 MG/0.4 ML SQ SCH (08:36)
[2023-04-19 12:42] VITALS: BP 132/57; TEMP 98.3
--- NOTE | 2023-04-19 15:09 | P.DS ---
Admission Date: 04/16/23 Discharge Date: 04/19/23 Disposition: DC HOME/HOME HEALTH CARE Discharge Condition: FAIR Vital Signs/Physical Exam: Temp Pulse Resp BP Pulse Ox 98.3 F 68 20 132/57 L 97 04/19/23 12:00 04/19/23 12:00 04/19/23 12:00 04/19/23 12:00 04/19/23 12:00 Laboratory Data at Discharge: WBC 7.40 thou/uL (4.3-10.9) 04/19/23 04:04 Hgb 9.8 g/dL (12.0-15.0) L 04/19/23 04:04 Hct 27.8 % (36.0-45.0) L 04/19/23 04:04 Plt Count 189 thou/uL (152-406) 04/19/23 04:04 Sodium 136 mEq/L (136-145) 04/19/23 04:04 Potassium 3.8 mEq/L (3.5-5.1) 04/19/23 04:04 BUN 17 mg/dL (7-18) 04/19/23 04:04 Creatinine 0.90 mg/dL (0.55-1.02) 04/19/23 04:04 Glucose 203 mg/dL (74-106) H 04/19/23 04:04 Total Bilirubin 0.7 mg/dL (0.2-1.0) 04/16/23 11:13 AST 34 U/L (15-37) 04/16/23 11:13 ALT 29 U/L (13-56) 04/16/23 11:13 Alkaline Phosphatase 97 U/L (45-117) 04/16/23 11:13 Home Medications: Carvedilol [Coreg] 1 tab PO BID 07/11/17 Lovastatin 10 mg PO DAILY AT SUPPER 07/11/17 Nifedipine Xl [Procardia XL*] 60 mg PO DAILY 07/04/19 Tramadol HCl 100 mg PO Q6H 4 Days #15 tab 04/19/23 New Medications: Tramadol HCl 100 mg PO Q6H 4 Days #15 tab Physician Discharge Instructions: Tika Guadalupe presented to the ED with complaints of frequent falls with the most recent fall resulting with a pelvic, sacral, and acetabular fracture. Orthopedic has deemed these fractures as nonoperable but will heal with appropriate physical therapy. She will be discharged home with home health physical therapy and a support family who will remain responsible for her well being and physical recovery. 1. Please call and schedule a follow-up appointment with your PCP in 3-5 days -May be able to set up a telehealth visit d/t her immobility - Please follow-up with your PCP for medication refills/adjustments 2. Please call and schedule a follow-up appointment with Dr. Richards in two weeks for orthopedic management 3. continue diabetic diet with glucose management 4. fall precautions 5. Home health physical therapy 6. return to the ED if symptoms worsen New medications Tramadol 100 mg Q6h for four days, limit of 15 tablets [facility]: P:[phone] F:[phone] [facility] P:[phone] Diet: ADA Activity: Fall precautions Followup: Steve Heard DO [Primary Care Provider] - Rafa Richards MD [ACTIVE - CAN ADMIT] -
--- NOTE | 2023-04-19 16:18 | EKG ---
Test Date: 2023-04-16 Test Time: 11:20:01 [employer]: TIFFANIE MEASUREMENT RESULTS: Intervals: Rate: 56 FL: QRSD: 78 QT: 464 QTc: 447 [place]: P: FL: QRS: 53 T: 44 INTERPRETIVE STATEMENTS: Atrial fibrillation with slow ventricular response Abnormal ECG Compared to ECG 07/04/2022 11:46:20 ST (T wave) deviation no longer present Electronically Signed On 04-19-23 16:08:39 TAPEMAN by Alvarez Judd
== END 2023-04-19 16:53 | disposition home health service (06) | DRG 551 ==
LOC: ER 08:57 → ERHOLD 12:01 → 2ND 18:36
PROVIDERS: ADMIT Hospitalist; ATTEND Internal Medicine
DX: S32.19XA Other fracture of sacrum, initial encounter for closed fracture (principal); S32.491A Other specified fracture of right acetabulum, initial encounter for closed fracture; S32.591A Other specified fracture of right pubis, initial encounter for closed fracture; N17.9 Acute kidney failure, unspecified; I10 Essential (primary) hypertension; E78.5 Hyperlipidemia, unspecified; E11.65 Type 2 diabetes mellitus with hyperglycemia; K21.9 Gastro-esophageal reflux disease without esophagitis; M19.90 Unspecified osteoarthritis, unspecified site; F03.90 Unspecified dementia, unspecified severity, without behavioral disturbance, psychotic disturbance, mood disturbance, and anxiety; Z85.3 Personal history of malignant neoplasm of breast; Z79.82 Long term (current) use of aspirin; Z90.12 Acquired absence of left breast and nipple; Z79.02 Long term (current) use of antithrombotics/antiplatelets; Z90.711 Acquired absence of uterus with remaining cervical stump; Z90.49 Acquired absence of other specified parts of digestive tract; Z79.899 Other long term (current) drug therapy; Z85.038 Personal history of other malignant neoplasm of large intestine; W18.30XA Fall on same level, unspecified, initial encounter; Y93.89 Activity, other specified; Y92.9 Unspecified place or not applicable; Y99.9 Unspecified external cause status
CPT/HCPCS: 36415; 72192; 80048; 80076; 82947; 83036; 85025; 93005; 97110; 97161; 97530; 99285; J1650; J1815; J7030

== ENCOUNTER 2023-06-28 11:06 | Emergency (ER) | payer OTHER ==
--- NOTE | 2023-06-28 12:29 | RAD REPORT ---
EXAM DESCRIPTION: RAD - Hand Left 3 View - 06/28/2023 12:20 pm CLINICAL HISTORY: 5th digit;Pain COMPARISON: No comparisons FINDINGS: Prominent diffuse osteopenia. Transverse lucency is seen in the middle phalanx of the fift h finger compatible with nondisplaced fracture. No dislocation.
--- NOTE | 2023-06-28 12:44 | ER ---
Nurse's Notes [facility] Name: Tika Guadalupe Age: 82 yrs Sex: Female : 1940 Arrival Date: 06/28/2023 Time: 11:06 Bed 13 Private MD: Diagnosis: Non-displaced fracture of left 5th finger middle phalanx Presentation: 06/27 11:15 Chief complaint: Pt c/o pain to left little finger and bruising, woke up like this. aa5 Pt's son states "I also think she has a bed sore". Coronavirus screen: At this time, the client does not indicate any symptoms associated with coronavirus-19. Ebola Screen: Patient denies travel to an Ebola-affected area in the 21 days before illness onset. Initial Sepsis Screen: Does the patient meet any 2 criteria? No. Patient's initial sepsis screen is negative. Does the patient have a suspected source of infection? No. Patient's initial sepsis screen is negative. Risk Assessment: Do you want to hurt yourself or someone else? Patient reports no desire to harm self or others. Onset of symptoms was June 28, 2023. 11:15 Acuity: APRYL 4 aa5 11:15 Method Of Arrival: Wheelchair aa5 Historical: - Allergies: 11:14 No Known Allergies; aa5 - PMHx: 11:14 Cancer; Breast; colon cancer; Diabetes - NIDDM; Hypertension; aa5 - PSHx: 11:14 Left Mastectomy; aa5 - Immunization history:: Adult Immunizations unknown. - Infectious Disease History:: Denies. - Social history:: Smoking status: Patient denies any tobacco usage or history of. - Family history:: not pertinent. - Hospitalizations: : No recent hospitalization is reported. Screenin:30 [facility] ED Fall Risk Assessment (Adult) History of falling in the last 3 months, ko1 including since admission No falls in past 3 months (0 pts) Confusion or Disorientation Yes (5 pts) Intoxicated or Sedated No (0 pts) Impaired Gait Yes (1 pt) Mobility Assist Device Used Yes (1 pt) Altered Elimination No (0 pt) Score/Fall Risk Level 3 or more points = High Risk Oriented to surroundings, Maintained a safe environment, Educated pt \\T\\ family on fall prevention, incl call for assistance when getting out of bed, Assessed \\T\\ reinforced patient's understanding of fall precautions, Provided non-skid footwear, Hourly rounding (assess needs \\T\\ fall precautionary measures) done, Used ambulatory aids as needed (educated on \\T\\ assisted with), Used gait belt as appropriate Implemented a Fall Risk Plan of Care, Apply high fall risk patient identification: yellow non skid footwear/ fall signage, Remained w/in arm's length of patient and in sight while toileting, Offered frequent toileting (1:1 observation), Remained with patient while ambulating, Utilized family, sitter, or virtual heel compressor as indicated. Abuse screen: Denies threats or abuse. Denies injuries from another. Nutritional screening: No deficits noted. Tuberculosis screening: No symptoms or risk factors identified. Assessment: 11:30 General: Appears in no apparent distress. Pain: Complains of pain in PIP of left little ko1 finger and DIP of left little finger. Neuro: No deficits noted. Cardiovascular: No deficits noted. Respiratory: No deficits noted. GI: No deficits noted. : No deficits noted. EENT: No deficits noted. Derm: Skin is thin, stage 1 sacral wound Bruising that is dark purple, on PIP of left little finger and DIP of left little finger. Musculoskeletal: No deficits noted. Vital Signs: 11:15 BP 120 / 51; Pulse 50; Resp 16 S; Temp 97.6(TE); Pulse Ox 95% on R/A; aa5 12:52 BP 118 / 54; Pulse 56; Resp 16; Pulse Ox 96% ; ko1 ED Course: 11:09 Patient arrived in ED. im 11:10 Clarke Mitchell MD is Attending Physician. rn 11:14 Arm band placed on. aa5 11:16 Triage completed. aa5 11:18 Aleyda Ruiz, EMILY is Primary Nurse. ko1 11:30 Patient has correct armband on for positive identification. Bed in low position. Call ko1 light in reach. Side rails up X2. Provided Education on: xray. Client placed on continuous cardiac and pulse oximetry monitoring. NIBP monitoring applied. teletypesetter monitor on. Door closed. Noise minimized. Lights dimmed. Warm blanket given. Pillow given. 12:21 XRAY Hand LEFT 3 View In Process Unspecified. EDMS 12:52 No provider procedures requiring assistance completed. Patient did not have IV access ko1 during this emergency room visit. 12:52 Aluminum finger splint applied to left little finger. ko1 Administered Medications: No medications were administered Medication: 11:30 VIS not applicable for this client. ko1 Outcome: 12:43 Discharge ordered by . rn 13:02 Discharged to home via wheelchair, with family, zoie 13:02 Condition: stable 13:02 Discharge instructions given to family, Instructed on discharge instructions, follow up and referral plans. Demonstrated understanding of instructions, follow-up care, splint care, 13:02 Patient left the ED. ko1 Signatures: Dispatcher [employer] EDMS Clarke Mitchell MD MD rn Calderon, Audri RN RN aa5 Aleyda Ruiz RN RN ko1 [facility]
--- NOTE | 2023-06-28 12:44 | EDPHYS ---
Physician Documentation [facility] Name: Tika Guadalupe Age: 82 yrs Sex: Female : 1940 Arrival Date: 06/28/2023 Time: 11:06 Bed 13 Private MD: ED Physician Clarke Mitchell HPI: 06/27 11:47 This 82 yrs old Female presents to ER via Wheelchair with complaints of Finger rn Injury, Buttock sore. 11:47 The patient or guardian reports a contusion, injury. The complaints affect the DIP of rn left little finger and PIP of left little finger. Onset: The symptoms/episode began/occurred last night. Modifying factors: The symptoms are alleviated by holding still, the symptoms are aggravated by movement. Associated signs and symptoms: Pertinent negatives: cyanosis distally, decreased sensation distally, numbness distally, tingling distally. Severity of symptoms: At their worst the symptoms were mild, in the emergency department the symptoms are unchanged. The patient has not experienced similar symptoms in the past. Son reports patient woke up with bruised and painful left fifth finger. Unknown how it happened. Patient with dementia. Her bed at home has rales on it. Was not found out of bed. Son also wants us to take a look at possible decubitus ulcer that is forming. He states that she had some pelvic fractures a few months ago and tends to be sedentary at home. No fever. No drainage.. Historical: - Allergies: 11:14 No Known Allergies; aa5 - PMHx: 11:14 Cancer; Breast; colon cancer; Diabetes - NIDDM; Hypertension; aa5 - PSHx: 11:14 Left Mastectomy; aa5 - Immunization history:: Adult Immunizations unknown. - Infectious Disease History:: Denies. - Social history:: Smoking status: Patient denies any tobacco usage or history of. - Family history:: not pertinent. - Hospitalizations: : No recent hospitalization is reported. ROS: 11:47 Constitutional: Negative for fever, chills, and weight loss, Neck: Negative for injury, rn pain, and swelling, Cardiovascular: Negative for chest pain, palpitations, and edema, Respiratory: Negative for shortness of breath, cough, wheezing, and pleuritic chest pain, Abdomen/GI: Negative for abdominal pain, nausea, vomiting, diarrhea, and constipation, Back: Negative for injury : Negative for injury, bleeding, discharge, and swelling, MS/Extremity: Positive for pain and bruising to left fifth digit Skin: Positive for superficial sacral pressure wound. Exam: 11:47 Constitutional: This is a well developed, well nourished patient who is awake, alert, rn and in no acute distress. Head/Face: Normocephalic, atraumatic. Chest/axilla: Normal chest wall appearance and motion. Nontender with no deformity Cardiovascular: Bradycardic, regular. No pulse deficits. Respiratory: No increased work of breathing, no retractions or nasal flaring. Abdomen/GI: Soft, non-tender MS/ Extremity: Pulses equal, no cyanosis. Neurovascular intact. Painful flexion and ecchymosis at left fifth digit at PIP and DIP. No open wounds. No redness or warmth. No streaking noted proximal to the finger. Neuro: Awake and alert, GCS 15, oriented to person, and situation. Cranial nerves II-XII grossly intact. Motor strength 5/5 in all extremities. Sensory grossly intact. Vital Signs: 11:15 BP 120 / 51; Pulse 50; Resp 16 S; Temp 97.6(TE); Pulse Ox 95% on R/A; aa5 12:52 BP 118 / 54; Pulse 56; Resp 16; Pulse Ox 96% ; ko1 MDM: 11:10 Patient medically screened. rn 12:41 Differential diagnosis: dislocation, closed fracture, contusion. Data reviewed: vital rn signs, nurses notes, radiologic studies, plain films, and as a result, I will discharge patient. Counseling: I had a detailed discussion with the patient and/or guardian regarding the historical points, exam findings, and any diagnostic results supporting the discharge/admit diagnosis, radiology results, the need for outpatient follow up, to return to the emergency department if symptoms worsen or persist or if there are any questions or concerns that arise at home. Special discussion: I discussed with the patient/guardian in detail that at this point there is no indication for admission to the hospital. It is understood, however, that if the symptoms persist or worsen the patient needs to return immediately for re-evaluation. 06/27 11:20 Order name: XRAY Hand LEFT 3 View; Complete Time: 12:41 rn 06/27 12:41 Order name: Splint - Finger; Complete Time: 13:01 rn Administered Medications: No medications were administered Disposition Summary: 06/28/23 12:43 Discharge Ordered Notes: Location: Home rn Problem: new rn Symptoms: have improved rn Condition: Stable rn Diagnosis - Non-displaced fracture of left 5th finger middle phalanx rn Followup: rn - With: Private Physician - When: As needed - Reason: Recheck today's complaints, Re-evaluation by your physician Discharge Instructions: - Discharge Summary Sheet rn - Finger Fracture, Adult rn Forms: - Medication Reconciliation Form rn - Antibiotic flange turner - Prescription Opioid Use rn - Patient Portal Instructions rn - Leadership Thank You Letter rn Signatures: Dispatcher [employer] Clarke Mcgee MD MD rn Neli Louie RN RN aa5
[2023-06-28 13:27] VITALS: BP 118/54; TEMP 97.6; O2SAT 96
== END 2023-06-28 13:02 | disposition home or self-care (01) ==
LOC: ER 11:06
PROC: 2W3KX1Z Immobilization of Left Finger using Splint (ICD-10-PCS; principal; 2023-06-28)
DX: S62.657A Nondisplaced fracture of middle phalanx of left little finger, initial encounter for closed fracture (principal); Z90.12 Acquired absence of left breast and nipple; Z85.038 Personal history of other malignant neoplasm of large intestine; Z85.3 Personal history of malignant neoplasm of breast
CPT/HCPCS: 99284